=== PATIENT | female | born 1970 | race Caucasian/White ===

== ENCOUNTER 2016-07-24 20:18 | Emergency (ER) | payer SELFPAY ==
[2016-07-24] MEDS ORDERED: NAPROXEN 250 MG TABLET PO ONE (20:44)
[2016-07-24] MEDS ORDERED: HYDROCODONE/APAP 7.5/325MG TABLET PO ONE (20:44)
--- NOTE | 2016-07-24 20:48 | Emergency Department Record ---
History of Present Illness - General Chief complaint: Pain Stated complaint: LT KNEE PAIN Time Seen by Provider: 07/24/16 20:44 Source: Patient Mode of Arrival: Ambulatory Limitations: No limitations - History of Present Illness Initial comments: 46 yo female presents to ED with a CC of left knee pain that worsened today. Patient reports that she injured her knee back in May of last year, pain improved with [place] and NSAIDs, however patient was unable to follow-up for further evaluation with a PCP for insurance reasons. Patient reports that she a lot of walking today, denies specific injury, but reports that her pain symptoms worsened today. MD Complaint: Extremity pain Onset/Timin -: Month(s) Location: Left, Knee History of Same: Yes -: Yes Arthralgia Severity scale (1-10): 8 Quality: Aching Consistency: Constant, Getting worse Improves with: Immobilization, Rest Worsens with: Exertion, Walking, Weight bearing Associated Symptoms: Denies other symptoms - Related Data Home Medications Medication Instructions Recorded Confirmed Last Taken Ropinirole HCl [Ropinirole HCl] 3 mg PO TID 04/14/14 07/24/16 07/24/16 Albuterol Sulfate 0.083% [Neb] 3 ml NEB .EVERY 4-6 HOURS PRN 12/05/15 07/24/16 07/24/16 Previous Rx's Medication Instructions Recorded Omeprazole 20 mg PO DAILY #30 cap. 04/21/16 Hydrocodone/Acetaminophen [[place] 1 tab PO Q6H PRN #15 tab 07/24/16 5mg/325mg] Naproxen [Naprosyn] 500 mg PO Q12H #30 tab. 07/24/16 Allergies Allergy/AdvReac Type Severity Reaction Status Date / Time latex Allergy Unknown BLISTERS Verified 06/04/16 17:30 morphine Allergy Unknown RASH Verified 06/04/16 17:30 nitrofurantoin Allergy Unknown MUSCLE PAIN Verified 06/04/16 17:30 nitrofurantoin Allergy Unknown MUSCLE PAIN Verified 06/04/16 17:30 macrocrystalline dexamethasone [From Decadron] Allergy BEHAVIORAL Verified 06/04/16 17:30 CHANGES dexamethasone sod phosphate Allergy BEHAVIORAL Verified 06/04/16 17:30 [From Decadron] CHANGES duloxetine HCl Allergy BEHAVIORAL Verified 06/04/16 17:30 [From Cymbalta] CHANGES levofloxacin [From Levaquin] Allergy RASH Verified 06/04/16 17:30 metoclopramide HCl AdvReac HYPERSENSIT Verified 06/04/16 17:30 [From Reglan] IVITY Travel Screening - Travel/Exposure Within Last 30 Days Have you traveled within the last 30 days?: No - Travel/Exposure Within Last Year Have you traveled outside the [place] in the last year?: No - Additonal Travel Details Have you been exposed to anyone with a communicable illness?: No - Travel Symptoms Symptom Screening: None Review of Systems Constitutional: Denies: Chills, Fever, Malaise, Night sweats Eyes: Denies: Eye discharge, Eye pain ENT: Denies: Congestion, Ear pain, Epistaxis Respiratory: Denies: Cough, Dyspnea Cardiovascular: Denies: Chest pain, Dyspnea on exertion Endocrine: Denies: Fatigue, Heat or cold intolerance Gastrointestinal: Denies: Abdominal pain, Nausea, Vomiting Genitourinary: Denies: Dysuria, Frequency, Hematuria Musculoskeletal: Reports: Arthralgia. Denies: Back pain, Gout, Joint swelling Skin: Denies: Bruising, Change in color, Rash Neurological: Denies: Abnormal gait, Confusion, Headache, Seizure Psychiatric: Denies: Anxiety Hematological/Lymphatic: Denies: Anemia, Blood Clots Past Medical History - SOCIAL HISTORY Smoking Status: Never smoker Alcohol Use: Occassional Drug Use: None - RESPIRATORY Hx Respiratory Disorders: Yes Hx Asthma: Yes - CARDIOVASCULAR Hx Cardio Disorders: No - NEURO Hx Neuro Disorders: Yes Hx Seizures: Yes (2013) - GI Hx GI Disorders: Yes Hx Reflux: Yes Comment:: gastric bypass - Hx Genitourinary Disorders: No - ENDOCRINE Hx Endocrine Disorders: No - MUSCULOSKELETAL Hx Musculoskeletal Disorders: Yes Hx Arthritis: Yes Hx Fibromyalgia: Yes - PSYCH Hx Psych Problems: Yes Hx Anxiety: Yes - HEMATOLOGY/ONCOLOGY Hx Hematology/Oncology Disorders: No Family Medical History Any Significant Family History?: No Hx Cancer: Mother Hx Heart Disease: Grandparents Physical Exam - General General Appearance: Alert, Oriented x3, Cooperative, Moderate distress (tearful on examination) Limitations: No limitations - Head Head exam: Atraumatic, Normocephalic, Normal inspection Head exam detail: negative: Abrasion, Contusion, Hernández's sign, General tenderness, Hematoma, Laceration - Eye Eye exam: Normal appearance. negative: Conjunctival injection, Periorbital swelling, Periorbital tenderness, Scleral icterus - ENT Ear exam: negative: Auricular hematoma, Auricular trauma Nasal Exam: negative: Active bleeding, Discharge, Dried blood, Foreign body Mouth exam: negative: Drooling, Laceration, Muffled voice, Tongue elevation - Neck Neck exam: Normal inspection. negative: Meningismus, Tenderness - Respiratory Respiratory exam: Normal lung sounds bilaterally. negative: Rales, Respiratory distress, Rhonchi, Stridor - Cardiovascular Cardiovascular Exam: Regular rate, Normal rhythm, Normal heart sounds - GI/Abdominal GI/Abdominal exam: Soft. negative: Rebound, Rigid, Tenderness - Rectal Rectal exam: Deferred - exam: Deferred - Extremities Extremities exam: Tenderness, Other (Mild STS to the left knee, pain with palpation to the infra-patellar region, ligaments are stalbe on examination, no effusion or signs of infection are present on examination. ). negative: Calf tenderness, Joint swelling, Pedal edema - Back Back exam: Reports: Normal inspection. Denies: CVA tenderness (R), CVA tenderness (L), Paraspinal tenderness, Rash noted - Neurological Neurological exam: Alert, Oriented X3 - Psychiatric Psychiatric exam: Normal affect, Normal mood - Skin Skin exam: Normal color. negative: Abrasion Type of lesion: negative: abrasion Course Vital Signs 07/24/16 20:24 Temperature 97.4 F L Pulse Rate [ 109 H Gyn ] Respiratory 20 Rate Blood Pressure 130/76 [Left Arm] Pulse Ox 97 - Reevaluation(s) Reevaluation #1: 07/24/16 20:53 Previous radiographs reviewed from 06/04/16, small joint effusion, medial joint compartment narrowing, no acute process noted. Patient was counseled regarding her previous radiographs and the need for follow -up/further evaluation of her knee pain, will have the patient follow-up in the [facility] specialty clinic for further evaluation of her knee pain symptoms. Disposition Disposition: Discharge Clinical Impression: Knee pain, chronic Qualifiers: Laterality: left Qualified Code(s): M25.562 - Pain in left knee Disposition: Home, Self-Care Condition: (2) Stable Instructions: Knee Pain (ED) Additional Instructions: Return to ED if your symptoms worsen or if you have any concerns. [place] and Naprosyn as directed. Crutches as directed for comfort. Follow-up in the [facility] Specialty Clinic for further evaluation of your knee pain symptoms this coming week. Prescriptions: Naproxen [Naprosyn] 500 mg PO Q12H #30 tab. Hydrocodone/Acetaminophen [[place] 5mg/325mg] 1 tab PO Q6H PRN #15 tab PRN Reason: Pain - General Referrals: BALDO TOBAR [DOCTOR OF OSTEOPATH] - [facility] Specialty Clin[facility] [Provider Group] Forms: Patient Portal Access Time of Disposition: 20:48
== END 2016-07-24 20:58 | disposition home or self-care (01) ==
LOC: ER 20:18
DX: M25.562 Pain in left knee (principal)
CPT/HCPCS: 99283

== ENCOUNTER 2016-09-24 23:06 | Emergency (ER) | payer MEDICAID ==
--- NOTE | 2016-09-24 23:31 | Emergency Department Record ---
History of Present Illness - General Chief complaint: General Stated complaint: RESTLESS LEGS Time Seen by Provider: 09/24/16 23:22 Source: Patient Mode of Arrival: Ambulatory Limitations: No limitations - History of Present Illness Initial comments: 46 yo female presents with intense restless leg syndrome. She has been out of Requip for 2 days. She states she is unable to sleep tonight due to her symptoms. No swelling. No trauma. No fever. She has been out of the medicine due to cost. MD Complaint: Extremity pain -: Days(s) Location: Bilateral History of Same: Yes -: Yes Myalgia Radiation: Distal Severity scale (1-10): 10 Consistency: Constant Improves with: Nothing Worsens with: Nothing Associated Symptoms: Denies other symptoms - Related Data Home Medications Medication Instructions Recorded Confirmed Last Taken Ropinirole HCl [Ropinirole HCl] 4 mg PO QID 04/14/14 09/24/16 09/22/16 Albuterol Sulfate 0.083% [Neb] 3 ml NEB .EVERY 4-6 HOURS PRN 12/05/15 07/24/16 07/24/16 Previous Rx's Medication Instructions Recorded Omeprazole 20 mg PO DAILY #30 cap. 04/21/16 Ropinirole HCl [Requip] 4 mg PO QID #28 tablet 09/24/16 Allergies Allergy/AdvReac Type Severity Reaction Status Date / Time latex Allergy Unknown BLISTERS Verified 09/24/16 23:11 morphine Allergy Unknown RASH Verified 09/24/16 23:11 nitrofurantoin Allergy Unknown MUSCLE PAIN Verified 09/24/16 23:11 nitrofurantoin Allergy Unknown MUSCLE PAIN Verified 09/24/16 23:11 macrocrystalline dexamethasone [From Decadron] Allergy BEHAVIORAL Verified 09/24/16 23:11 CHANGES dexamethasone sod phosphate Allergy BEHAVIORAL Verified 09/24/16 23:11 [From Decadron] CHANGES duloxetine HCl Allergy BEHAVIORAL Verified 09/24/16 23:11 [From Cymbalta] CHANGES levofloxacin [From Levaquin] Allergy RASH Verified 09/24/16 23:11 metoclopramide HCl AdvReac HYPERSENSIT Verified 09/24/16 23:11 [From Reglan] IVITY Travel Screening - Travel/Exposure Within Last 30 Days Have you traveled within the last 30 days?: No - Travel/Exposure Within Last Year Have you traveled outside the [place] in the last year?: No - Additonal Travel Details Have you been exposed to anyone with a communicable illness?: No - Travel Symptoms Symptom Screening: None Review of Systems Constitutional: Denies: Chills, Fever, Weakness Eyes: Denies: Eye discharge ENT: Denies: Congestion, Throat pain Respiratory: Denies: Cough, Dyspnea, Hemoptysis, Wheezes Cardiovascular: Denies: Chest pain, Palpitations, Syncope Endocrine: Denies: Fatigue Gastrointestinal: Denies: Abdominal pain, Diarrhea, Nausea, Vomiting Genitourinary: Denies: Dysuria, Urgency Musculoskeletal: Denies: Arthralgia, Back pain, Joint swelling, Myalgia, Neck pain Skin: Denies: Change in color, Rash Neurological: Reports: Tingling. Denies: Headache, Numbness, Weakness Psychiatric: Reports: Anxiety Hematological/Lymphatic: Denies: Blood Clots, Easy bleeding, Easy bruising, Swollen glands Past Medical History - SOCIAL HISTORY Smoking Status: Never smoker Alcohol Use: Occassional Drug Use: None - RESPIRATORY Hx Respiratory Disorders: Yes Hx Asthma: Yes - CARDIOVASCULAR Hx Cardio Disorders: No - NEURO Hx Neuro Disorders: Yes Hx Seizures: Yes (2013) - GI Hx GI Disorders: Yes Hx Reflux: Yes Comment:: gastric bypass - Hx Genitourinary Disorders: No - ENDOCRINE Hx Endocrine Disorders: No - MUSCULOSKELETAL Hx Musculoskeletal Disorders: Yes Hx Arthritis: Yes Hx Fibromyalgia: Yes - PSYCH Hx Psych Problems: Yes Hx Anxiety: Yes - HEMATOLOGY/ONCOLOGY Hx Hematology/Oncology Disorders: No Family Medical History Any Significant Family History?: No Hx Cancer: Mother Hx Heart Disease: Grandparents Physical Exam - General General Appearance: Alert, Oriented x3, Cooperative, No acute distress, Anxious Limitations: No limitations - Head Head exam: Normal inspection - Eye Eye exam: Normal appearance, PERRL. negative: Conjunctival injection, Periorbital swelling - ENT ENT exam: Normal exam Ear exam: Normal external inspection Nasal Exam: Normal inspection Mouth exam: Normal external inspection Teeth exam: Normal inspection - Neck Neck exam: Normal inspection. negative: Lymphadenopathy - Respiratory Respiratory exam: Normal lung sounds bilaterally. negative: Respiratory distress - Cardiovascular Cardiovascular Exam: Regular rate, Normal rhythm, Normal heart sounds - GI/Abdominal GI/Abdominal exam: Soft. negative: Tenderness - Rectal Rectal exam: Deferred - exam: Deferred - Extremities Extremities exam: Normal inspection, Full ROM, Normal capillary refill, Other ( no redness or warmth). negative: Pedal edema, Tenderness - Back Back exam: Denies: CVA tenderness (R), CVA tenderness (L) - Neurological Neurological exam: Alert, Normal gait, Oriented X3, Reflexes normal - Psychiatric Psychiatric exam: Normal affect, Normal mood - Skin Skin exam: Dry, Intact, Normal color, Warm Course Vital Signs 09/24/16 23:13 Temperature 98.1 F Pulse Rate 100 H Respiratory 22 Rate Blood Pressure 114/77 Pulse Ox 99 - Reevaluation(s) Reevaluation #1: Vitals reviewed. No physical findings to suggest acute process. 09/24/16 23:32 Disposition Clinical Impression: Restless leg syndrome Disposition: Home, Self-Care Condition: (1) Good Instructions: Restless Legs Syndrome (ED) Additional Instructions: Call your doctor for close follow up Return if you have any new concerns or symptoms Prescriptions: Ropinirole HCl [Requip] 4 mg PO QID #28 tablet Forms: Patient Portal Access
[2016-09-24] MEDS ORDERED: ROPINIROLE HCL 1 MG TABLET PO STA (23:32)
== END 2016-09-24 23:45 | disposition home or self-care (01) ==
LOC: ER 23:06
DX: G25.81 Restless legs syndrome (principal)
CPT/HCPCS: 99282

== ENCOUNTER 2016-10-27 17:34 | Emergency (ER) | payer MEDICAID ==
[2016-10-27] MEDS ORDERED: 0.9 % SODIUM CHLORIDE 1,000 ML BAG IV ONE (17:56)
[2016-10-27] MEDS: DIPHENHYDRAMINE HCL IV 50 MG/ML VIAL IVP ONE (18:12)
[2016-10-27 18:13] LABS: HEMATOCRIT 38.2 % (35.0-47.0); HEMOGLOBIN 11.4 gm/dl (11.6-16.0); MEAN CELL VOLUME 84.9 fl (81-97); MEAN CORPUSCULAR HEMOGLOBIN 25.3 pg (27-33); MEAN CORPUSCULAR HGB CONC 29.8 g/dl (32-36); MEAN PLATELET VOLUME 9.5 fl (7.4-10.4); PLATELET COUNT 490 K/uL (130-400); WHITE BLOOD COUNT W/O DIFF 6.4 K/uL (4.2-12.2)
[2016-10-27] MEDS: METHYLPREDNISOLONE PF 125MG/VIAL IVP ONE (18:13)
[2016-10-27 18:23] LABS: ANION GAP 11.3 (7-16); BLOOD UREA NITROGEN 12 mg/dL (7-17); CARBON DIOXIDE 14.7 mmol/L (22-30); CREATININE 0.8 mg/dL (0.52-1.04); EST GLOMERULAR FILTRATION RATE > 60 ml/min; GLUCOSE,RANDOM 137 mg/dL (70-110)
[2016-10-27 18:25] LABS: ANISOCYTOSIS 1+
--- NOTE | 2016-10-27 18:32 | Emergency Department Record ---
History of Present Illness - General Chief complaint: Rash Stated complaint: RASH ALL OVER BODY Time Seen by Provider: 10/27/16 17:55 Source: Patient, RN notes reviewed Mode of Arrival: Ambulatory - History of Present Illness Initial comments: rash on the thighs and arms and itchy and started 4 days ago and she denies no new foods and she put skin dyes on foot left and ankles and left hand Onset/Timin -: Days(s) Hx Tetanus Toxoid Vaccination: Yes Year of Tetanus Vaccination: 2015 Location: Generalized Severity: Moderate Consistency: Constant Improves with: None Worsens with: None Associated symptoms: Itching Treatments Prior to Arrival: Benadryl, OTC topical medication Treatment Prior to Arrival Comment:: 75 mg - Related Data Home Medications Medication Instructions Recorded Confirmed Last Taken Ropinirole HCl [Ropinirole HCl] 4 mg PO QID 04/14/14 10/27/16 10/27/16 Albuterol Sulfate 0.083% [Neb] 3 ml NEB .EVERY 4-6 HOURS PRN 12/05/15 07/24/16 07/24/16 Previous Rx's Medication Instructions Recorded Omeprazole 20 mg PO DAILY #30 cap. 04/21/16 Diphenhydramine HCl [Benadryl] 50 mg PO Q6H #30 cap 10/27/16 Lorazepam [Ativan] 1 mg PO TID #20 tablet 10/27/16 Prednisone [Prednisone 10Mg] 10 mg PO ASDIR #30 tab 10/27/16 Allergies Allergy/AdvReac Type Severity Reaction Status Date / Time latex Allergy Unknown BLISTERS Verified 10/27/16 17:43 morphine Allergy Unknown RASH Verified 10/27/16 17:43 nitrofurantoin Allergy Unknown MUSCLE PAIN Verified 10/27/16 17:43 nitrofurantoin Allergy Unknown MUSCLE PAIN Verified 10/27/16 17:43 macrocrystalline dexamethasone [From Decadron] Allergy BEHAVIORAL Verified 10/27/16 17:43 CHANGES dexamethasone sod phosphate Allergy BEHAVIORAL Verified 10/27/16 17:43 [From Decadron] CHANGES duloxetine HCl Allergy BEHAVIORAL Verified 10/27/16 17:43 [From Cymbalta] CHANGES levofloxacin [From Levaquin] Allergy RASH Verified 10/27/16 17:43 metoclopramide HCl AdvReac HYPERSENSIT Verified 10/27/16 17:43 [From Reglan] IVITY Travel Screening - Travel/Exposure Within Last 30 Days Have you traveled within the last 30 days?: No - Travel/Exposure Within Last Year Have you traveled outside the [place] in the last year?: No - Additonal Travel Details Have you been exposed to anyone with a communicable illness?: No - Travel Symptoms Symptom Screening: None Review of Systems Reviewed: No additional complaints except as noted below Constitutional: Reports: As per HPI. Denies: Chills, Fever, Malaise, Night sweats, Weakness, Weight change Eyes: Reports: As per HPI. Denies: Eye discharge, Eye pain, Photophobia, Vision change ENT: Reports: As per HPI. Denies: Congestion, Dental pain, Ear pain, Epistaxis , Hearing loss, Throat pain Respiratory: Reports: As per HPI. Denies: Cough, Dyspnea, Hemoptysis, Stridor, Wheezes Cardiovascular: Reports: As per HPI. Denies: Arrhythmia, Chest pain, Dyspnea on exertion, Edema, Murmurs, Orthopnea, Palpitations, Paroxysmal nocturnal dyspnea, Rheumatic Fever, Syncope Endocrine: Reports: As per HPI. Denies: Fatigue, Heat or cold intolerance, Polydipsia, Polyuria Gastrointestinal: Reports: As per HPI. Denies: Abdominal pain, Constipation, Diarrhea, Hematemesis, Hematochezia, Melena, Nausea, Vomiting Genitourinary: Reports: As per HPI. Denies: Abnormal menses, Discharge, Dyspareunia, Dysuria, Frequency, Hematuria, Incontinence, Retention, Urgency Musculoskeletal: Reports: As per HPI. Denies: Arthralgia, Back pain, Gout, Joint swelling, Myalgia, Neck pain Skin: Reports: As per HPI, Pruritus, Rash. Denies: Bruising, Change in color, Change in hair/nails, Lesions Neurological: Reports: As per HPI. Denies: Abnormal gait, Confusion, Headache, Numbness, Paresthesias, Seizure, Tingling, Tremors, Vertigo, Weakness Psychiatric: Reports: As per HPI. Denies: Anxiety, Auditory hallucinations, Depression, Homicidal thoughts, Suicidal thoughts, Visual hallucinations Hematological/Lymphatic: Reports: As per HPI. Denies: Anemia, Blood Clots, Easy bleeding, Easy bruising, Swollen glands Past Medical History - SOCIAL HISTORY Smoking Status: Never smoker Alcohol Use: Occassional Drug Use: None - RESPIRATORY Hx Respiratory Disorders: Yes Hx Asthma: Yes - CARDIOVASCULAR Hx Cardio Disorders: No - NEURO Hx Neuro Disorders: Yes Hx Seizures: Yes (2013) - GI Hx GI Disorders: Yes Hx Reflux: Yes Comment:: gastric bypass - Hx Genitourinary Disorders: No - ENDOCRINE Hx Endocrine Disorders: No - MUSCULOSKELETAL Hx Musculoskeletal Disorders: Yes Hx Arthritis: Yes Hx Fibromyalgia: Yes - PSYCH Hx Psych Problems: Yes Hx Anxiety: Yes - HEMATOLOGY/ONCOLOGY Hx Hematology/Oncology Disorders: No Family Medical History Any Significant Family History?: Yes Hx Cancer: Mother Hx Heart Disease: Grandparents Physical Exam - General General Appearance: Alert, Oriented x3, Cooperative, No acute distress - Head Head exam: Normal inspection - Eye Eye exam: Normal appearance, PERRL Pupils: Normal accommodation - ENT ENT exam: Normal exam, Mucous membranes moist, Normal external ear exam, Normal orophraynx, TM's normal bilaterally Ear exam: Normal external inspection. negative: External canal tenderness Nasal Exam: Normal inspection. negative: Discharge, Sinus tenderness Mouth exam: Normal external inspection, Tongue normal Teeth exam: Normal inspection. negative: Dental caries Throat exam: Normal inspection. negative: Tonsillar erythema, Tonsillar exudate - Neck Neck exam: Normal inspection, Full ROM. negative: Tenderness - Respiratory Respiratory exam: Normal lung sounds bilaterally. negative: Respiratory distress - Cardiovascular Cardiovascular Exam: Regular rate, Normal rhythm, Normal heart sounds - GI/Abdominal GI/Abdominal exam: Soft, Normal bowel sounds. negative: Tenderness - Rectal Rectal exam: Deferred - exam: Deferred - Extremities Extremities exam: Normal inspection, Full ROM, Normal capillary refill. negative: Tenderness - Back Back exam: Reports: Normal inspection, Full ROM. Denies: Muscle spasm, Rash noted, Tenderness - Neurological Neurological exam: Alert, Normal gait, Oriented X3, Reflexes normal - Psychiatric Psychiatric exam: Normal affect, Normal mood - Skin Skin exam: Rash, Urticaria, Other (very itchy rash) Course Vital Signs 10/27/16 10/27/16 17:44 17:45 Temperature 97.9 F 97.9 F Pulse Rate 131 H Pulse Rate [ 131 H Pulse Ox Probe] Respiratory 18 20 Rate Blood Pressure 127/89 Blood Pressure 127/89 [Left Arm] Pulse Ox 98 98 Medical Decision Making - Lab Data Result diagrams: 10/27/16 18:05 10/27/16 18:05 Lab Results 10/27/16 10/27/16 Range/Units 18:05 18:05 WBC 6.4 (4.2-12.2) K/uL RBC 4.50 (3.80-5.40) M/uL Hgb 11.4 L (11.6-16.0) gm/dl Hct 38.2 (35.0-47.0) % MCV 84.9 (81-97) fl MCH 25.3 L (27-33) pg MCHC 29.8 L (32-36) g/dl RDW 21.0 H (11.5-14.5) % Plt Count 490 H (130-400) K/uL MPV 9.5 (7.4-10.4) fl Neutrophils % 97.0 H (47-80) % Eosinophils % Not Reportable Basophils % Not Reportable Lymphocytes 3.0 L (16-45) % Monocytes 0.0 (0-9) % Anisocytosis 1+ Sodium 136 (136-145) mmol/L Potassium 3.7 (3.5-5.1) mmol/L Chloride 110 H (98-107) mmol/L Carbon Dioxide 14.7 L (22-30) mmol/L Anion Gap 11.3 (7-16) BUN 12 (7-17) mg/dL Creatinine 0.8 (0.52-1.04) mg/dL Estimated GFR > 60 ml/min Random Glucose 137 H (70-110) mg/dL Calcium 9.4 (8.5-10.1) mg/dL Disposition Clinical Impression: Urticaria, Itchy skin Disposition: Home, Self-Care Condition: (1) Good Instructions: Urticaria (ED) Additional Instructions: follow up with family in 1 to 7 days use aveno bath powder twice aday Prescriptions: Diphenhydramine HCl [Benadryl] 50 mg PO Q6H #30 cap Lorazepam [Ativan] 1 mg PO TID #20 tablet Prednisone [Prednisone 10Mg] 10 mg PO ASDIR #30 tab Forms: Patient Portal Access Time of Disposition: 18:44
[2016-10-27] MEDS: LORAZEPAM 2 MG/ML VIAL IV ONE (18:43)
--- NOTE | 2016-10-27 18:54 | Emergency Department Record ---
History of Present Illness - General Chief complaint: Rash Stated complaint: RASH ALL OVER BODY Time Seen by Provider: 10/27/16 17:55 Source: Patient, RN notes reviewed Mode of Arrival: Ambulatory - History of Present Illness Onset/Timin -: Days(s) Hx Tetanus Toxoid Vaccination: Yes Year of Tetanus Vaccination: 2015 Location: Generalized Severity: Moderate Consistency: Constant Improves with: None Worsens with: None Associated symptoms: Itching Treatments Prior to Arrival: Benadryl, OTC topical medication Treatment Prior to Arrival Comment:: 75 mg - Related Data Home Medications Medication Instructions Recorded Confirmed Last Taken Ropinirole HCl [Ropinirole HCl] 4 mg PO QID 04/14/14 10/27/16 10/27/16 Albuterol Sulfate 0.083% [Neb] 3 ml NEB .EVERY 4-6 HOURS PRN 12/05/15 07/24/16 07/24/16 Previous Rx's Medication Instructions Recorded Omeprazole 20 mg PO DAILY #30 cap.dr 04/21/16 Diphenhydramine HCl [Benadryl] 50 mg PO Q6H #30 cap 10/27/16 Diphenhydramine HCl [Benadryl] 50 mg PO Q6H #30 cap 10/27/16 Lorazepam [Ativan] 1 mg PO TID #20 tablet 10/27/16 Prednisone [Prednisone 10Mg] 10 mg PO ASDIR #30 tab 10/27/16 Prednisone [Prednisone 10Mg] 10 mg PO ASDIR #30 tab 10/27/16 Allergies Allergy/AdvReac Type Severity Reaction Status Date / Time latex Allergy Unknown BLISTERS Verified 10/27/16 17:43 morphine Allergy Unknown RASH Verified 10/27/16 17:43 nitrofurantoin Allergy Unknown MUSCLE PAIN Verified 10/27/16 17:43 nitrofurantoin Allergy Unknown MUSCLE PAIN Verified 10/27/16 17:43 macrocrystalline dexamethasone [From Decadron] Allergy BEHAVIORAL Verified 10/27/16 17:43 CHANGES dexamethasone sod phosphate Allergy BEHAVIORAL Verified 10/27/16 17:43 [From Decadron] CHANGES duloxetine HCl Allergy BEHAVIORAL Verified 10/27/16 17:43 [From Cymbalta] CHANGES levofloxacin [From Levaquin] Allergy RASH Verified 10/27/16 17:43 metoclopramide HCl AdvReac HYPERSENSIT Verified 10/27/16 17:43 [From [facility]] IVITY Travel Screening - Travel/Exposure Within Last 30 Days Have you traveled within the last 30 days?: No - Travel/Exposure Within Last Year Have you traveled outside the [place] in the last year?: No - Additonal Travel Details Have you been exposed to anyone with a communicable illness?: No - Travel Symptoms Symptom Screening: None Review of Systems Constitutional: Reports: As per HPI. Denies: Chills, Fever, Malaise, Night sweats, Weakness, Weight change Eyes: Reports: As per HPI. Denies: Eye discharge, Eye pain, Photophobia, Vision change ENT: Reports: As per HPI. Denies: Congestion, Dental pain, Ear pain, Epistaxis , Hearing loss, Throat pain Respiratory: Reports: As per HPI. Denies: Cough, Dyspnea, Hemoptysis, Stridor, Wheezes Cardiovascular: Reports: As per HPI. Denies: Arrhythmia, Chest pain, Dyspnea on exertion, Edema, Murmurs, Orthopnea, Palpitations, Paroxysmal nocturnal dyspnea, Rheumatic Fever, Syncope Endocrine: Reports: As per HPI. Denies: Fatigue, Heat or cold intolerance, Polydipsia, Polyuria Gastrointestinal: Reports: As per HPI. Denies: Abdominal pain, Constipation, Diarrhea, Hematemesis, Hematochezia, Melena, Nausea, Vomiting Genitourinary: Reports: As per HPI. Denies: Abnormal menses, Discharge, Dyspareunia, Dysuria, Frequency, Hematuria, Incontinence, Retention, Urgency Musculoskeletal: Reports: As per HPI. Denies: Arthralgia, Back pain, Gout, Joint swelling, Myalgia, Neck pain Skin: Reports: As per HPI, Pruritus, Rash. Denies: Bruising, Change in color, Change in hair/nails, Lesions Neurological: Reports: As per HPI. Denies: Abnormal gait, Confusion, Headache, Numbness, Paresthesias, Seizure, Tingling, Tremors, Vertigo, Weakness Psychiatric: Reports: As per HPI. Denies: Anxiety, Auditory hallucinations, Depression, Homicidal thoughts, Suicidal thoughts, Visual hallucinations Hematological/Lymphatic: Reports: As per HPI. Denies: Anemia, Blood Clots, Easy bleeding, Easy bruising, Swollen glands Past Medical History - SOCIAL HISTORY Smoking Status: Never smoker Alcohol Use: Occassional Drug Use: None - RESPIRATORY Hx Respiratory Disorders: Yes Hx Asthma: Yes - CARDIOVASCULAR Hx Cardio Disorders: No - NEURO Hx Neuro Disorders: Yes Hx Seizures: Yes (2013) - GI Hx GI Disorders: Yes Hx Reflux: Yes Comment:: gastric bypass - Hx Genitourinary Disorders: No - ENDOCRINE Hx Endocrine Disorders: No - MUSCULOSKELETAL Hx Musculoskeletal Disorders: Yes Hx Arthritis: Yes Hx Fibromyalgia: Yes - PSYCH Hx Psych Problems: Yes Hx Anxiety: Yes - HEMATOLOGY/ONCOLOGY Hx Hematology/Oncology Disorders: No Family Medical History Any Significant Family History?: Yes Hx Cancer: Mother Hx Heart Disease: Grandparents Course Vital Signs 10/27/16 10/27/16 17:44 17:45 Temperature 97.9 F 97.9 F Pulse Rate 131 H Pulse Rate [ 131 H Pulse Ox Probe] Respiratory 18 20 Rate Blood Pressure 127/89 Blood Pressure 127/89 [Left Arm] Pulse Ox 98 98 Medical Decision Making - Lab Data Result diagrams: 10/27/16 18:05 10/27/16 18:05 Lab Results 10/27/16 10/27/16 Range/Units 18:05 18:05 WBC 6.4 (4.2-12.2) K/uL RBC 4.50 (3.80-5.40) M/uL Hgb 11.4 L (11.6-16.0) gm/dl Hct 38.2 (35.0-47.0) % MCV 84.9 (81-97) fl MCH 25.3 L (27-33) pg MCHC 29.8 L (32-36) g/dl RDW 21.0 H (11.5-14.5) % Plt Count 490 H (130-400) K/uL MPV 9.5 (7.4-10.4) fl Neutrophils % 97.0 H (47-80) % Eosinophils % Not Reportable Basophils % Not Reportable Lymphocytes 3.0 L (16-45) % Monocytes 0.0 (0-9) % Anisocytosis 1+ Sodium 136 (136-145) mmol/L Potassium 3.7 (3.5-5.1) mmol/L Chloride 110 H (98-107) mmol/L Carbon Dioxide 14.7 L (22-30) mmol/L Anion Gap 11.3 (7-16) BUN 12 (7-17) mg/dL Creatinine 0.8 (0.52-1.04) mg/dL Estimated GFR > 60 ml/min Random Glucose 137 H (70-110) mg/dL Calcium 9.4 (8.5-10.1) mg/dL Disposition Clinical Impression: Urticaria, Itchy skin Disposition: Home, Self-Care Condition: (1) Good Instructions: Urticaria (ED) Additional Instructions: follow up with family in 1 to 7 days use aveno bath powder twice aday Prescriptions: Diphenhydramine HCl [Benadryl] 50 mg PO Q6H #30 cap Diphenhydramine HCl [Benadryl] 50 mg PO Q6H #30 cap Lorazepam [Ativan] 1 mg PO TID #20 tablet Prednisone [Prednisone 10Mg] 10 mg PO ASDIR #30 tab Prednisone [Prednisone 10Mg] 10 mg PO ASDIR #30 tab Forms: Patient Portal Access Time of Disposition: 18:54
== END 2016-10-27 19:05 | disposition home or self-care (01) ==
LOC: ER 17:34
DX: L50.9 Urticaria, unspecified (principal); L29.9 Pruritus, unspecified
CPT/HCPCS: 99284 ×2; 96374; 96375; 80048; 85027; J2060; J1200; J2930

== ENCOUNTER 2017-03-28 20:40 | Emergency (ER) | payer OTHER, MEDICAID ==
[2017-03-28] MEDS ORDERED: DEXAMETHASONE SOD PHOSPHATE 10MG/ML VIAL PO ONE (20:55)
[2017-03-28] MEDS ORDERED: PREDNISOLONE 15MG/5ML 10ML UD PO ONE (20:58)
--- NOTE | 2017-03-28 21:01 | Emergency Department Record ---
History of Present Illness - General Chief Complaint: Shortness of breath Stated Complaint: IRAJ,LOSS OF VOICE Time Seen by Provider: 03/28/17 20:55 Source: Patient Mode of Arrival: Ambulatory Limitations: No limitations - History of Present Illness Initial Comments: 46 yo female presents to ED with a CC of URI symptoms for 2 weeks resulting in loss of voice, but a stressful event that occurred tonight resulting in worsening of her "vocal cord dysfunction" symptoms. Patient also reports wheezing recently related to her asthma. Patient denies difficultly swallowing or throat swelling symptoms, and reports similar symptoms previously. Patient denies history of epiglotitis or tracheal malacia. Patient denies fevers, chills, or drooling symptoms. Onset/Timin -: Hour(s) Severity: Moderate Consistency: Constant Improves With: Nothing Worsens With: Other (talking) Known History Of: Asthma Context: Anxiety Associated Symptoms: Denies other symptoms Treatments Prior to Arrival: None - Related Data Home Oxygen Therapy: No Previous Rx's Medication Instructions Recorded Prednisone [Prednisone 20Mg] 20 mg PO TID #12 tab 03/28/17 Ropinirole HCl [Requip] 4 mg PO QID #28 tablet 03/28/17 Allergies Allergy/AdvReac Type Severity Reaction Status Date / Time latex Allergy Unknown BLISTERS Verified 10/27/16 17:43 morphine Allergy Unknown RASH Verified 10/27/16 17:43 nitrofurantoin Allergy Unknown MUSCLE PAIN Verified 10/27/16 17:43 nitrofurantoin Allergy Unknown MUSCLE PAIN Verified 10/27/16 17:43 macrocrystalline dexamethasone [From Decadron] Allergy BEHAVIORAL Verified 10/27/16 17:43 CHANGES dexamethasone sod phosphate Allergy BEHAVIORAL Verified 10/27/16 17:43 [From Decadron] CHANGES duloxetine HCl Allergy BEHAVIORAL Verified 10/27/16 17:43 [From Cymbalta] CHANGES levofloxacin [From Levaquin] Allergy RASH Verified 10/27/16 17:43 metoclopramide HCl AdvReac HYPERSENSIT Verified 10/27/16 17:43 [From Reglan] IVITY Travel Screening - Travel/Exposure Within Last 30 Days Have you traveled within the last 30 days?: No Review of Systems Constitutional: Denies: Chills, Fever, Malaise, Night sweats Eyes: Denies: Eye discharge, Eye pain ENT: Reports: Congestion, Throat pain. Denies: Ear pain, Epistaxis Respiratory: Reports: Cough, Wheezes. Denies: Dyspnea Cardiovascular: Denies: Chest pain, Dyspnea on exertion Endocrine: Denies: Fatigue, Heat or cold intolerance Gastrointestinal: Denies: Abdominal pain, Nausea, Vomiting Genitourinary: Denies: Incontinence, Retention Musculoskeletal: Denies: Arthralgia, Back pain, Gout, Joint swelling Skin: Denies: Bruising, Change in color Neurological: Denies: Abnormal gait, Confusion, Headache, Seizure Psychiatric: Reports: Anxiety Hematological/Lymphatic: Denies: Anemia, Blood Clots Past Medical History - SOCIAL HISTORY Smoking Status: Never smoker Alcohol Use: None Drug Use: None - RESPIRATORY Hx Respiratory Disorders: Yes Hx Asthma: Yes Comment:: "vocal coord disorder" - CARDIOVASCULAR Hx Cardio Disorders: No - NEURO Hx Neuro Disorders: Yes Hx Seizures: Yes (2013) - GI Hx GI Disorders: Yes Hx Reflux: Yes Comment:: gastric bypass - Hx Genitourinary Disorders: No - ENDOCRINE Hx Endocrine Disorders: No - MUSCULOSKELETAL Hx Musculoskeletal Disorders: Yes Hx Arthritis: Yes Hx Fibromyalgia: Yes - PSYCH Hx Psych Problems: Yes Hx Anxiety: Yes - HEMATOLOGY/ONCOLOGY Hx Hematology/Oncology Disorders: No Family Medical History Any Significant Family History?: Yes Hx Cancer: Mother Hx Heart Disease: Grandparents Physical Exam - General General Appearance: Alert, Oriented x3, Cooperative, Moderate distress, Anxious , Other (patient is tearful on examination, no stridor present, very mild wheezes to the bases bilaterally, no acute uppre respiratory distress noted on examination) - Head Head exam: Atraumatic, Normocephalic, Normal inspection Head exam detail: negative: Abrasion, Contusion, Hernández's sign, General tenderness, Hematoma, Laceration - Eye Eye exam: Conjunctival injection. negative: Periorbital swelling, Periorbital tenderness, Scleral icterus - ENT Ear exam: negative: Auricular hematoma, Auricular trauma Nasal Exam: negative: Active bleeding, Discharge, Dried blood, Foreign body Mouth exam: negative: Drooling, Laceration, Muffled voice, Tongue elevation - Neck Neck exam: Normal inspection. negative: Meningismus, Tenderness - Respiratory Respiratory exam: Normal lung sounds bilaterally, Wheezes (very mild to the bases bilaterally). negative: Rales, Respiratory distress - Cardiovascular Cardiovascular Exam: Regular rate, Normal rhythm, Normal heart sounds - GI/Abdominal GI/Abdominal exam: Soft. negative: Rebound, Rigid, Tenderness - Rectal Rectal exam: Deferred - exam: Deferred - Extremities Extremities exam: Normal inspection. negative: Calf tenderness, Pedal edema, Tenderness - Back Back exam: Denies: CVA tenderness (R), CVA tenderness (L) - Neurological Neurological exam: Alert, Normal gait, Oriented X3 - Psychiatric Psychiatric exam: Anxious - Skin Skin exam: Normal color. negative: Abrasion Type of lesion: negative: abrasion Course Vital Signs 03/28/17 20:46 Temperature 98.3 F Pulse Rate [ 110 H Pulse Ox Probe] Respiratory 32 H Rate Blood Pressure 116/101 [Left Arm] Pulse Ox 100 - Reevaluation(s) Reevaluation #1: 03/28/17 21:03 Patient seen and examined, Prednisolone ordered (allergy to Decadron) as well as soft-tissue neck radiographs for further evaluation. Reevaluation #2: 03/28/17 21:28 Soft-tissue neck: Naso-pharyngeal airway no adequately visualized, otherwise negative. Patient receiving cool mist at this time, will reassess in 15 minutes. Reevaluation #3: 03/28/17 21:37 Patient reassessed and updated on her ST Neck films, pulse down 87 (from 110), Biox 100%, and the patient reports that she is clinically much improved. Will continue to observe in ED. Reevaluation #4: 03/28/17 21:51 Cool mist completed/removed, patient is calm, nearly asleep and much improved. Will continue to monitor for 15-20 minutes off the cool mist and patient continues to appear well, will discharge home on Prednisone. Disposition Disposition: Discharge Clinical Impression: Laryngitis acute, spasmodic Disposition: Home, Self-Care Condition: (2) Stable Instructions: Laryngitis (ED) Additional Instructions: Return to ED if your symptoms worsen or if you have any concerns. Prednisone as directed. Follow-up with your family doctor in 1-3 days as directed. Prescriptions: Prednisone [Prednisone 20Mg] 20 mg PO TID #12 tab Ropinirole HCl [Requip] 4 mg PO QID #28 tablet Forms: Patient Portal Access Time of Disposition: 21:54 Quality - Quality Measures Quality Measures: N/A - Blood Pressure Screening Does Patient Have Any of the Following: No Blood Pressure Classification: Normal BP Reading Systolic Measurement: 106 Diastolic Measurement: 75 Screening for High Blood Pressure: < Normal BP, F/U Not Required > [G7109]
[2017-03-28] MEDS ORDERED: ROPINIROLE HCL 1 MG TABLET PO ONE (22:09)
--- NOTE | 2017-03-30 10:33 | RADIOLOGY REPORT ---
EXAM: NECK, SOFT TISSUE HISTORY: VOCAL CORD DYSFUNCTION. UPPER RESPIRATORY INFECTION FOR TWO WEEKS. COMPARISON: None. TECHNIQUE: Two-view neck soft tissues. FINDINGS: The nasopharyngeal airway is not optimally profiled. Epiglottic shadow is normal. Prevertebral soft tissues are normal. IMPRESSION: NASOPHARYNGEAL AIRWAY IS NOT OPTIMALLY PROFILED. REMAINDER OF THE STUDY IS UNREMARKABLE. JOB NUMBER: [id number] MTDD
== END 2017-03-28 22:17 | disposition home or self-care (01) ==
LOC: ER 20:40
DX: J04.0 Acute laryngitis (principal); R06.02 Shortness of breath
CPT/HCPCS: 70360; 99283

== ENCOUNTER 2017-04-17 22:00 | Emergency (ER) | payer OTHER, MEDICAID ==
--- NOTE | 2017-04-17 23:01 | Emergency Department Record ---
History of Present Illness - General Chief Complaint: General Stated Complaint: LARENGITIS Time Seen by Provider: 04/17/17 22:41 Source: Patient Mode of Arrival: Ambulatory Limitations: No limitations - History of Present Illness Initial comments: 46 yo female presents to ED for a refill on her requip medication that she takes for restless leg syndrome. Patient reports she missed an appointment with her PCP last week due to a in the family, reports that she was unable to obtain a refill on her medication. Patient also reports loss of voice symptoms for the past 5-6 weeks following an URI that she received treatment with prednisone for several weeks ago. Patient denies fevers, chills , or recent illness. Onset/Timin -: Week(s) Location: Left, Right, Lower extremity Consistency: Intermittent Improves with: Movement Worsens with: None Associated Symptoms: Denies other symptoms Treatments Prior to Arrival: None - Reynaldo Coma Scale Eye Response: (4) Open spontaneously Motor Response: (6) Obeys commands Verbal Response: (5) Oriented [place] Total: 15 - Related Data Home Medications Medication Instructions Recorded Confirmed Last Taken Ropinirole HCl [Requip] 4 mg PO TID 04/17/17 04/17/17 Unknown Previous Rx's Medication Instructions Recorded Ropinirole HCl [Requip] 4 mg PO TID #15 tablet 04/17/17 Allergies Allergy/AdvReac Type Severity Reaction Status Date / Time latex Allergy Unknown BLISTERS Verified 10/27/16 17:43 morphine Allergy Unknown RASH Verified 10/27/16 17:43 nitrofurantoin Allergy Unknown MUSCLE PAIN Verified 10/27/16 17:43 nitrofurantoin Allergy Unknown MUSCLE PAIN Verified 10/27/16 17:43 macrocrystalline dexamethasone [From Decadron] Allergy BEHAVIORAL Verified 10/27/16 17:43 CHANGES dexamethasone sod phosphate Allergy BEHAVIORAL Verified 10/27/16 17:43 [From Decadron] CHANGES duloxetine HCl Allergy BEHAVIORAL Verified 10/27/16 17:43 [From Cymbalta] CHANGES levofloxacin [From Levaquin] Allergy RASH Verified 10/27/16 17:43 metoclopramide HCl AdvReac HYPERSENSIT Verified 10/27/16 17:43 [From Reglan] IVITY Travel Screening - Travel/Exposure Within Last 30 Days Have you traveled within the last 30 days?: No Review of Systems Constitutional: Denies: Chills, Fever, Malaise, Night sweats Eyes: Denies: Eye discharge, Eye pain ENT: Reports: Other ("laryngitis for 5-6 weeks"). Denies: Congestion, Ear pain , Epistaxis Respiratory: Denies: Cough, Dyspnea Cardiovascular: Denies: Chest pain, Dyspnea on exertion Endocrine: Denies: Fatigue, Heat or cold intolerance Gastrointestinal: Denies: Abdominal pain, Nausea, Vomiting Genitourinary: Denies: Incontinence, Retention Musculoskeletal: Denies: Arthralgia, Back pain, Gout, Joint swelling Skin: Denies: Bruising, Change in color Neurological: Denies: Abnormal gait, Confusion, Headache, Seizure Psychiatric: Denies: Anxiety Hematological/Lymphatic: Denies: Anemia, Blood Clots Past Medical History - SOCIAL HISTORY Smoking Status: Never smoker Alcohol Use: None Drug Use: None - RESPIRATORY Hx Respiratory Disorders: Yes Hx Asthma: Yes Comment:: "vocal coord disorder" - CARDIOVASCULAR Hx Cardio Disorders: No - NEURO Hx Neuro Disorders: Yes Hx Seizures: Yes (2013) - GI Hx GI Disorders: Yes Hx Reflux: Yes Comment:: gastric bypass - Hx Genitourinary Disorders: No - ENDOCRINE Hx Endocrine Disorders: No - MUSCULOSKELETAL Hx Musculoskeletal Disorders: Yes Hx Arthritis: Yes Hx Fibromyalgia: Yes - PSYCH Hx Psych Problems: Yes Hx Anxiety: Yes - HEMATOLOGY/ONCOLOGY Hx Hematology/Oncology Disorders: No Family Medical History Any Significant Family History?: Yes Hx Cancer: Mother Hx Heart Disease: Grandparents Physical Exam - General General Appearance: Alert, Oriented x3, Cooperative, No acute distress, Other ( pacing room #2 due to her RLS symptoms, hoarse voice on examination) Limitations: No limitations - Head Head exam: Atraumatic, Normocephalic, Normal inspection Head exam detail: negative: Abrasion, Contusion, Hernández's sign, General tenderness, Hematoma, Laceration - Eye Eye exam: Normal appearance. negative: Conjunctival injection, Periorbital swelling, Periorbital tenderness, Scleral icterus - ENT Ear exam: negative: Auricular hematoma, Auricular trauma Nasal Exam: negative: Active bleeding, Discharge, Dried blood, Foreign body Mouth exam: negative: Drooling, Laceration, Muffled voice, Tongue elevation Throat exam: Normal inspection. negative: Tonsillar erythema, Tonsillomegaly, Tonsillar exudate, R peritonsillar mass, L peritonsillar mass - Neck Neck exam: Normal inspection. negative: Meningismus, Tenderness - Respiratory Respiratory exam: Normal lung sounds bilaterally. negative: Rales, Respiratory distress, Rhonchi, Stridor - Cardiovascular Cardiovascular Exam: Regular rate, Normal rhythm, Normal heart sounds - GI/Abdominal GI/Abdominal exam: Soft. negative: Rebound, Rigid, Tenderness - Rectal Rectal exam: Deferred - exam: Deferred - Extremities Extremities exam: negative: Calf tenderness, Pedal edema, Tenderness - Back Back exam: Denies: CVA tenderness (R), CVA tenderness (L) - Neurological Neurological exam: Alert, Normal gait, Oriented X3 - Psychiatric Psychiatric exam: Normal affect, Normal mood - Skin Skin exam: Normal color. negative: Abrasion Type of lesion: negative: abrasion Course Vital Signs 04/17/17 22:06 Temperature 97.6 F Pulse Rate 113 H Respiratory 18 Rate Blood Pressure 114/78 Pulse Ox 97 - Reevaluation(s) Reevaluation #1: 04/17/17 23:06 Patient was counseled re: follow-up with Dr. Kat for possible ENT referral for her chronic laryngitis symptoms, will refill her rtequip for 5 days as well. Patient does not appear to have an acute process involving the pharynx on examination, and appears stable for discharge at this time. Disposition Disposition: Discharge Clinical Impression: Restless leg syndrome, Chronic laryngitis Disposition: Home, Self-Care Condition: (2) Stable Instructions: Restless Legs Syndrome (ED) Additional Instructions: Return to ED if your symptoms worsen or if you have any concerns. Requip as prescribed. Follow-up with Dr. Kat for both a refill of your requip and for further evaluation of your chronic laryngitis symptoms. Prescriptions: Ropinirole HCl [Requip] 4 mg PO TID #15 tablet Forms: Patient Portal Access Time of Disposition: 23:01 Quality - Quality Measures Quality Measures: N/A - Blood Pressure Screening Does Patient Have Any of the Following: No Blood Pressure Classification: Normal BP Reading Systolic Measurement: 114 Diastolic Measurement: 78 Screening for High Blood Pressure: < Normal BP, F/U Not Required > [G8783]
== END 2017-04-17 23:05 | disposition home or self-care (01) ==
LOC: ER 22:00
DX: J37.0 Chronic laryngitis (principal); G25.81 Restless legs syndrome
CPT/HCPCS: 99282

== ENCOUNTER 2017-05-08 22:53 | Emergency (ER) | payer OTHER, MEDICAID ==
--- NOTE | 2017-05-08 23:18 | Emergency Department Record ---
History of Present Illness - General Chief complaint: Lower Extremity Pain Stated complaint: RESTLESS LEGS Time Seen by Provider: 05/08/17 22:59 Source: Patient Mode of Arrival: Ambulatory Limitations: No limitations - History of Present Illness Initial comments: 46 yo female presents to ED for evaluation of her restless legs. Patient reports that she has been unable to refill her Requip prescription due to the co -pay associated with her PCP. Patient reports that she has been out of her medication for 48 hours. MD Complaint: Other Onset/Timin -: Days(s) Location: Left, Right, Lower Leg Radiation: None Consistency: Constant Improves with: Nothing Worsens with: Nothing Associated Symptoms: Denies other symptoms - Related Data Previous Rx's Medication Instructions Recorded Ropinirole HCl [Requip] 4 mg PO TID #15 tablet 04/17/17 Ropinirole HCl [Requip] 4 mg PO TID #15 tablet 05/08/17 Allergies Allergy/AdvReac Type Severity Reaction Status Date / Time latex Allergy Unknown BLISTERS Verified 10/27/16 17:43 morphine Allergy Unknown RASH Verified 10/27/16 17:43 nitrofurantoin Allergy Unknown MUSCLE PAIN Verified 10/27/16 17:43 nitrofurantoin Allergy Unknown MUSCLE PAIN Verified 10/27/16 17:43 macrocrystalline dexamethasone [From Decadron] Allergy BEHAVIORAL Verified 10/27/16 17:43 CHANGES dexamethasone sod phosphate Allergy BEHAVIORAL Verified 10/27/16 17:43 [From Decadron] CHANGES duloxetine HCl Allergy BEHAVIORAL Verified 10/27/16 17:43 [From Cymbalta] CHANGES levofloxacin [From Levaquin] Allergy RASH Verified 10/27/16 17:43 metoclopramide HCl AdvReac HYPERSENSIT Verified 10/27/16 17:43 [From Reglan] IVITY Travel Screening - Travel/Exposure Within Last 30 Days Have you traveled within the last 30 days?: No - Travel Symptoms Symptom Screening: None Review of Systems Constitutional: Denies: Chills, Fever, Malaise, Night sweats Eyes: Denies: Eye discharge, Eye pain ENT: Denies: Congestion, Ear pain, Epistaxis Respiratory: Denies: Cough, Dyspnea Cardiovascular: Denies: Chest pain, Dyspnea on exertion Endocrine: Denies: Fatigue, Heat or cold intolerance Gastrointestinal: Denies: Abdominal pain, Nausea, Vomiting Genitourinary: Denies: Incontinence, Retention Musculoskeletal: Denies: Arthralgia, Back pain, Gout, Joint swelling Skin: Denies: Bruising, Change in color Neurological: Denies: Abnormal gait, Confusion, Headache, Seizure Psychiatric: Denies: Anxiety Hematological/Lymphatic: Denies: Anemia, Blood Clots Past Medical History - SOCIAL HISTORY Smoking Status: Never smoker - RESPIRATORY Hx Respiratory Disorders: Yes Hx Asthma: Yes Comment:: "vocal coord disorder" - CARDIOVASCULAR Hx Cardio Disorders: No - NEURO Hx Neuro Disorders: Yes Hx Seizures: Yes (2013) - GI Hx GI Disorders: Yes Hx Reflux: Yes Comment:: gastric bypass - Hx Genitourinary Disorders: No - ENDOCRINE Hx Endocrine Disorders: No - MUSCULOSKELETAL Hx Musculoskeletal Disorders: Yes Hx Arthritis: Yes Hx Fibromyalgia: Yes Comment:: RLS - PSYCH Hx Psych Problems: Yes Hx Anxiety: Yes - HEMATOLOGY/ONCOLOGY Hx Hematology/Oncology Disorders: No Family Medical History Any Significant Family History?: Yes Hx Cancer: Mother Hx Heart Disease: Grandparents Physical Exam - General General Appearance: Alert, Oriented x3, Cooperative, Moderate distress, Anxious Limitations: No limitations - Head Head exam: Atraumatic, Normocephalic, Normal inspection Head exam detail: negative: Abrasion, Contusion, Hernández's sign, General tenderness, Hematoma, Laceration - Eye Eye exam: Normal appearance. negative: Conjunctival injection, Periorbital swelling, Periorbital tenderness, Scleral icterus - ENT Ear exam: negative: Auricular hematoma, Auricular trauma Nasal Exam: negative: Active bleeding, Discharge, Dried blood, Foreign body Mouth exam: negative: Drooling, Laceration, Muffled voice, Tongue elevation - Neck Neck exam: Normal inspection. negative: Meningismus, Tenderness - Respiratory Respiratory exam: Normal lung sounds bilaterally. negative: Rales, Respiratory distress, Rhonchi, Stridor - Cardiovascular Cardiovascular Exam: Regular rate, Normal rhythm, Normal heart sounds - GI/Abdominal GI/Abdominal exam: Soft. negative: Rebound, Rigid, Tenderness - Rectal Rectal exam: Deferred - exam: Deferred - Extremities Extremities exam: negative: Calf tenderness, Pedal edema, Tenderness - Back Back exam: Denies: CVA tenderness (R), CVA tenderness (L) - Neurological Neurological exam: Alert, Normal gait, Oriented X3 - Psychiatric Psychiatric exam: Normal affect, Normal mood - Skin Skin exam: Normal color. negative: Abrasion Type of lesion: negative: abrasion Course Vital Signs 05/08/17 23:05 Temperature 98.6 F Pulse Rate 98 H Respiratory 20 Rate Blood Pressure 103/84 Pulse Ox 98 - Reevaluation(s) Reevaluation #1: 05/08/17 23:21 Patient appears stable for discharge with a refill for her Requip with instructions for follow-up. Disposition Disposition: Discharge Clinical Impression: Restless leg syndrome Disposition: Home, Self-Care Condition: (2) Stable Instructions: Restless Legs Syndrome (ED) Additional Instructions: Return to ED if your symptoms worsen or if you have any concerns. Requip as directed. Follow-up with your family doctor in 3-5 days as directed. Prescriptions: Ropinirole HCl [Requip] 4 mg PO TID #15 tablet Forms: Patient Portal Access Time of Disposition: 23:18 Quality - Quality Measures Quality Measures: N/A - Blood Pressure Screening Does Patient Have Any of the Following: No Blood Pressure Classification: Pre-Hypertensive BP Reading Systolic Measurement: 103 Diastolic Measurement: 84 Screening for High Blood Pressure: < Pre-Hypertensive BP, F/U Documented > [ G8950] Pre-Hypertensive Follow-up Interventions: Referral to alternative/primary care provider.
[2017-05-08] MEDS ORDERED: ROPINIROLE HCL 1 MG TABLET PO SCH (23:30)
== END 2017-05-08 23:35 | disposition home or self-care (01) ==
LOC: ER 22:53
DX: G25.81 Restless legs syndrome (principal); M79.661 Pain in right lower leg
CPT/HCPCS: 99282

== ENCOUNTER 2017-06-22 17:23 | Emergency (ER) | payer OTHER, MEDICAID ==
[2017-06-22] MEDS: HYDROMORPHONE HCL 1 MG/ML SYRINGE IM ONE ×2 (19:29→20:44)
[2017-06-22] MEDS: PROMETHAZINE HCL 25 MG/ML VIAL IM ONE (19:29)
--- NOTE | 2017-06-22 20:18 | Emergency Department Record ---
History of Present Illness - General Chief complaint: Dental Stated complaint: RT SIDE TOOTH PAIN Time Seen by Provider: 06/22/17 19:08 Source: Patient Mode of Arrival: Ambulatory Limitations: No limitations - History of Present Illness Initial comments: pt has had a bad tooth for 2-3 mos that she has not seen a dentist for. the pain has become unbearable and she fears ithas spread as it now hurts behind her ear. MD complaint: Ear pain, Tooth pain Onset/Timin -: Month(s) Severity: Moderate Severity scale (1-10): 10 Quality: Aching Consistency: Constant Improves with: None Worsens with: None Context- Dental: History of dental caries - Related Data Previous Rx's Medication Instructions Recorded Ropinirole HCl [Requip] 4 mg PO TID #15 tablet 04/17/17 Ropinirole HCl [Requip] 4 mg PO TID #15 tablet 05/08/17 Cephalexin [Keflex] 500 mg PO TID #20 cap 06/22/17 Hydrocodone/Acetaminophen [[place] 1 each PO Q6HR #14 tablet 06/22/17 5-325 Tablet] Allergies Allergy/AdvReac Type Severity Reaction Status Date / Time latex Allergy Unknown BLISTERS Verified 06/22/17 18:03 morphine Allergy Unknown RASH Verified 06/22/17 18:03 nitrofurantoin Allergy Unknown MUSCLE PAIN Verified 06/22/17 18:03 nitrofurantoin Allergy Unknown MUSCLE PAIN Verified 06/22/17 18:03 macrocrystalline dexamethasone [From Decadron] Allergy BEHAVIORAL Verified 06/22/17 18:03 CHANGES dexamethasone sod phosphate Allergy BEHAVIORAL Verified 06/22/17 18:03 [From Decadron] CHANGES duloxetine HCl Allergy BEHAVIORAL Verified 06/22/17 18:03 [From Cymbalta] CHANGES levofloxacin [From Levaquin] Allergy RASH Verified 06/22/17 18:03 metoclopramide HCl AdvReac HYPERSENSIT Verified 06/22/17 18:03 [From Reglan] IVITY Travel Screening - Travel/Exposure Within Last 30 Days Have you traveled within the last 30 days?: No - Travel/Exposure Within Last Year Have you traveled outside the [place] in the last year?: No - Additonal Travel Details Have you been exposed to anyone with a communicable illness?: No - Travel Symptoms Symptom Screening: None Review of Systems Reviewed: No additional complaints except as noted below Constitutional: Reports: As per HPI. Denies: Chills, Fever, Malaise, Night sweats, Weakness, Weight change Eyes: Reports: As per HPI. Denies: Eye discharge, Eye pain, Photophobia, Vision change ENT: Reports: As per HPI, Dental pain, Ear pain. Denies: Congestion, Epistaxis , Hearing loss, Throat pain Respiratory: Reports: As per HPI. Denies: Cough, Dyspnea, Hemoptysis, Stridor, Wheezes Cardiovascular: Reports: As per HPI. Denies: Arrhythmia, Chest pain, Dyspnea on exertion, Edema, Murmurs, Orthopnea, Palpitations, Paroxysmal nocturnal dyspnea, Rheumatic Fever, Syncope Endocrine: Reports: As per HPI. Denies: Fatigue, Heat or cold intolerance, Polydipsia, Polyuria Gastrointestinal: Reports: As per HPI. Denies: Abdominal pain, Constipation, Diarrhea, Hematemesis, Hematochezia, Melena, Nausea, Vomiting Genitourinary: Reports: As per HPI. Denies: Abnormal menses, Discharge, Dyspareunia, Dysuria, Frequency, Hematuria, Incontinence, Retention, Urgency Musculoskeletal: Reports: As per HPI. Denies: Arthralgia, Back pain, Gout, Joint swelling, Myalgia, Neck pain Skin: Reports: As per HPI. Denies: Bruising, Change in color, Change in hair/ nails, Lesions, Pruritus, Rash Neurological: Reports: As per HPI. Denies: Abnormal gait, Confusion, Headache, Numbness, Paresthesias, Seizure, Tingling, Tremors, Vertigo, Weakness Psychiatric: Reports: As per HPI. Denies: Anxiety, Auditory hallucinations, Depression, Homicidal thoughts, Suicidal thoughts, Visual hallucinations Hematological/Lymphatic: Reports: As per HPI. Denies: Anemia, Blood Clots, Easy bleeding, Easy bruising, Swollen glands Past Medical History - SOCIAL HISTORY Smoking Status: Never smoker Alcohol Use: Occasional Drug Use: None - RESPIRATORY Hx Respiratory Disorders: Yes Hx Asthma: Yes Comment:: "vocal coord disorder" - CARDIOVASCULAR Hx Cardio Disorders: No - NEURO Hx Neuro Disorders: Yes Hx Seizures: Yes (2013) - GI Hx GI Disorders: Yes Hx Reflux: Yes Comment:: gastric bypass - Hx Genitourinary Disorders: No - ENDOCRINE Hx Endocrine Disorders: No - MUSCULOSKELETAL Hx Musculoskeletal Disorders: Yes Hx Arthritis: Yes Hx Fibromyalgia: Yes Comment:: RLS - PSYCH Hx Psych Problems: Yes Hx Anxiety: Yes - HEMATOLOGY/ONCOLOGY Hx Hematology/Oncology Disorders: No Family Medical History Any Significant Family History?: Yes Hx Cancer: Mother Hx Heart Disease: Grandparents Physical Exam - General General Appearance: Alert, Oriented x3, Cooperative, Mild distress - Head Head exam: Normal inspection - Eye Eye exam: Normal appearance, PERRL, EOMI Pupils: Normal accommodation - ENT ENT exam: Normal exam, Mucous membranes moist, Normal external ear exam, Normal orophraynx, TM's normal bilaterally Ear exam: Normal external inspection, Other (tender over mastoid). negative: External canal tenderness Nasal Exam: Normal inspection. negative: Discharge, Sinus tenderness Mouth exam: Normal external inspection, Tongue normal Teeth exam: Dental caries, Dental tenderness # Throat exam: Normal inspection. negative: Tonsillar erythema, Tonsillar exudate - Neck Neck exam: Normal inspection, Full ROM. negative: Tenderness - Respiratory Respiratory exam: Normal lung sounds bilaterally. negative: Respiratory distress - Cardiovascular Cardiovascular Exam: Normal rhythm, Normal heart sounds, Tachycardia - GI/Abdominal GI/Abdominal exam: Soft, Normal bowel sounds. negative: Tenderness - Rectal Rectal exam: Deferred - exam: Deferred - Extremities Extremities exam: Normal inspection, Full ROM, Normal capillary refill. negative: Tenderness - Back Back exam: Reports: Normal inspection, Full ROM. Denies: Muscle spasm, Rash noted, Tenderness - Neurological Neurological exam: Alert, CN II-XII intact, Normal gait, Oriented X3 - Psychiatric Psychiatric exam: Normal affect, Normal mood - Skin Skin exam: Dry, Intact, Normal color, Warm Course Vital Signs 06/22/17 06/22/17 17:55 19:26 Temperature 99.0 F Pulse Rate 121 H Pulse Rate [ 107 H Pulse Ox Probe] Respiratory 20 22 Rate Blood Pressure 131/79 Blood Pressure 125/65 [Left Arm] Pulse Ox 96 99 Disposition Disposition: Discharge Clinical Impression: Toothache Disposition: Home, Self-Care Condition: (1) Good Instructions: Dental Abscess (ED), Toothache (ED) Additional Instructions: follow up with dentist KIERSTEN. return sooner if worse Prescriptions: Hydrocodone/Acetaminophen [[place] 5-325 Tablet] 1 each PO Q6HR #14 tablet Cephalexin [Keflex] 500 mg PO TID #20 cap Forms: Patient Portal Access Quality - Quality Measures Quality Measures: N/A - Blood Pressure Screening Does Patient Have Any of the Following: No Blood Pressure Classification: Pre-Hypertensive BP Reading Systolic Measurement: 131 Diastolic Measurement: 79 Screening for High Blood Pressure: < Pre-Hypertensive BP, F/U Documented > [ G8950] Pre-Hypertensive Follow-up Interventions: Follow-up with rescreen every year.
[2017-06-22] MEDS: KETOROLAC 30 MG/ML VIAL IM ONE (20:43)
[2017-06-22] MEDS: CEPHALEXIN 500 MG CAPSULE PO STA (20:45)
--- NOTE | 2017-06-23 19:50 | CT SCAN REPORT ---
EXAM: CT SCAN MAXILLOFACIAL WO CONTRAST HISTORY: RIGHT-SIDED DENTAL PAIN EXTENDING SUPERIORLY INTO RIGHT EAR. PAIN FOR THREE MONTHS WITH WORSENING IN LAST FOUR DAYS. TECHNIQUE: Thin-collimation helical CT examination of the facial bones is performed in the axial plane without intravenous contrast. Coronal and sagittal reformatted images are generated and reviewed. COMPARISON: Radiographic examination of the neck soft tissues dated 03/28/2017. FINDINGS: The osseous structures are normally mineralized. Dental caries are scattered throughout several teeth. The right maxillary premolars and the left canine are absent. No definite periapical lucency identified to suggest dental abscess. The paranasal sinuses are well developed. There is minimal mucosal thickening involving the floors of the maxillary sinuses. The paranasal sinuses are otherwise well aerated. The orbits as visualized are unremarkable. The parotid glands and submandibular glands, to the extent visualized, are symmetric and normal in appearance. A few nonenlarged suprahyoid lymph nodes are noted bilaterally. There is likely a small intraparotid lymph node on the right. No peripheral soft tissue mass, edema, nor fluid collection is seen. IMPRESSION: 1. MULTIPLE DENTAL CARIES BUT WITHOUT CT EVIDENCE OF ABSCESS. 2. MINIMAL MUCOSAL THICKENING WITHIN THE MAXILLARY SINUS FLOORS. 3. OTHERWISE, NEGATIVE. JOB NUMBER: [id number] MTDD
== END 2017-06-22 21:05 | disposition home or self-care (01) ==
LOC: ER 17:23
DX: K08.89 Other specified disorders of teeth and supporting structures (principal); K02.9 Dental caries, unspecified
CPT/HCPCS: 70486; 96372; 99283; 99284; J1170; J1885; J2550

== ENCOUNTER 2017-07-25 23:47 | Emergency (ER) | payer OTHER, MEDICAID ==
[2017-07-25] MEDS ORDERED: PREDNISONE 20 MG TAB PO ONE (23:58)
--- NOTE | 2017-07-26 00:03 | Emergency Department Record ---
History of Present Illness - General Chief Complaint: Cough Stated Complaint: COUGH,LENZ,BACK PAIN Time Seen by Provider: 07/25/17 23:57 Source: Patient Mode of Arrival: Ambulatory Limitations: No limitations - History of Present Illness Initial Comments: 47 yo female presents to ED for evaluation of cough, congestion, and wheezing symptoms for the past 3-4 days. Patient denies fever symptoms, does report recent ill contacts (mother). Patient does have nebulizer at home that she has not been using. MD Complaint: Cough, Nasal congestion, Sore throat Onset/Timin -: Days(s) Severity: Moderate Severity scale (1-10): 7 Consistency: Constant Improves With: Nothing Worsens With: Nothing Associated Symptoms: Headache, Myalgias - Related Data Previous Rx's Medication Instructions Recorded Ropinirole HCl [Requip] 4 mg PO TID #15 tablet 04/17/17 Ropinirole HCl [Requip] 4 mg PO TID #15 tablet 05/08/17 Benzonatate [Tessalon] 2 cap PO Q8H PRN #30 cap 07/26/17 Prednisone [Prednisone 20Mg] 20 mg PO BID #10 tab 07/26/17 Allergies Allergy/AdvReac Type Severity Reaction Status Date / Time latex Allergy Unknown BLISTERS Verified 06/22/17 18:03 morphine Allergy Unknown RASH Verified 06/22/17 18:03 nitrofurantoin Allergy Unknown MUSCLE PAIN Verified 06/22/17 18:03 nitrofurantoin Allergy Unknown MUSCLE PAIN Verified 06/22/17 18:03 macrocrystalline dexamethasone [From Decadron] Allergy BEHAVIORAL Verified 06/22/17 18:03 CHANGES dexamethasone sod phosphate Allergy BEHAVIORAL Verified 06/22/17 18:03 [From Decadron] CHANGES duloxetine HCl Allergy BEHAVIORAL Verified 06/22/17 18:03 [From Cymbalta] CHANGES levofloxacin [From Levaquin] Allergy RASH Verified 06/22/17 18:03 metoclopramide HCl AdvReac HYPERSENSIT Verified 06/22/17 18:03 [From Reglan] IVITY Travel Screening - Travel/Exposure Within Last 30 Days Have you traveled within the last 30 days?: No - Travel Symptoms Symptom Screening: Headache, Vomiting Review of Systems Constitutional: Reports: Malaise, Weakness. Denies: Chills, Fever, Night sweats Eyes: Reports: Eye discharge. Denies: Eye pain ENT: Reports: Congestion. Denies: Ear pain, Epistaxis Respiratory: Reports: Cough. Denies: Dyspnea Cardiovascular: Denies: Chest pain, Dyspnea on exertion Endocrine: Denies: Fatigue, Heat or cold intolerance Gastrointestinal: Denies: Abdominal pain, Nausea, Vomiting Genitourinary: Denies: Incontinence, Retention Musculoskeletal: Reports: Back pain. Denies: Gout, Joint swelling Skin: Denies: Bruising, Change in color Neurological: Reports: Headache. Denies: Abnormal gait, Confusion, Seizure Psychiatric: Denies: Anxiety Hematological/Lymphatic: Denies: Anemia, Blood Clots Past Medical History - SOCIAL HISTORY Smoking Status: Never smoker Drug Use: None - RESPIRATORY Hx Respiratory Disorders: Yes Hx Asthma: Yes Comment:: "vocal coord disorder" - CARDIOVASCULAR Hx Cardio Disorders: No - NEURO Hx Neuro Disorders: Yes Hx Seizures: Yes (2013) - GI Hx GI Disorders: Yes Hx Reflux: Yes Comment:: gastric bypass - Hx Genitourinary Disorders: No - ENDOCRINE Hx Endocrine Disorders: No - MUSCULOSKELETAL Hx Musculoskeletal Disorders: Yes Hx Arthritis: Yes Hx Fibromyalgia: Yes Comment:: RLS - PSYCH Hx Psych Problems: Yes Hx Anxiety: Yes - HEMATOLOGY/ONCOLOGY Hx Hematology/Oncology Disorders: No Family Medical History Hx Cancer: Mother Hx Heart Disease: Grandparents Physical Exam - General General Appearance: Alert, Oriented x3, Cooperative, Mild distress Limitations: No limitations - Head Head exam: Atraumatic, Normocephalic, Normal inspection Head exam detail: negative: Abrasion, Contusion, Hernández's sign, General tenderness, Hematoma, Laceration - Eye Eye exam: Normal appearance. negative: Conjunctival injection, Periorbital swelling, Periorbital tenderness, Scleral icterus - ENT Ear exam: negative: Auricular hematoma, Auricular trauma Nasal Exam: negative: Active bleeding, Discharge, Dried blood, Foreign body Mouth exam: negative: Drooling, Laceration, Muffled voice, Tongue elevation - Neck Neck exam: Normal inspection. negative: Meningismus, Tenderness - Respiratory Respiratory exam: Wheezes (mild wheezes bilaterally). negative: Rales, Respiratory distress, Rhonchi, Stridor - Cardiovascular Cardiovascular Exam: Normal rhythm, Normal heart sounds, Tachycardia - GI/Abdominal GI/Abdominal exam: Soft. negative: Rebound, Rigid, Tenderness - Rectal Rectal exam: Deferred - exam: Deferred - Extremities Extremities exam: Normal inspection. negative: Calf tenderness, Pedal edema, Tenderness - Back Back exam: Denies: CVA tenderness (R), CVA tenderness (L) - Neurological Neurological exam: Alert, Normal gait, Oriented X3 - Psychiatric Psychiatric exam: Normal affect, Normal mood - Skin Skin exam: Normal color. negative: Abrasion Type of lesion: negative: abrasion Course Vital Signs 07/25/17 23:54 Temperature 98.7 F Pulse Rate [ 109 H Pulse Ox Probe] Respiratory 20 Rate Blood Pressure 143/88 [Left Arm] Pulse Ox 97 - Reevaluation(s) Reevaluation #1: 07/26/17 00:12 Influenza: Negative Patient reassessed, reports improvement in her respiratory symptoms. Will treat for probable bronchitis with Prednisone and Tessalon as directed. Patient appears stable for discharge at this time. Disposition Disposition: Discharge Clinical Impression: URI (upper respiratory infection) Qualifiers: URI type: unspecified URI Qualified Code(s): J06.9 - Acute upper respiratory infection, unspecified Disposition: Home, Self-Care Condition: (2) Stable Instructions: Upper Respiratory Infection (ED) Additional Instructions: Return to ED if your symptoms worsen or if you have any concerns. Tessalon and Prednisone as directed. Follow-up with your family doctor in 3-5 days as directed. Prescriptions: Benzonatate [Tessalon] 2 cap PO Q8H PRN #30 cap PRN Reason: Cough Prednisone [Prednisone 20Mg] 20 mg PO BID #10 tab Forms: Patient Portal Access Time of Disposition: 00:03 Quality - Quality Measures Quality Measures: N/A - Blood Pressure Screening Does Patient Have Any of the Following: No Blood Pressure Classification: Pre-Hypertensive BP Reading Systolic Measurement: 143 Diastolic Measurement: 88 Screening for High Blood Pressure: < Pre-Hypertensive BP, F/U Documented > [ G8950] Pre-Hypertensive Follow-up Interventions: Referral to alternative/primary care provider.
[2017-07-26 00:10] LABS: INFLUENZA A NEGATIVE (NEGATIVE); INFLUENZA B NEGATIVE (NEGATIVE)
[2017-07-26] MEDS ORDERED: BENZONATATE 100 MG CAPSULE PO ONE (00:18)
[2017-07-26] MEDS ORDERED: IPRATROPIUM/ALBUTEROL (0.5MG/3MG) NEB INH SCH (10:00)
== END 2017-07-26 00:25 | disposition home or self-care (01) ==
LOC: ER 23:47
DX: J06.9 Acute upper respiratory infection, unspecified (principal); R05 Cough; R51 Headache
CPT/HCPCS: 99283 ×2; 87400; 94640; J7512

== ENCOUNTER 2017-09-16 05:41 | Emergency (ER) | payer OTHER, MEDICAID ==
[2017-09-16 06:09] LABS: HEMATOCRIT 33.5 % (35.0-47.0); HEMOGLOBIN 9.7 gm/dl (11.6-16.0); MEAN CELL VOLUME 86.6 fl (81-97); MEAN PLATELET VOLUME 8.7 fl (7.4-10.4); PLATELET COUNT 349 K/uL (130-400); RED BLOOD COUNT 3.87 M/uL (3.80-5.40); RED CELL DISTRIBUTION WIDTH 19.5 % (11.5-14.5); WHITE BLOOD COUNT W/O DIFF 3.9 K/uL (4.2-12.2)
[2017-09-16 06:18] LABS: BLOOD UREA NITROGEN 7 mg/dL (6-20); CREATININE 0.7 mg/dL (0.5-0.9); EST GLOMERULAR FILTRATION RATE > 60 mL/min
[2017-09-16 06:19] LABS: TOTAL PROTEIN 7.6 g/dL (6.6-8.7)
[2017-09-16 06:21] LABS: GLUCOSE,RANDOM 125 mg/dL (74-109)
[2017-09-16 06:23] LABS: ALB/GLOB RATIO 1.2 (1.1-1.8); ALBUMIN 4.1 g/dL (4.0-5.0); ALT/SGPT 17 U/L (<33); AST/SGOT 22 U/L (10.0-35.0)
[2017-09-16 06:24] LABS: ALKALINE PHOSPHATASE 120 U/L (35-104)
[2017-09-16 06:26] LABS: NTpro B-NATRIURETIC PEPTIDE 34.75 pg/mL (<125)
[2017-09-16 06:29] LABS: PLATELET ESTIMATE NORMAL (NORMAL)
--- NOTE | 2017-09-16 06:57 | Emergency Department Record ---
History of Present Illness - General Chief complaint: Swelling of legs Stated complaint: ANKLE SWELLING Time Seen by Provider: 09/16/17 05:45 Source: Patient Mode of Arrival: Ambulatory Limitations: No limitations - History of Present Illness Initial comments: pt c/o bilateral leg swelling. legs are tender from swelling. legs are equally swollen. no sob, no cp MD Complaint: Extremity pain, Extremity swelling Onset/Timin -: Days(s) Location: Bilateral Severity scale (1-10): 4 Quality: Aching Consistency: Constant Improves with: Nothing Worsens with: Walking, Weight bearing Associated Symptoms: Denies other symptoms - Related Data Previous Rx's Medication Instructions Recorded Ropinirole HCl [Requip] 4 mg PO TID #15 tablet 04/17/17 Ropinirole HCl [Requip] 4 mg PO TID #15 tablet 05/08/17 Benzonatate [Tessalon] 2 cap PO Q8H PRN #30 cap 07/26/17 Prednisone [Prednisone 20Mg] 20 mg PO BID #10 tab 07/26/17 Allergies Allergy/AdvReac Type Severity Reaction Status Date / Time latex Allergy Unknown BLISTERS Verified 06/22/17 18:03 morphine Allergy Unknown RASH Verified 06/22/17 18:03 nitrofurantoin Allergy Unknown MUSCLE PAIN Verified 06/22/17 18:03 nitrofurantoin Allergy Unknown MUSCLE PAIN Verified 06/22/17 18:03 macrocrystalline dexamethasone [From Decadron] Allergy BEHAVIORAL Verified 06/22/17 18:03 CHANGES dexamethasone sod phosphate Allergy BEHAVIORAL Verified 06/22/17 18:03 [From Decadron] CHANGES duloxetine HCl Allergy BEHAVIORAL Verified 06/22/17 18:03 [From Cymbalta] CHANGES levofloxacin [From Levaquin] Allergy RASH Verified 06/22/17 18:03 metoclopramide HCl AdvReac HYPERSENSIT Verified 06/22/17 18:03 [From Reglan] IVITY Travel Screening - Travel/Exposure Within Last 30 Days Have you traveled within the last 30 days?: No - Travel/Exposure Within Last Year Have you traveled outside the [place] in the last year?: No - Additonal Travel Details Have you been exposed to anyone with a communicable illness?: No - Travel Symptoms Symptom Screening: None Review of Systems Reviewed: No additional complaints except as noted below Constitutional: Reports: As per HPI. Denies: Chills, Fever, Malaise, Night sweats, Weakness, Weight change Eyes: Reports: As per HPI. Denies: Eye discharge, Eye pain, Photophobia, Vision change ENT: Reports: As per HPI. Denies: Congestion, Dental pain, Ear pain, Epistaxis , Hearing loss, Throat pain Respiratory: Reports: As per HPI. Denies: Cough, Dyspnea, Hemoptysis, Stridor, Wheezes Cardiovascular: Reports: As per HPI. Denies: Arrhythmia, Chest pain, Dyspnea on exertion, Edema, Murmurs, Orthopnea, Palpitations, Paroxysmal nocturnal dyspnea, Rheumatic Fever, Syncope Endocrine: Reports: As per HPI. Denies: Fatigue, Heat or cold intolerance, Polydipsia, Polyuria Gastrointestinal: Reports: As per HPI. Denies: Abdominal pain, Constipation, Diarrhea, Hematemesis, Hematochezia, Melena, Nausea, Vomiting Genitourinary: Reports: As per HPI. Denies: Abnormal menses, Discharge, Dyspareunia, Dysuria, Frequency, Hematuria, Incontinence, Retention, Urgency Musculoskeletal: Reports: As per HPI. Denies: Arthralgia, Back pain, Gout, Joint swelling, Myalgia, Neck pain Skin: Reports: As per HPI. Denies: Bruising, Change in color, Change in hair/ nails, Lesions, Pruritus, Rash Neurological: Reports: As per HPI. Denies: Abnormal gait, Confusion, Headache, Numbness, Paresthesias, Seizure, Tingling, Tremors, Vertigo, Weakness Psychiatric: Reports: As per HPI. Denies: Anxiety, Auditory hallucinations, Depression, Homicidal thoughts, Suicidal thoughts, Visual hallucinations Hematological/Lymphatic: Reports: As per HPI. Denies: Anemia, Blood Clots, Easy bleeding, Easy bruising, Swollen glands Past Medical History - SOCIAL HISTORY Smoking Status: Never smoker Alcohol Use: None Drug Use: None - RESPIRATORY Hx Respiratory Disorders: Yes Hx Asthma: Yes Comment:: "vocal coord disorder" - CARDIOVASCULAR Hx Cardio Disorders: No - NEURO Hx Neuro Disorders: Yes Hx Seizures: Yes (2013) - GI Hx GI Disorders: Yes Hx Reflux: Yes Comment:: gastric bypass - Hx Genitourinary Disorders: No - ENDOCRINE Hx Endocrine Disorders: No - MUSCULOSKELETAL Hx Musculoskeletal Disorders: Yes Hx Arthritis: Yes Hx Fibromyalgia: Yes Comment:: RLS - PSYCH Hx Psych Problems: Yes Hx Anxiety: Yes - HEMATOLOGY/ONCOLOGY Hx Hematology/Oncology Disorders: No Family Medical History Any Significant Family History?: No Hx Cancer: Mother Hx Heart Disease: Grandparents Physical Exam - General General Appearance: Alert, Oriented x3, Cooperative, Mild distress - Head Head exam: Normal inspection - Eye Eye exam: Normal appearance, PERRL, EOMI Pupils: Normal accommodation - ENT ENT exam: Normal exam, Mucous membranes moist, Normal external ear exam, Normal orophraynx Ear exam: Normal external inspection. negative: External canal tenderness Nasal Exam: Normal inspection. negative: Discharge, Sinus tenderness Mouth exam: Normal external inspection, Tongue normal Teeth exam: Normal inspection. negative: Dental caries Throat exam: Normal inspection. negative: Tonsillar erythema, Tonsillar exudate - Neck Neck exam: Normal inspection, Full ROM. negative: Tenderness - Respiratory Respiratory exam: Normal lung sounds bilaterally. negative: Respiratory distress - Cardiovascular Cardiovascular Exam: Normal rhythm, Normal heart sounds, Tachycardia - GI/Abdominal GI/Abdominal exam: Soft, Normal bowel sounds. negative: Tenderness - Rectal Rectal exam: Deferred - exam: Deferred - Extremities Extremities exam: Full ROM, Normal capillary refill, Pedal edema. negative: Tenderness - Back Back exam: Reports: Normal inspection, Full ROM. Denies: Muscle spasm, Rash noted, Tenderness - Neurological Neurological exam: Alert, CN II-XII intact, Normal gait, Oriented X3 - Psychiatric Psychiatric exam: Normal affect, Normal mood - Skin Skin exam: Dry, Intact, Normal color, Warm Course Vital Signs 09/16/17 09/16/17 05:45 06:43 Temperature 98.2 F Pulse Rate [ 123 H 102 H Pulse Ox Probe] Respiratory 20 24 Rate Blood Pressure 151/90 125/79 [Left Arm] Pulse Ox 100 100 Medical Decision Making - Lab Data Result diagrams: 09/16/17 06:00 09/16/17 06:00 Lab Results 09/16/17 09/16/17 Range/Units 06:00 06:00 WBC 3.9 L (4.2-12.2) K/uL RBC 3.87 (3.80-5.40) M/uL Hgb 9.7 L (11.6-16.0) gm/dl Hct 33.5 L (35.0-47.0) % MCV 86.6 (81-97) fl MCH 25.0 L (27-33) pg MCHC 29.0 L (32-36) g/dl RDW 19.5 H (11.5-14.5) % Plt Count 349 (130-400) K/uL MPV 8.7 (7.4-10.4) fl Neutrophils % 62.0 (47-80) % Eosinophils % Not Reportable Basophils % Not Reportable Lymphocytes 21.0 (16-45) % Monocytes 16.0 H (0-9) % Platelet Estimate Normal (NORMAL) RBC Morphology Normal Eosinophil Count 1.0 (0-6) % Sodium 135 L (136-145) mmol/L Potassium 3.6 (3.4-4.5) mmol/L Chloride 98 (98-107) mmol/L Carbon Dioxide 23.0 (22-29) mmol/L Anion Gap 14.0 (7-16) BUN 7 (6-20) mg/dL Creatinine 0.7 (0.5-0.9) mg/dL Estimated GFR > 60 mL/min Random Glucose 125 H (74-109) mg/dL Calcium 8.8 (8.6-10.0) mg/dL Total Bilirubin 0.40 (0.2-1.0) mg/dL AST 22 (10.0-35.0) U/L ALT 17 (<33) U/L Alkaline Phosphatase 120 H (35-104) U/L NT-Pro-B Natriuret Pep 34.75 (<125) pg/mL Total Protein 7.6 (6.6-8.7) g/dL Albumin 4.1 (4.0-5.0) g/dL Globulin 3.5 (1.4-4.8) gm/dL Albumin/Globulin Ratio 1.2 (1.1-1.8) Disposition Disposition: Discharge Clinical Impression: Extremity edema Anemia Qualifiers: Anemia type: iron deficiency Iron deficiency anemia type: unspecified iron deficiency Qualified Code(s): D50.9 - Iron deficiency anemia, unspecified Disposition: Home, Self-Care Condition: (1) Good Instructions: Leg Edema (ED) Additional Instructions: follow up with family doctor. elevate legs. Quality - Quality Measures Quality Measures: N/A - Blood Pressure Screening Does Patient Have Any of the Following: No Blood Pressure Classification: Pre-Hypertensive BP Reading Systolic Measurement: 125 Diastolic Measurement: 79 Screening for High Blood Pressure: < Pre-Hypertensive BP, F/U Documented > [ G8950] Pre-Hypertensive Follow-up Interventions: Follow-up with rescreen every year.
== END 2017-09-16 07:12 | disposition home or self-care (01) ==
LOC: ER 05:41
DX: R60.0 Localized edema (principal); D50.9 Iron deficiency anemia, unspecified; Z98.84 Bariatric surgery status
CPT/HCPCS: 80053; 83880; 85027; 99283

== ENCOUNTER 2017-10-04 23:16 | Emergency (ER) | payer OTHER, MEDICAID ==
--- NOTE | 2017-10-04 23:46 | Emergency Department Record ---
History of Present Illness - General Chief complaint: Swelling of legs Stated complaint: SWOLLEN FEET Time Seen by Provider: 10/04/17 23:26 Source: Patient Mode of Arrival: Ambulatory Limitations: No limitations - History of Present Illness Initial comments: 47 yo female presents to ED for evaluation of continued lower extremity edema "for several weeks". Patient was seen and evaluated in ED 09/16 for her symptoms , diagnosed with peripheral edema. Patient then went to [facility] 09/23/17 and underwent negative bilateral doppler's for DVT. Patient has been taking OTC diuretic and does report that her edema improves with lower extremity elevation. Patient is in ED for "the pain related to the swelling of her feet" . Patient reports that she does not have a PCP that she sees due to insurance issues. MD Complaint: Extremity swelling Onset/Timin -: Week(s) Location: Left, Right History of Same: Yes Radiation: Distal Severity scale (1-10): 8 Consistency: Constant Improves with: Elevation Worsens with: Nothing Associated Symptoms: Denies other symptoms - Related Data Previous Rx's Medication Instructions Recorded Ropinirole HCl [Requip] 4 mg PO TID #15 tablet 04/17/17 Ropinirole HCl [Requip] 4 mg PO TID #15 tablet 05/08/17 Benzonatate [Tessalon] 2 cap PO Q8H PRN #30 cap 07/26/17 Prednisone [Prednisone 20Mg] 20 mg PO BID #10 tab 07/26/17 Allergies Allergy/AdvReac Type Severity Reaction Status Date / Time latex Allergy Unknown BLISTERS Verified 06/22/17 18:03 morphine Allergy Unknown RASH Verified 06/22/17 18:03 nitrofurantoin Allergy Unknown MUSCLE PAIN Verified 06/22/17 18:03 nitrofurantoin Allergy Unknown MUSCLE PAIN Verified 06/22/17 18:03 macrocrystalline dexamethasone [From Decadron] Allergy BEHAVIORAL Verified 06/22/17 18:03 CHANGES dexamethasone sod phosphate Allergy BEHAVIORAL Verified 06/22/17 18:03 [From Decadron] CHANGES duloxetine HCl Allergy BEHAVIORAL Verified 06/22/17 18:03 [From Cymbalta] CHANGES levofloxacin [From Levaquin] Allergy RASH Verified 06/22/17 18:03 metoclopramide HCl AdvReac HYPERSENSIT Verified 06/22/17 18:03 [From Reglan] IVITY Travel Screening - Travel/Exposure Within Last 30 Days Have you traveled within the last 30 days?: No - Travel/Exposure Within Last Year Have you traveled outside the [place] in the last year?: No - Additonal Travel Details Have you been exposed to anyone with a communicable illness?: No - Travel Symptoms Symptom Screening: None Review of Systems Constitutional: Denies: Chills, Fever, Malaise, Night sweats Eyes: Denies: Eye discharge, Eye pain ENT: Denies: Congestion, Ear pain, Epistaxis Respiratory: Denies: Cough, Dyspnea Cardiovascular: Reports: Edema. Denies: Chest pain, Dyspnea on exertion Endocrine: Denies: Fatigue, Heat or cold intolerance Gastrointestinal: Denies: Abdominal pain, Nausea, Vomiting Genitourinary: Denies: Incontinence, Retention Musculoskeletal: Denies: Arthralgia, Back pain Skin: Denies: Bruising, Change in color Neurological: Denies: Abnormal gait, Confusion, Headache, Seizure Psychiatric: Denies: Anxiety Hematological/Lymphatic: Denies: Anemia, Blood Clots Past Medical History - SOCIAL HISTORY Smoking Status: Never smoker Alcohol Use: None Drug Use: None - RESPIRATORY Hx Respiratory Disorders: Yes Hx Asthma: Yes Comment:: "vocal coord disorder" - CARDIOVASCULAR Hx Cardio Disorders: No - NEURO Hx Neuro Disorders: Yes Hx Seizures: Yes (2013) - GI Hx GI Disorders: Yes Hx Reflux: Yes Comment:: gastric bypass - Hx Genitourinary Disorders: No - ENDOCRINE Hx Endocrine Disorders: No - MUSCULOSKELETAL Hx Musculoskeletal Disorders: Yes Hx Arthritis: Yes Hx Fibromyalgia: Yes Comment:: RLS - PSYCH Hx Psych Problems: Yes Hx Anxiety: Yes - HEMATOLOGY/ONCOLOGY Hx Hematology/Oncology Disorders: No Family Medical History Any Significant Family History?: No Hx Cancer: Mother Hx Heart Disease: Grandparents Physical Exam - General General Appearance: Alert, Oriented x3, Cooperative, Anxious, Other (tearful on examination) Limitations: No limitations - Head Head exam: Atraumatic, Normocephalic, Normal inspection Head exam detail: negative: Abrasion, Contusion, Hernández's sign, General tenderness, Hematoma, Laceration - Eye Eye exam: Normal appearance. negative: Conjunctival injection, Periorbital swelling, Periorbital tenderness, Scleral icterus - ENT Ear exam: negative: Auricular hematoma, Auricular trauma Nasal Exam: negative: Active bleeding, Discharge, Dried blood, Foreign body Mouth exam: negative: Drooling, Laceration, Muffled voice, Tongue elevation - Neck Neck exam: Normal inspection. negative: Meningismus, Tenderness - Respiratory Respiratory exam: Normal lung sounds bilaterally. negative: Rales, Respiratory distress, Rhonchi, Stridor - Cardiovascular Cardiovascular Exam: Regular rate, Normal rhythm, Normal heart sounds Peripheral Pulses: 3+: Dorsalis Pedis (R), Dorsalis Pedis (L) - GI/Abdominal GI/Abdominal exam: Soft. negative: Rebound, Rigid, Tenderness - Rectal Rectal exam: Deferred - exam: Deferred - Extremities Extremities exam: Pedal edema, Other (1+ pedal edema to the dorsum of the feet bilaterally). negative: Tenderness - Neurological Neurological exam: Alert, Normal gait, Oriented X3 - Psychiatric Psychiatric exam: Normal affect, Normal mood - Skin Skin exam: Normal color. negative: Abrasion Type of lesion: negative: abrasion Course Vital Signs 10/04/17 23:34 Temperature 98.1 F Pulse Rate [ 103 H Pulse Ox Probe] Respiratory 20 Rate Blood Pressure 110/71 [Right Arm] Pulse Ox 99 - Reevaluation(s) Reevaluation #1: 10/04/17 23:45 Labs reviewed from 09/16/17 BNP: 34.75 BUN 7/Creatinine 0.7 Hgb 9.7/HCT 33.5 Doppler reviewed from [facility] 09/23/17: Negative for bilateral DVT Was diagnosed with cellulitis and started on Keflex and Bactrim as directed. Reevaluation #2: 10/05/17 00:09 Patient was counseled re: absence of renal dysfunction, CHF, DVT, or cellulitis. Recommended compression stalkings for her symptoms with instructions for follow-up with a PCP in 1 week. Disposition Disposition: Discharge Clinical Impression: Pedal edema Disposition: Home, Self-Care Condition: (2) Stable Instructions: Edema (ED) Additional Instructions: Return to ED if your symptoms worsen or if you have any concerns. Compression stalkings as directed. Follow-up with a primary care provider in 1 week as directed. Forms: Patient Portal Access Time of Disposition: 00:12 Quality - Quality Measures Quality Measures: N/A - Blood Pressure Screening Does Patient Have Any of the Following: No Blood Pressure Classification: Normal BP Reading Systolic Measurement: 110 Diastolic Measurement: 71 Screening for High Blood Pressure: < Normal BP, F/U Not Required > [G6539]
== END 2017-10-05 00:23 | disposition home or self-care (01) ==
LOC: ER 23:16
DX: R60.0 Localized edema (principal)
CPT/HCPCS: 99282

== ENCOUNTER 2018-02-04 10:52 | Emergency (ER) | payer MEDICAID, OTHER ==
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
[2018-02-04] MEDS ORDERED: KETOROLAC 30 MG/ML VIAL IM ONE (11:09)
[2018-02-04] MEDS ORDERED: DIAZEPAM 5 MG TABLET PO ONE ×3 (11:09→12:46)
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
== END 2018-02-04 12:57 | disposition home or self-care (01) ==
LOC: ER 10:52
DX: S16.1XXA Strain of muscle, fascia and tendon at neck level, initial encounter (principal); R51 Headache; V48.1XXA Car passenger injured in noncollision transport accident in nontraffic accident, initial encounter
CPT/HCPCS: 99283; 96372; 99284; 72125; J3490; J1885

== ENCOUNTER 2018-02-20 22:57 | Emergency (ER) | payer BC ==
--- NOTE | 2018-02-20 23:24 | Emergency Department Record ---
History of Present Illness - General Chief complaint: Pain Stated complaint: RT HIP PAIN Time Seen by Provider: 02/20/18 23:19 Source: Patient Mode of Arrival: Ambulatory Limitations: No limitations - History of Present Illness Initial comments: 47 yo female presents to ED for evaluation of left inguinal pain that began this evening, worsens with hip flexion. Patient reports similar symptoms affecting the right inguinal region x 1 month which has resolved. Patient denies injury or trauma, denies fevers, chills, or recent illness. Patient denies abdominal pain, swelling to the area, or urinary symptoms, or vaginal discharge symptoms. MD Complaint: Joint pain Onset/Timin -: Hour(s) Location: Left History of Same: Yes Radiation: None Severity scale (1-10): >10 Quality: Aching, Dull, Other Consistency: Constant, Intermittent Improves with: Nothing Worsens with: Exertion, Walking, Weight bearing Associated Symptoms: Denies other symptoms - Related Data Previous Rx's Medication Instructions Recorded Ropinirole HCl [Requip] 4 mg PO TID #15 tablet 04/17/17 Allergies Allergy/AdvReac Type Severity Reaction Status Date / Time latex Allergy Unknown BLISTERS Verified 02/20/18 23:11 morphine Allergy Unknown RASH Verified 02/20/18 23:11 nitrofurantoin Allergy Unknown MUSCLE PAIN Verified 02/20/18 23:11 nitrofurantoin Allergy Unknown MUSCLE PAIN Verified 02/20/18 23:11 macrocrystalline dexamethasone [From Decadron] Allergy BEHAVIORAL Verified 02/20/18 23:11 CHANGES dexamethasone sod phosphate Allergy BEHAVIORAL Verified 02/20/18 23:11 [From Decadron] CHANGES duloxetine HCl Allergy BEHAVIORAL Verified 02/20/18 23:11 [From Cymbalta] CHANGES levofloxacin [From Levaquin] Allergy RASH Verified 02/20/18 23:11 metoclopramide HCl AdvReac HYPERSENSIT Verified 02/20/18 23:11 [From Reglan] IVITY Travel Screening - Travel/Exposure Within Last 30 Days Have you traveled within the last 30 days?: No - Travel/Exposure Within Last Year Have you traveled outside the [place] in the last year?: No - Additonal Travel Details Have you been exposed to anyone with a communicable illness?: No - Travel Symptoms Symptom Screening: None Review of Systems Constitutional: Denies: Chills, Fever, Malaise, Night sweats Eyes: Denies: Eye discharge, Eye pain ENT: Denies: Congestion, Ear pain, Epistaxis Respiratory: Denies: Cough, Dyspnea Cardiovascular: Denies: Chest pain, Dyspnea on exertion Endocrine: Denies: Fatigue, Heat or cold intolerance Gastrointestinal: Denies: Abdominal pain, Constipation, Nausea, Vomiting Genitourinary: Denies: Incontinence, Retention Musculoskeletal: Reports: Myalgia (Inguinal pain). Denies: Arthralgia, Back pain, Gout, Joint swelling Skin: Denies: Bruising, Change in color Neurological: Denies: Abnormal gait, Confusion, Headache, Seizure Psychiatric: Denies: Anxiety Hematological/Lymphatic: Denies: Anemia, Blood Clots Past Medical History - SOCIAL HISTORY Smoking Status: Never smoker Alcohol Use: Occasional Drug Use: None - RESPIRATORY Hx Respiratory Disorders: Yes Hx Asthma: Yes Comment:: "vocal coord disorder" - CARDIOVASCULAR Hx Cardio Disorders: No - NEURO Hx Neuro Disorders: Yes Hx Seizures: Yes (2013) - GI Hx GI Disorders: Yes Hx Reflux: Yes Comment:: gastric bypass - Hx Genitourinary Disorders: No - ENDOCRINE Hx Endocrine Disorders: No - MUSCULOSKELETAL Hx Musculoskeletal Disorders: Yes Hx Arthritis: Yes Hx Fibromyalgia: Yes Comment:: RLS - PSYCH Hx Psych Problems: Yes Hx Anxiety: Yes - HEMATOLOGY/ONCOLOGY Hx Hematology/Oncology Disorders: No Family Medical History Any Significant Family History?: No Hx Cancer: Mother Hx Heart Disease: Grandparents Physical Exam - General General Appearance: Alert, Oriented x3, Cooperative, Moderate distress, Other ( tearful on examination, pain with hip flexion) Limitations: No limitations - Head Head exam: Atraumatic, Normocephalic, Normal inspection Head exam detail: negative: Abrasion, Contusion, Hernández's sign, General tenderness, Hematoma, Laceration - Eye Eye exam: Normal appearance. negative: Conjunctival injection, Periorbital swelling, Periorbital tenderness, Scleral icterus - ENT Ear exam: negative: Auricular hematoma, Auricular trauma Nasal Exam: negative: Active bleeding, Discharge, Dried blood, Foreign body Mouth exam: negative: Drooling, Laceration, Muffled voice, Tongue elevation - Neck Neck exam: Normal inspection. negative: Meningismus, Tenderness - Respiratory Respiratory exam: Normal lung sounds bilaterally. negative: Rales, Respiratory distress, Rhonchi, Stridor - Cardiovascular Cardiovascular Exam: Regular rate, Normal rhythm, Normal heart sounds - GI/Abdominal GI/Abdominal exam: Soft. negative: Rebound, Rigid, Tenderness - Rectal Rectal exam: Deferred - exam: Deferred - Extremities Extremities exam: Tenderness (TTP to the left inguinal region along the iliacus insertion, no lymphadenopathy is present, no STS or erythema to suggest infection.). negative: Calf tenderness, Pedal edema - Back Back exam: Denies: CVA tenderness (R), CVA tenderness (L) - Neurological Neurological exam: Alert, Normal gait, Oriented X3 - Psychiatric Psychiatric exam: Normal affect, Normal mood - Skin Skin exam: Normal color. negative: Abrasion Type of lesion: negative: abrasion Course Vital Signs 02/20/18 23:04 Temperature 98.3 F Pulse Rate [ 113 H Pulse Ox Probe] Respiratory 28 H Rate Blood Pressure 131/57 [Left Arm] Pulse Ox 99 - Reevaluation(s) Reevaluation #1: 02/20/18 23:25 MAPS was reviewed: Last Narcotic prescription was 08/21. Patient has numerous narcotic prescriptions (#15) from 12 different providers at different EDs. Will obtain UA and CT imaging of the area of concern to evaluation of possible lymphadenoapthy vs. other acute process. Will administer Solumedrol in the ED for likely joint inflammation. Reevaluation #2: 02/21/18 00:24 UA and HCG reviewed and are both negative. Patient is back from CT imaging, results are pending. Reevaluation #3: 02/21/18 00:41 CT Imaging: Divertiulosis without diverticulitis No other acute abnormality of the LLQ Patient was reassessed, she is snoring loudly sleeping, arouses to light touch. Patient reports that she is feeling much better following Solumedrol, and appears stable for discharge with outpatient follow-up in 1-3 days. Disposition Disposition: Discharge Clinical Impression: Inguinal pain Qualifiers: Laterality: left Qualified Code(s): R10.32 - Left lower quadrant pain Disposition: Home, Self-Care Condition: (2) Stable Instructions: Groin Pain (ED) Additional Instructions: Return to ED if your symptoms worsen or if you have any concerns. Follow-up with your family doctor in 1-3 days as directed. Forms: Patient Portal Access Time of Disposition: 00:43 Quality - Quality Measures Quality Measures: N/A - Blood Pressure Screening Does Patient Have Any of the Following: No Blood Pressure Classification: Pre-Hypertensive BP Reading Systolic Measurement: 131 Diastolic Measurement: 57 Screening for High Blood Pressure: < Pre-Hypertensive BP, F/U Documented > [ G8950] Pre-Hypertensive Follow-up Interventions: Referral to alternative/primary care provider.
[2018-02-20] MEDS ORDERED: METHYLPREDNISOLONE PF 125MG/VIAL IVP SCH (23:30)
[2018-02-20] MEDS ORDERED: METHYLPREDNISOLONE PF 125MG/VIAL IM SCH (23:35)
[2018-02-20 23:48] LABS: URINE APPEARANCE SL CLOUDY; URINE BILIRUBIN NEGATIVE (NEGATIVE); URINE BLOOD NEGATIVE (NEGATIVE); URINE COLOR YELLOW; URINE GLUCOSE (UA) NEGATIVE (NEGATIVE); URINE KETONE TRACE (NEGATIVE); URINE LEUKOCYTE ESTERASE NEGATIVE (NEGATIVE); URINE NITRITE NEGATIVE (NEGATIVE); URINE PROTEIN NEGATIVE (NEGATIVE); URINE UROBILINOGEN 0.2 E.U./dL (0.20 - 1.00)
[2018-02-20 23:51] LABS: HCG,QUALITATIVE URINE NEGATIVE (NEGATIVE)
== END 2018-02-21 00:54 | disposition home or self-care (01) ==
LOC: ER 22:57
DX: R10.32 Left lower quadrant pain (principal); M25.551 Pain in right hip
CPT/HCPCS: 72192; 81003; 81025; 96372; 99283; 99284; J2930

== ENCOUNTER 2018-05-26 18:39 | Observation (INO) | payer BC ==
[2018-05-26] MEDS ORDERED: IPRATROPIUM/ALBUTEROL (0.5MG/3MG) NEB INH ONE (19:07)
[2018-05-26] MEDS ORDERED: METHYLPREDNISOLONE PF 125MG/VIAL IVP ONE (19:07)
--- NOTE | 2018-05-26 19:07 | Emergency Department Record ---
History of Present Illness - General Chief complaint: Flu Like Symptoms Stated complaint: IRAJ Time Seen by Provider: 05/26/18 18:51 Source: Patient Mode of Arrival: Ambulatory Limitations: No limitations - History of Present Illness Initial comments: pt has been sick for a few days w productive cough, sob, wheezing. Onset/Timin -: Days(s) Consistency: Intermittent, Getting worse Associated Symptoms: Denies other symptoms - Reynaldo Coma Scale Eye Response: (4) Open spontaneously Motor Response: (6) Obeys commands Verbal Response: (5) Oriented Reynaldo Total: 15 - Related Data Previous Rx's Medication Instructions Recorded Ropinirole HCl [Requip] 4 mg PO TID #15 tablet 04/17/17 Allergies Allergy/AdvReac Type Severity Reaction Status Date / Time latex Allergy Unknown BLISTERS Verified 05/26/18 18:48 morphine Allergy Unknown RASH Verified 05/26/18 18:48 nitrofurantoin Allergy Unknown MUSCLE PAIN Verified 05/26/18 18:48 nitrofurantoin Allergy Unknown MUSCLE PAIN Verified 05/26/18 18:48 macrocrystalline dexamethasone [From Decadron] Allergy BEHAVIORAL Verified 05/26/18 18:48 CHANGES dexamethasone sod phosphate Allergy BEHAVIORAL Verified 05/26/18 18:48 [From Decadron] CHANGES duloxetine HCl Allergy BEHAVIORAL Verified 05/26/18 18:48 [From Cymbalta] CHANGES levofloxacin [From Levaquin] Allergy RASH Verified 05/26/18 18:48 metoclopramide HCl AdvReac HYPERSENSIT Verified 05/26/18 18:48 [From Reglan] IVITY Travel Screening - Travel/Exposure Within Last 30 Days Have you traveled within the last 30 days?: No - Travel/Exposure Within Last Year Have you traveled outside the [place] in the last year?: No - Additonal Travel Details Have you been exposed to anyone with a communicable illness?: No - Travel Symptoms Symptom Screening: None Review of Systems Reviewed: No additional complaints except as noted below Constitutional: Reports: As per HPI. Denies: Chills, Fever, Malaise, Night sweats, Weakness, Weight change Eyes: Reports: As per HPI. Denies: Eye discharge, Eye pain, Photophobia, Vision change ENT: Reports: As per HPI. Denies: Congestion, Dental pain, Ear pain, Epistaxis , Hearing loss, Throat pain Respiratory: Reports: As per HPI, Cough, Wheezes. Denies: Dyspnea, Hemoptysis, Stridor Cardiovascular: Reports: As per HPI. Denies: Arrhythmia, Chest pain, Dyspnea on exertion, Edema, Murmurs, Orthopnea, Palpitations, Paroxysmal nocturnal dyspnea, Rheumatic Fever, Syncope Endocrine: Reports: As per HPI. Denies: Fatigue, Heat or cold intolerance, Polydipsia, Polyuria Gastrointestinal: Reports: As per HPI. Denies: Abdominal pain, Constipation, Diarrhea, Hematemesis, Hematochezia, Melena, Nausea, Vomiting Genitourinary: Reports: As per HPI. Denies: Abnormal menses, Discharge, Dyspareunia, Dysuria, Frequency, Hematuria, Incontinence, Retention, Urgency Musculoskeletal: Reports: As per HPI. Denies: Arthralgia, Back pain, Gout, Joint swelling, Myalgia, Neck pain Skin: Reports: As per HPI. Denies: Bruising, Change in color, Change in hair/ nails, Lesions, Pruritus, Rash Neurological: Reports: As per HPI. Denies: Abnormal gait, Confusion, Headache, Numbness, Paresthesias, Seizure, Tingling, Tremors, Vertigo, Weakness Psychiatric: Reports: As per HPI. Denies: Anxiety, Auditory hallucinations, Depression, Homicidal thoughts, Suicidal thoughts, Visual hallucinations Hematological/Lymphatic: Reports: As per HPI. Denies: Anemia, Blood Clots, Easy bleeding, Easy bruising, Swollen glands Past Medical History - SOCIAL HISTORY Smoking Status: Never smoker Alcohol Use: Occasional Drug Use: None - RESPIRATORY Hx Respiratory Disorders: Yes Hx Asthma: Yes Comment:: "vocal coord disorder" - CARDIOVASCULAR Hx Cardio Disorders: No - NEURO Hx Neuro Disorders: Yes Hx Seizures: Yes (2013) - GI Hx GI Disorders: Yes Hx Reflux: Yes Comment:: gastric bypass - Hx Genitourinary Disorders: No - ENDOCRINE Hx Endocrine Disorders: No - MUSCULOSKELETAL Hx Musculoskeletal Disorders: Yes Hx Arthritis: Yes Hx Fibromyalgia: Yes Comment:: RLS - PSYCH Hx Psych Problems: Yes Hx Anxiety: Yes - HEMATOLOGY/ONCOLOGY Hx Hematology/Oncology Disorders: No Family Medical History Any Significant Family History?: Yes Hx Cancer: Mother Hx Heart Disease: Grandparents Physical Exam - General General Appearance: Alert, Oriented x3, Cooperative, Mild distress - Head Head exam: Normal inspection - Eye Eye exam: Normal appearance, PERRL, EOMI Pupils: Normal accommodation - ENT ENT exam: Normal exam, Mucous membranes moist, Normal external ear exam, Normal orophraynx, TM's normal bilaterally Ear exam: Normal external inspection. negative: External canal tenderness Nasal Exam: Normal inspection. negative: Discharge, Sinus tenderness Mouth exam: Normal external inspection, Tongue normal Teeth exam: Normal inspection. negative: Dental caries Throat exam: Normal inspection. negative: Tonsillar erythema, Tonsillar exudate - Neck Neck exam: Normal inspection, Full ROM. negative: Tenderness - Respiratory Respiratory exam: Accessory muscle use, Respiratory distress, Wheezes - Cardiovascular Cardiovascular Exam: Normal rhythm, Normal heart sounds, Tachycardia - GI/Abdominal GI/Abdominal exam: Soft, Normal bowel sounds. negative: Tenderness - Rectal Rectal exam: Deferred - exam: Deferred - Extremities Extremities exam: Normal inspection, Full ROM, Normal capillary refill. negative: Tenderness - Back Back exam: Reports: Normal inspection, Full ROM. Denies: Muscle spasm, Rash noted, Tenderness - Neurological Neurological exam: Alert, CN II-XII intact, Normal gait, Oriented X3 - Psychiatric Psychiatric exam: Normal affect, Normal mood - Skin Skin exam: Dry, Intact, Normal color, Warm Course Vital Signs 05/26/18 18:49 Temperature 99.5 F Pulse Rate 110 H Respiratory 28 H Rate Blood Pressure 134/67 Pulse Ox 98 - Reevaluation(s) Reevaluation #1: 05/26/18 21:30 pt is better but still wheezing and working Medical Decision Making - Lab Data Result diagrams: 05/26/18 19:25 05/26/18 19:25 Disposition Disposition: Admit Clinical Impression: Asthma exacerbation Qualifiers: Asthma severity: moderate Asthma persistence: persistent Qualified Code(s): J45.41 - Moderate persistent asthma with (acute) exacerbation Disposition: Still a Patient at [facility] Decision to Admit: Admit from ER Decision to Admit Date: 05/26/18 Decision to Admit Time: 21:33 Forms: Patient Portal Access Quality - Quality Measures Quality Measures: N/A - Blood Pressure Screening Does Patient Have Any of the Following: No Blood Pressure Classification: Pre-Hypertensive BP Reading Systolic Measurement: 134 Diastolic Measurement: 67 Screening for High Blood Pressure: < Pre-Hypertensive BP, F/U Documented > [ G8950] Pre-Hypertensive Follow-up Interventions: Follow-up with rescreen every year.
[2018-05-26 19:19] LABS: INFLUENZA A NEGATIVE (NEGATIVE); INFLUENZA B NEGATIVE (NEGATIVE)
[2018-05-26] MEDS ORDERED: ACETAMINOPHEN 500 MG TABLET PO ONE (19:35)
[2018-05-26 19:36] LABS: BASO % 0.5 % (0-6); EOS % 4.5 % (0-6); GRAN % 67.1 % (47-80); HEMATOCRIT 33.5 % (35.0-47.0); HEMOGLOBIN 9.7 gm/dl (11.6-16.0); LYMPH % 15.2 % (16-45); MEAN CELL VOLUME 85.2 fl (81-97); MEAN PLATELET VOLUME 8.9 fl (7.4-10.4); MONO % 12.7 % (0-9); PLATELET COUNT 339 K/uL (130-400); RED BLOOD COUNT 3.93 M/uL (3.80-5.40); RED CELL DISTRIBUTION WIDTH 20.4 % (11.5-14.5)
[2018-05-26 19:40] LABS: MEAN CORPUSCULAR HEMOGLOBIN 24.6 pg (27-33)
[2018-05-26] MEDS ORDERED: ALBUTEROL SULFATE (0.083%) 2.5 MG/3 ML NEB INH ONE ×2 (19:51→20:28)
[2018-05-26 19:59] LABS: BLOOD UREA NITROGEN 7 mg/dL (6-20); CREATININE 0.8 mg/dL (0.5-0.9); EST GLOMERULAR FILTRATION RATE > 60 mL/min
[2018-05-26 20:02] LABS: GLUCOSE,RANDOM 103 mg/dL (74-109)
[2018-05-26] MEDS ORDERED: ALBUTEROL SULFATE (0.083%) 2.5 MG/3 ML NEB INH PRN (21:58)
[2018-05-26] MEDS: METHYLPREDNISOLONE PF 125MG/VIAL IVP SCH (21:59)
[2018-05-26] MEDS: IPRATROPIUM/ALBUTEROL (0.5MG/3MG) NEB INH PRN (22:33)
[2018-05-26] MEDS: ROPINIROLE HCL 1 MG TABLET PO SCH (22:56)
[2018-05-26] MEDS: ACETAMINOPHEN 500 MG TABLET PO PRN (23:03)
[2018-05-26] MEDS: ALBUTEROL SULFATE 0.5% 5 MG/ML BTL 20ML INH SCH (23:33)
[2018-05-27] MEDS ORDERED: LORAZEPAM 2 MG/ML VIAL IV ONE (00:33)
[2018-05-27] MEDS: METHYLPREDNISOLONE PF 125MG/VIAL IVP SCH ×3 (05:44→21:39)
[2018-05-27] MEDS: IPRATROPIUM/ALBUTEROL (0.5MG/3MG) NEB INH PRN ×2 (05:55→21:08)
[2018-05-27] MEDS: ACETAMINOPHEN 500 MG TABLET PO PRN ×3 (07:23→22:10)
--- NOTE | 2018-05-27 07:38 | History & Physical ---
History of Present Illness - Date of Service Date of Service for History & Physical: 05/27/18 - History of Present Illness Admitting Diagnosis: acute exacerbation of asthma History of Present Illness: Ms. Schaefer is a 47 y/o female with a 10 year history of asthma. She says that she has worsened in terms of symptoms and she has had several episodes of bronchitis. She says over the past 5 days she has had persistent cough which is dry. The patient doesn't have a primary care doctor and she has not been using her inhalers because she ran out. She was on Advair and Albuterol. She says she has been using her son's nebulizer intermittently which was not helpful. The patient has had 3 exacerbations over the past 12 months but says she was not admitted to hospital. ED course: The patient was given several albuterol nebulizer treatments in addition to duonebs. She was very tachycardica and tachypneic but appears to have been maintaining oxygen saturations. Chest xray was not suggestive of any acute cardiopulmonary disease. The patient is admitted for continuous respiratory therapy due to her acute asthma exacerbation. PCP: no PCP Travel Screening - Travel/Exposure Within Last 30 Days Have you traveled within the last 30 days?: No - Travel/Exposure Within Last Year Have you traveled outside the [place] in the last year?: No - Additonal Travel Details Have you been exposed to anyone with a communicable illness?: No - Travel Symptoms Symptom Screening: Headache, Joint & Muscle Aches Review of Systems Constitutional: Reports: As per HPI. Denies: Chills, Fever, Malaise, Night sweats, Weakness, Weight change Eyes: Reports: As per HPI. Denies: Eye discharge, Eye pain, Photophobia, Vision change ENT: Reports: As per HPI. Denies: Congestion, Dental pain, Ear pain, Epistaxis , Hearing loss, Throat pain Respiratory: Reports: As per HPI, Cough, Wheezes. Denies: Dyspnea, Hemoptysis, Stridor Cardiovascular: Reports: As per HPI. Denies: Arrhythmia, Chest pain, Dyspnea on exertion, Edema, Murmurs, Orthopnea, Palpitations, Paroxysmal nocturnal dyspnea, Rheumatic Fever, Syncope Endocrine: Reports: As per HPI. Denies: Fatigue, Heat or cold intolerance, Polydipsia, Polyuria Gastrointestinal: Reports: As per HPI. Denies: Abdominal pain, Constipation, Diarrhea, Hematemesis, Hematochezia, Melena, Nausea, Vomiting Genitourinary: Reports: As per HPI. Denies: Abnormal menses, Discharge, Dyspareunia, Dysuria, Frequency, Hematuria, Incontinence, Retention, Urgency Musculoskeletal: Reports: As per HPI. Denies: Arthralgia, Back pain, Gout, Joint swelling, Myalgia, Neck pain Skin: Reports: As per HPI. Denies: Bruising, Change in color, Change in hair/ nails, Lesions, Pruritus, Rash Neurological: Reports: As per HPI. Denies: Abnormal gait, Confusion, Headache, Numbness, Paresthesias, Seizure, Tingling, Tremors, Vertigo, Weakness Psychiatric: Reports: As per HPI. Denies: Anxiety, Auditory hallucinations, Depression, Homicidal thoughts, Suicidal thoughts, Visual hallucinations Hematological/Lymphatic: Reports: As per HPI. Denies: Anemia, Blood Clots, Easy bleeding, Easy bruising, Swollen glands Past Medical History - SOCIAL HISTORY Smoking Status: Never smoker Alcohol Use: Occasional Drug Use: None - RESPIRATORY Hx Respiratory Disorders: Yes Hx Asthma: Yes Comment:: "vocal coord disorder" - CARDIOVASCULAR Hx Cardio Disorders: No - NEURO Hx Neuro Disorders: Yes Hx Seizures: Yes (2013) - GI Hx GI Disorders: Yes Hx Reflux: Yes Comment:: gastric bypass - Hx Genitourinary Disorders: No - ENDOCRINE Hx Endocrine Disorders: No - MUSCULOSKELETAL Hx Musculoskeletal Disorders: Yes Hx Arthritis: Yes Hx Fibromyalgia: Yes Comment:: RLS - PSYCH Hx Psych Problems: Yes Hx Anxiety: Yes - HEMATOLOGY/ONCOLOGY Hx Hematology/Oncology Disorders: No Family Medical History Any Significant Family History?: Yes Hx Cancer: Mother Hx Heart Disease: Grandparents H&P Meds/Allergies - Allergies Allergies: Allergies Allergy/AdvReac Type Severity Reaction Status Date / Time latex Allergy Unknown BLISTERS Verified 05/26/18 18:48 morphine Allergy Unknown RASH Verified 05/26/18 18:48 nitrofurantoin Allergy Unknown MUSCLE PAIN Verified 05/26/18 18:48 nitrofurantoin Allergy Unknown MUSCLE PAIN Verified 05/26/18 18:48 macrocrystalline dexamethasone [From Decadron] Allergy BEHAVIORAL Verified 05/26/18 18:48 CHANGES dexamethasone sod phosphate Allergy BEHAVIORAL Verified 05/26/18 18:48 [From Decadron] CHANGES duloxetine HCl Allergy BEHAVIORAL Verified 05/26/18 18:48 [From Cymbalta] CHANGES levofloxacin [From Levaquin] Allergy RASH Verified 05/26/18 18:48 metoclopramide HCl AdvReac HYPERSENSIT Verified 05/26/18 18:48 [From Reglan] IVITY - Home Medications Previous Rx's Medication Instructions Recorded Ropinirole HCl [Requip] 4 mg PO TID #15 tablet 04/17/17 - Active Medications Active Medications: Current Medications Acetaminophen (Tylenol 500mg Tab) 1,000 mg PO Q6H PRN PRN Reason: PAIN - MILD(1-4)/FEVER Last Admin: 05/27/18 07:23 Dose: 1,000 mg Albuterol Sulfate (Albuterol Sulfate) 2.5 mg INH RESP.Q4H PRN PRN Reason: DIFFICULTY IN BREATHING Last Admin: 05/27/18 02:32 Dose: 2.5 mg Albuterol Sulfate (Albuterol Sulfate) 2.5 mg INH RESP.Q1H PRN PRN Reason: DIFFICULTY IN BREATHING Albuterol Sulfate () 10 mg INH CONT NOMAN Last Admin: 05/26/18 23:33 Dose: 10 mg Albuterol/Ipratropium (Duoneb) 3 ml INH RESP.Q6H PRN PRN Reason: WHEEZING Last Admin: 05/27/18 05:55 Dose: 3 ml Methylprednisolone Sodium Succinate (Solu-Medrol) 60 mg IVP Q8H NOMAN Last Admin: 05/27/18 05:44 Dose: 60 mg Ropinirole HCl (Requip) 4 mg PO TID [facility] Last Admin: 05/26/18 22:56 Dose: 4 mg Physical Exam - Vital Signs Vital Signs: Vital Signs - Last 24 Hrs Temp Pulse Pulse Resp BP BP Pulse Ox 05/27/18 06:00 98.3 F 111 H 24 107/70 98 05/27/18 05:55 120 H 24 98 05/27/18 02:33 120 H 26 H 98 05/27/18 02:00 98.1 F 125 H 28 H 120/56 98 05/26/18 23:00 112 H 28 H 05/26/18 22:33 112 H 28 H 100 05/26/18 22:00 120 H 28 H 128/57 99 05/26/18 20:46 109 H 24 100/62 99 05/26/18 20:36 102 H 22 05/26/18 19:50 108 H 28 H 05/26/18 19:11 104 H 28 H 05/26/18 18:49 99.5 F 110 H 28 H 134/67 98 - General General Appearance: Alert, Oriented x3, Cooperative, Mild distress Limitations: No limitations - Head Head exam: Normal inspection - Eye Eye exam: Normal appearance, PERRL, EOMI Pupils: Normal accommodation - ENT ENT exam: Normal exam, Mucous membranes moist, Normal external ear exam, Normal orophraynx, TM's normal bilaterally Ear exam: Normal external inspection. negative: External canal tenderness Nasal Exam: Normal inspection. negative: Discharge, Sinus tenderness Mouth exam: Normal external inspection, Tongue normal Teeth exam: Normal inspection. negative: Dental caries Throat exam: Normal inspection. negative: Tonsillar erythema, Tonsillar exudate - Neck Neck exam: Normal inspection, Full ROM. negative: Tenderness - Respiratory Respiratory exam: Accessory muscle use, Respiratory distress, Wheezes - Cardiovascular Cardiovascular Exam: Normal rhythm, Normal heart sounds, Tachycardia - GI/Abdominal GI/Abdominal exam: Soft, Normal bowel sounds. negative: Tenderness - Rectal Rectal exam: Deferred - exam: Deferred - Extremities Extremities exam: Normal inspection, Full ROM, Normal capillary refill. negative: Tenderness - Back Back exam: Reports: Normal inspection, Full ROM. Denies: Muscle spasm, Rash noted, Tenderness - Neurological Neurological exam: Alert, CN II-XII intact, Normal gait, Oriented X3 - Psychiatric Psychiatric exam: Normal affect, Normal mood - Skin Skin exam: Dry, Intact, Normal color, Warm Results - Labs Result Diagrams: 05/26/18 19:25 05/26/18 19:25 Labs Last 24 Hours: Laboratory Results - last 24 hr 05/26/18 05/26/18 05/26/18 19:03 19:25 19:25 WBC 6.0 RBC 3.93 Hgb 9.7 L Hct 33.5 L MCV 85.2 MCH 24.6 L MCHC 29.0 L RDW 20.4 H Plt Count 339 MPV 8.9 Gran % 67.1 Lymphocytes % 15.2 L Monocytes % 12.7 H Eosinophils % 4.5 Basophils % 0.5 Sodium 136 Potassium 3.7 Chloride 100 Carbon Dioxide 18.0 L Anion Gap 18.0 H BUN 7 Creatinine 0.8 Estimated GFR > 60 Random Glucose 103 Calcium 9.6 Influenza Type A Ag Negative Influenza Type B Ag Negative VTE H&P Assessment - Risk for VTE Risk for VTE: Yes Risk Level: Moderate Risk Assessment Date: 05/27/18 Risk Assessment Time: 11:25 VTE Orders Placed or Will Be Placed: Yes Plan - Detailed Diagnosis and Plan (1) Asthma exacerbation Current Visit: Yes Status: Acute Qualifiers: Asthma severity: moderate Asthma persistence: persistent Qualified Code(s ): J45.41 - Moderate persistent asthma with (acute) exacerbation Base Code: J45.901 - UNSPECIFIED ASTHMA WITH (ACUTE) EXACERBATION Comment: 05/27/18: - acute exacerbation of moderate-persistent asthma. - on albuterol nebs q4H PRN, duonebs Q6H NOMAN, oxygen prn to keep sats > 92% - solumedrol 60mg Q8H and change to QD tomorrow. - measure peak flow, Ativan 0,5mg IV PRN for anxiety. (2) Headache Current Visit: No Status: Acute Qualifiers: Headache type: unspecified Headache chronicity pattern: unspecified pattern Intractability: not intractable Qualified Code(s): R51 - Headache Base Code: R51 - HEADACHE Comment: 05/27/18: - Tylenol 500mg Q6H PRN, Ibuprofen 400mg Q6H PRN. (3) RLS (restless legs syndrome) Current Visit: Yes Status: Acute Base Code: G25.81 - RESTLESS LEGS SYNDROME Comment: 05/27/18: - Resume Requip 4mg TID (4) DVT prophylaxis Current Visit: Yes Status: Acute Base Code: [id number] - Comment: 05/27/18: - Lovenox 40mg daily (5) Full code status Current Visit: Yes Status: Acute Base Code: Z78.9 - OTHER SPECIFIED HEALTH STATUS Comment: 05/27/18: - Pt is full code
[2018-05-27] MEDS: ALBUTEROL SULFATE 0.5% 5 MG/ML BTL 20ML INH SCH ×2 (07:55→14:03)
[2018-05-27] MEDS ORDERED: ALBUTEROL SULFATE 0.5% 5 MG/ML BTL 20ML INH SCH (08:00)
[2018-05-27] MEDS: ROPINIROLE HCL 1 MG TABLET PO SCH ×3 (09:15→21:40)
[2018-05-27] MEDS ORDERED: LORAZEPAM 0.5 MG TABLET PO ONE (10:04)
[2018-05-27] MEDS: ALBUTEROL SULFATE (0.083%) 2.5 MG/3 ML NEB INH PRN (11:15)
[2018-05-27] MEDS ORDERED: IBUPROFEN 400 MG TABLET PO ONE (11:25)
[2018-05-27] MEDS ORDERED: IBUPROFEN 400 MG TABLET PO PRN (12:31)
--- NOTE | 2018-05-27 13:51 | RADIOLOGY REPORT ---
DATE: 05/26/2018 at 7:38 p.m. EXAM: TWO-VIEW CHEST. HISTORY: SHORTNESS OF BREATH. TECHNIQUE: PA and lateral views. COMPARISON: None. FINDINGS: Heart size is normal. No definite acute infiltrate seen. No pleural effusion or pneumothorax evident. Mild spurring in the spine. IMPRESSION: MILD SPURRING IN THE SPINE. NO DEFINITE ACUTE INFILTRATE SEEN. JOB NUMBER: [id number] MTDD
[2018-05-27] MEDS: ENOXAPARIN 40 MG/0.4 ML SYR SQ SCH (14:10)
[2018-05-27] MEDS: LORAZEPAM 2 MG/ML VIAL IV PRN (15:43)
[2018-05-27] MEDS: 0.9 % SODIUM CHLORIDE 1000ML 1,000 ML IV SCH (22:01)
[2018-05-28] MEDS: ALBUTEROL SULFATE (0.083%) 2.5 MG/3 ML NEB INH PRN ×2 (01:00→14:04)
[2018-05-28] MEDS: LORAZEPAM 2 MG/ML VIAL IV PRN (01:14)
[2018-05-28] MEDS: IPRATROPIUM/ALBUTEROL (0.5MG/3MG) NEB INH PRN ×3 (06:02→23:07)
[2018-05-28 06:18] LABS: HEMATOCRIT 30.9 % (35.0-47.0); HEMOGLOBIN 8.7 gm/dl (11.6-16.0); MEAN CELL VOLUME 86.6 fl (81-97); MEAN CORPUSCULAR HGB CONC 28.2 g/dl (32-36); MEAN PLATELET VOLUME 9.5 fl (7.4-10.4); MONO % 5.9 % (0-9); PLATELET COUNT 427 K/uL (130-400); RED BLOOD COUNT 3.57 M/uL (3.80-5.40); RED CELL DISTRIBUTION WIDTH 20.9 % (11.5-14.5); WHITE BLOOD COUNT W/O DIFF 9.2 K/uL (4.2-12.2)
[2018-05-28 06:25] LABS: MEAN CORPUSCULAR HEMOGLOBIN 24.3 pg (27-33)
[2018-05-28] MEDS: ACETAMINOPHEN 500 MG TABLET PO PRN ×3 (06:26→22:18)
[2018-05-28 06:29] LABS: BLOOD UREA NITROGEN 11 mg/dL (6-20); CREATININE 0.7 mg/dL (0.5-0.9); EST GLOMERULAR FILTRATION RATE > 60 mL/min; GLUCOSE,RANDOM 180 mg/dL (74-109)
[2018-05-28 06:49] LABS: ANISOCYTOSIS 2+; HYPOCHROMIA 1+; MICROCYTOSIS 1+; PLATELET ESTIMATE INCREASED (NORMAL)
[2018-05-28] MEDS: PREDNISONE 20 MG TAB PO SCH (08:08)
[2018-05-28] MEDS: ROPINIROLE HCL 1 MG TABLET PO SCH ×3 (10:11→22:18)
[2018-05-28] MEDS: ENOXAPARIN 40 MG/0.4 ML SYR SQ SCH (10:12)
[2018-05-28] MEDS: 0.9 % SODIUM CHLORIDE 1000ML 1,000 ML IV SCH ×2 (11:21→23:17)
--- NOTE | 2018-05-28 12:15 | Physician Progress Note ---
Subjective - Date Date of Physician Progress Note: 05/28/18 - Subjective Subjective Comment: The patient is awake, and alert but appears anxious and hyperventilates at times. She says that she had difficulty sleeping last night but she feels quite tired now. Nursing noted tachycardia in the 130s last night. Solumedrol was discontinued and the patient was started on IV fluids. This morning her heart rate has come down and she is reaching saturations goals without supplemental oxygen. Objective - Vital Signs Vital Signs: Vital Signs - Last 24 Hrs Temp Pulse Pulse Resp BP BP Pulse Ox 05/28/18 10:00 97.2 F L 66 16 133/61 97 05/28/18 09:58 102 H 20 99 05/28/18 08:10 24 05/28/18 06:02 103 H 22 100 05/28/18 06:00 98.2 F 107 H 22 135/77 100 05/28/18 01:00 116 H 28 H 97 05/27/18 22:00 98.8 F 130 H 26 H 131/89 99 05/27/18 21:08 126 H 26 H 97 05/27/18 21:00 126 H 26 H 05/27/18 18:00 98.1 F 129 H 22 150/92 99 05/27/18 16:00 99.3 F 124 H 26 H 123/69 96 - General General Appearance: Alert, Oriented x3, Cooperative, Mild distress Limitations: No limitations - Head Head exam: Normal inspection - Eye Eye exam: Normal appearance, PERRL, EOMI Pupils: Normal accommodation - ENT ENT exam: Normal exam, Mucous membranes moist, Normal external ear exam, Normal orophraynx, TM's normal bilaterally Ear exam: Normal external inspection. negative: External canal tenderness Nasal Exam: Normal inspection. negative: Discharge, Sinus tenderness Mouth exam: Normal external inspection, Tongue normal Teeth exam: Normal inspection. negative: Dental caries Throat exam: Normal inspection. negative: Tonsillar erythema, Tonsillar exudate - Neck Neck exam: Normal inspection, Full ROM. negative: Tenderness - Respiratory Respiratory exam: Prolonged expiratory, Wheezes - Cardiovascular Cardiovascular Exam: Normal rhythm, Normal heart sounds, Tachycardia Peripheral Pulses: 3+: Radial (R), Radial (L), Dorsalis Pedis (R), Dorsalis Pedis (L) - GI/Abdominal GI/Abdominal exam: Soft, Normal bowel sounds. negative: Tenderness - Rectal Rectal exam: Deferred - exam: Deferred - Extremities Extremities exam: Normal inspection, Full ROM, Normal capillary refill. negative: Tenderness - Back Back exam: Reports: Normal inspection, Full ROM. Denies: Muscle spasm, Rash noted, Tenderness - Neurological Neurological exam: Alert, CN II-XII intact, Normal gait, Oriented X3 - Psychiatric Psychiatric exam: Normal affect, Normal mood - Skin Skin exam: Dry, Intact, Normal color, Warm Assessment and Plan - Assessment and Plan (1) Asthma exacerbation Current Visit: Yes Status: Acute Qualifiers: Asthma severity: moderate Asthma persistence: persistent Qualified Code(s ): J45.41 - Moderate persistent asthma with (acute) exacerbation Base Code: J45.901 - UNSPECIFIED ASTHMA WITH (ACUTE) EXACERBATION Comment: 05/28/18: improving but still with lots of wheezing and decrease air movement - acute exacerbation of moderate-persistent asthma. - on albuterol nebs q4H PRN, duonebs Q6H NOMAN, oxygen prn to keep sats > 92% - Prednisone 40mg daily - measure peak flow, Ativan 0,5mg IV PRN for anxiety. (2) RLS (restless legs syndrome) Current Visit: Yes Status: Acute Base Code: G25.81 - RESTLESS LEGS SYNDROME Comment: 05/28/18: - Resume Requip 4mg TID (3) DVT prophylaxis Current Visit: Yes Status: Acute Base Code: [id number] - Comment: 05/28/18: - Lovenox 40mg daily (4) Full code status Current Visit: Yes Status: Acute Base Code: Z78.9 - OTHER SPECIFIED HEALTH STATUS Comment: 05/28/18: - Pt is full code Results - Labs Result Diagrams: 05/28/18 06:00 05/28/18 06:00 Labs Last 24 Hours: Laboratory Results - last 24 hr 05/28/18 05/28/18 06:00 06:00 WBC 9.2 RBC 3.57 L Hgb 8.7 L Hct 30.9 L MCV 86.6 MCH 24.3 L MCHC 28.2 L RDW 20.9 H Plt Count 427 H MPV 9.5 Neutrophils % 87.0 H Band Neutrophils % 4.0 Lymphocytes % 5.0 L Monocytes % 5.9 Eosinophils % 0.0 Basophils % 0.0 Lymphocytes 5.0 L Monocytes 4.0 Platelet Estimate Increased Hypochromasia 1+ Anisocytosis 2+ Microcytosis 1+ Macrocytosis 1+ Sodium 137 Potassium 4.0 Chloride 104 Carbon Dioxide 19.0 L Anion Gap 14.0 BUN 11 Creatinine 0.7 Estimated GFR > 60 Random Glucose 180 H Calcium 9.3 DVT/PE Assessment - Risk for VTE Risk for VTE: No Risk Level: Moderate Risk Assessment Date: 05/27/18 Risk Assessment Time: 11:25 VTE Orders Placed or Will Be Placed: Yes - Active Medicaitons Current Medications: Current Medications Acetaminophen (Tylenol 500mg Tab) 1,000 mg PO Q6H PRN PRN Reason: PAIN - MILD(1-4)/FEVER Last Admin: 05/28/18 06:26 Dose: 1,000 mg Albuterol Sulfate (Albuterol Sulfate) 2.5 mg INH RESP.Q1H PRN PRN Reason: DIFFICULTY IN BREATHING Last Admin: 05/28/18 01:00 Dose: 2.5 mg Albuterol Sulfate () 10 mg INH CONT [facility] Last Admin: 05/27/18 14:03 Dose: 10 mg Albuterol/Ipratropium (Duoneb) 3 ml INH RESP.Q6H PRN PRN Reason: WHEEZING Last Admin: 05/28/18 09:56 Dose: 3 ml Enoxaparin Sodium (Lovenox) 40 mg SQ DAILY [facility] Last Admin: 05/28/18 10:12 Dose: 40 mg Sodium Chloride () 1,000 mls @ 83 mls/hr IV .Q12H3M [facility] Last Admin: 05/28/18 11:21 Dose: 83 mls/hr Ibuprofen (Motrin 400mg) 400 mg PO Q6H PRN PRN Reason: PAIN - MILD (1-4) Lorazepam (Ativan) 1 mg IV Q8H PRN PRN Reason: ANXIETY Last Admin: 05/28/18 01:14 Dose: 1 mg Prednisone (Prednisone 20mg) 40 mg PO DAILYWM [facility] Last Admin: 05/28/18 08:08 Dose: 40 mg Ropinirole HCl (Requip) 4 mg PO TID [facility] Last Admin: 05/28/18 10:11 Dose: 4 mg AMI Plan - Labs Result Diagrams: 05/28/18 06:00 05/28/18 06:00
[2018-05-28] MEDS: GUAIFENESIN/D-METH. 10 ML UDC PO PRN ×2 (16:57→22:18)
[2018-05-28] MEDS: ALBUTEROL SULFATE 0.5% 5 MG/ML BTL 20ML INH SCH (17:53)
[2018-05-28] MEDS ORDERED: LORAZEPAM 2 MG/ML VIAL IM ONE (19:00)
[2018-05-29] MEDS ORDERED: DIPHENHYDRAMINE HCL 25 MG CAPSULE PO PRN (01:38)
[2018-05-29] MEDS: ALBUTEROL SULFATE (0.083%) 2.5 MG/3 ML NEB INH PRN (04:09)
[2018-05-29 06:40] LABS: BASO % 0.1 % (0-6); EOS % 0.4 % (0-6); GRAN % 62.8 % (47-80); HEMOGLOBIN 8.2 gm/dl (11.6-16.0); LYMPH % 27.5 % (16-45); MEAN CELL VOLUME 87.6 fl (81-97); MEAN CORPUSCULAR HGB CONC 28.3 g/dl (32-36); MEAN PLATELET VOLUME 9.3 fl (7.4-10.4); MONO % 9.2 % (0-9); PLATELET COUNT 393 K/uL (130-400); RED BLOOD COUNT 3.31 M/uL (3.80-5.40); RED CELL DISTRIBUTION WIDTH 20.8 % (11.5-14.5); WHITE BLOOD COUNT W/O DIFF 7.1 K/uL (4.2-12.2)
[2018-05-29 06:43] LABS: MEAN CORPUSCULAR HEMOGLOBIN 24.7 pg (27-33)
[2018-05-29] MEDS: IPRATROPIUM/ALBUTEROL (0.5MG/3MG) NEB INH PRN (08:29)
[2018-05-29] MEDS: PREDNISONE 20 MG TAB PO SCH (09:05)
[2018-05-29] MEDS: ROPINIROLE HCL 1 MG TABLET PO SCH (09:05)
[2018-05-29] MEDS: ENOXAPARIN 40 MG/0.4 ML SYR SQ SCH (09:06)
[2018-05-29] MEDS: 0.9 % SODIUM CHLORIDE 1000ML 1,000 ML IV SCH (09:16)
[2018-05-29] MEDS ORDERED: ACETAMINOPHEN 1,000 MG/100 ML BTL IVPB ONE (10:37)
--- NOTE | 2018-05-29 11:55 | Discharge Summary ---
Providers Discharge Summary Date: 05/29/18 Date of admission: 05/26/18 21:46 Attending physician: ANUEL DONIS Physical Exam - Vital Signs Vital Signs: Vital Signs - Last 24 Hrs Temp Pulse Pulse Resp BP BP Pulse Ox 05/29/18 10:00 98.1 F 107 H 22 119/84 94 L 05/29/18 08:29 111 H 20 99 05/29/18 08:23 22 05/29/18 06:00 98.5 F 92 H 17 131/63 100 05/29/18 04:09 98 H 26 H 96 05/29/18 02:00 99.5 F 95 H 22 117/73 97 05/28/18 23:07 106 H 24 96 05/28/18 22:00 97.9 F 107 H 28 H 121/83 100 05/28/18 21:00 107 H 28 H 05/28/18 17:10 97.5 F L 104 H 141/90 97 05/28/18 14:06 111 H 20 98 - General General Appearance: Alert, Oriented x3, Cooperative, Mild distress Limitations: No limitations - Head Head exam: Normal inspection - Eye Eye exam: Normal appearance, PERRL, EOMI Pupils: Normal accommodation - ENT ENT exam: Normal exam, Mucous membranes moist, Normal external ear exam, Normal orophraynx, TM's normal bilaterally Ear exam: Normal external inspection. negative: External canal tenderness Nasal Exam: Normal inspection. negative: Discharge, Sinus tenderness Mouth exam: Normal external inspection, Tongue normal Teeth exam: Normal inspection. negative: Dental caries Throat exam: Normal inspection. negative: Tonsillar erythema, Tonsillar exudate - Neck Neck exam: Normal inspection, Full ROM. negative: Tenderness - Respiratory Respiratory exam: Wheezes - Cardiovascular Cardiovascular Exam: Normal rhythm, Normal heart sounds, Tachycardia Peripheral Pulses: 3+: Radial (R), Radial (L), Dorsalis Pedis (R), Dorsalis Pedis (L) - GI/Abdominal GI/Abdominal exam: Soft, Normal bowel sounds. negative: Tenderness - Rectal Rectal exam: Deferred - exam: Deferred - Extremities Extremities exam: Normal inspection, Full ROM, Normal capillary refill. negative: Tenderness - Back Back exam: Reports: Normal inspection, Full ROM. Denies: Muscle spasm, Rash noted, Tenderness - Neurological Neurological exam: Alert, CN II-XII intact, Normal gait, Oriented X3 - Psychiatric Psychiatric exam: Normal affect, Normal mood - Skin Skin exam: Dry, Intact, Normal color, Warm Hospitalization - Hospitalization Admission Diagnosis: acute exacerbation of asthma - Problem List/Discharge Diagnosis (1) Asthma exacerbation Current Visit: Yes Status: Acute Discharge Diagnosis: Asthma severity: moderate Asthma persistence: persistent Qualified Code(s ): J45.41 - Moderate persistent asthma with (acute) exacerbation Base Code: J45.901 - UNSPECIFIED ASTHMA WITH (ACUTE) EXACERBATION Comment: 05/29/18: improving but still with lots of wheezing and decrease air movement - acute exacerbation of moderate-persistent asthma. - on albuterol nebs q4H PRN, duonebs Q6H NOMAN, oxygen prn to keep sats > 92% - Prednisone 40mg daily - measure peak flow, Ativan 0,5mg IV PRN for anxiety. (2) Tachycardia Current Visit: Yes Status: Acute Base Code: R00.0 - TACHYCARDIA, UNSPECIFIED Comment: 05/29/18: - pt has been had been tachycardic throughut her stay primarily due her anxiety and hyperventilation. She has been on continuous personnel monitor which has not shown any acute changes. (3) Anxiety Current Visit: Yes Status: Acute Base Code: F41.9 - ANXIETY DISORDER, UNSPECIFIED Comment: 05/29/18: - Ativan 1 mg IVP Q6H PRN (4) RLS (restless legs syndrome) Current Visit: Yes Status: Acute Base Code: G25.81 - RESTLESS LEGS SYNDROME Comment: 05/29/18: - Resume Requip 4mg TID (5) DVT prophylaxis Current Visit: Yes Status: Acute Base Code: [id number] - Comment: 05/29/18: - Lovenox 40mg daily (6) Full code status Current Visit: Yes Status: Acute Base Code: Z78.9 - OTHER SPECIFIED HEALTH STATUS Comment: 05/29/18: - Pt is full code - Hospitalization Course Hospital Course: Ms. Schaefer is a 47 y/o female with a 10 year history of asthma. She says that she has worsened in terms of symptoms and she has had several episodes of bronchitis. She says over the past 5 days she has had persistent cough which is dry. The patient doesn't have a primary care doctor and she has not been using her inhalers because she ran out. She was on Advair and Albuterol. She says she has been using her son's nebulizer intermittently which was not helpful. The patient has had 3 exacerbations over the past 12 months but says she was not admitted to hospital. ED course: The patient was given several albuterol nebulizer treatments in addition to duonebs. She was very tachycardica and tachypneic but appears to have been maintaining oxygen saturations. Chest xray was not suggestive of any acute cardiopulmonary disease. The patient is admitted for continuous respiratory therapy due to her acute asthma exacerbation. 05/28-: The patient maintained saturations throughout her hospital course. She had continuous treatments of albuterol every 4 hours PRN and duonebs every 6 hours. The patient became quite tachycardic on 05/27 but improved once IV solumedrol was stopped and fluids given. Again on the evening of 05/28 she again became very tachycardic and required another dose of Ativan which resolved her tachycardia and anxiety. The patient is doing well today but still has a lot of anxiety. I encouraged her to get a primary care doctor within the next 1-2 weeks for her asthma and other issues. I will provide scripts for her inhalers and oral medication for her to continue to take once discharged. PCP: no PCP Procedures: Imaging and X-Rays 05/26/18 19:07 CHEST 2 VIEWS [RAD] Stat Cardiology Procedures 05/27/18 21:50 Telemetry [Senior Caregiver] NOW Abnormal Labs: Abnormal Lab Results 05/26/18 05/26/18 05/28/18 Range/Units 19:25 19:25 06:00 RBC 3.57 L (3.80-5.40) M/uL Hgb 9.7 L 8.7 L (11.6-16.0) gm/dl Hct 33.5 L 30.9 L (35.0-47.0) % MCH 24.6 L 24.3 L (27-33) pg MCHC 29.0 L 28.2 L (32-36) g/dl RDW 20.4 H 20.9 H (11.5-14.5) % Plt Count 427 H (130-400) K/uL Neutrophils % 87.0 H (47-80) % Lymphocytes % 15.2 L 5.0 L (16-45) % Monocytes % 12.7 H (0-9) % Lymphocytes 5.0 L (16-45) % Carbon Dioxide 18.0 L (22-29) mmol/L Anion Gap 18.0 H (7-16) Random Glucose (74-109) mg/dL 05/28/18 05/29/18 Range/Units 06:00 06:27 RBC 3.31 L (3.80-5.40) M/uL Hgb 8.2 L (11.6-16.0) gm/dl Hct 29.0 L (35.0-47.0) % MCH 24.7 L (27-33) pg MCHC 28.3 L (32-36) g/dl RDW 20.8 H (11.5-14.5) % Plt Count (130-400) K/uL Neutrophils % (47-80) % Lymphocytes % (16-45) % Monocytes % 9.2 H (0-9) % Lymphocytes (16-45) % Carbon Dioxide 19.0 L (22-29) mmol/L Anion Gap (7-16) Random Glucose 180 H (74-109) mg/dL Condition at Discharge: (2) Stable Discharge Medications - Discharge Medications Prescriptions: Albuterol Sulfate 0.083% [Neb] [Albuterol Sulfate] 2.5 mg INH RESP.Q1H PRN #30 nebulization solution PRN Reason: Difficulty In Breathing Fluticasone/Salmeterol [Advair 250-50 Diskus] 1 each IH BID #1 blst.w.dev Lorazepam [Ativan] 0.5 mg PO DAILY #7 tablet Nystatin 1 each PO BID #1 powder.ea. Prednisone [Prednisone 20Mg] 40 mg PO DAILYWM 3 Days #6 tab Home Medications: Ambulatory Orders Albuterol Sulfate 0.083% [Neb] [Albuterol Sulfate] 3 ml NEB .EVERY 4-6 HOURS PRN 12/05/15 [Last Taken 1 Day Ago ~06/21/17] Ropinirole HCl [Requip] 4 mg PO TID #15 tablet 04/17/17 [Last Taken 05/26/18] Albuterol Sulfate 0.083% [Neb] [Albuterol Sulfate] 2.5 mg INH RESP.Q1H PRN #30 nebulization solution 05/29/18 [Last Taken Unknown] Albuterol Sulfate [Proair Hfa] 8.5 gm IH ASDIR PRN #10 inhaler 05/29/18 [Last Taken Unknown] Fluticasone/Salmeterol [Advair 250-50 Diskus] 1 each IH BID #1 blst.w.dev [Last Taken Unknown] Lorazepam [Ativan] 0.5 mg PO DAILY #7 tablet 05/29/18 [Last Taken Unknown] Nystatin 1 each PO BID #1 powder.ea. 05/29/18 [Last Taken Unknown] Prednisone [Prednisone 20Mg] 40 mg PO DAILYWM 3 Days #6 tab 05/29/18 [Last Taken Unknown] Discharge Plan - Discharge Instructions Diet at Discharge: Regular Diet Additional Instructions: Please follow up with a primary care doctor in 1 week. It is important that you do this for better control of your asthma and to develop an asthma rescue plan. Medications: 1. Prednisone 40mg daily x 3 more days. 2. Advair inhaler use twice daily and make sure to rinse your mouth after use. 3. Albuterol nebulizer every 4 hours as needed. 4. Albuterol rescue inhaler while out and away from home as needed. 5. Ativan 0.5mg daily as needed ( Hand script given) #10 tabs only with no refills. If you have worsening symptoms please return to the ED. Quality Measures - Quality Measures Quality Measures: Documentation of Current Medications in Medical Record, Screening for High Blood Pressure and F/U Documented - Current Medications Quality Measure: Measure #130: Documentation of Current Medications Documentation of Current Medications: <Current Medications Documented/Reviewed> [G8427] - Blood Pressure Screening Quality Measure: Screening for High Blood Pressure and Follow-Up Documented Does Patient Have Any of the Following: No Blood Pressure Classification: Pre-Hypertensive BP Reading Systolic Measurement: 134 Diastolic Measurement: 67 Screening for High Blood Pressure: < Pre-Hypertensive BP, F/U Documented > [ G8950] Pre-Hypertensive Follow-up Interventions: Lifestyle modifications. Lifestyle Modification: Dietary Sodium Restriction - Elder Abuse Suspicion Index EASI Reference Information: Bret BLANCO, Marilu Manuel, Nikky D, Aris Adorno.Development and validation of a tool to assist physicians identification of elder abuse: The Elder Abuse Suspicion Index (EASI ). Journal of Elder Abuse and Neglect, 2008; 20 (3): 276-300.
== END 2018-05-29 13:50 | disposition home or self-care (01) ==
LOC: ER 18:39 → MEDSURG 21:46
PROVIDERS: ADMIT Internal Medicine; ATTEND Internal Medicine
DX: J45.901 Unspecified asthma with (acute) exacerbation (principal); R51 Headache; G25.81 Restless legs syndrome; Z78.9 Other specified health status
CPT/HCPCS: 99285 ×2; 96376; 96374; 85025 ×2; 80048 ×2; 87400; 85027; 71046; 94640 ×5; 94762 ×2; 94660 ×2; 94644; 94645 ×2; 90686; G0378 ×4; J7512 ×2; J2060 ×2; 99217; 99220; 99226; J1650; J2930; J7613

== ENCOUNTER 2018-05-30 23:44 | Emergency (ER) | payer BC ==
[2018-05-30] MEDS ORDERED: IPRATROPIUM/ALBUTEROL (0.5MG/3MG) NEB INH ONE (23:54)
[2018-05-30] MEDS ORDERED: ALBUTEROL (0.5% CONCENTRATED) 2.5 MG/0.5 ML VIAL.NEB INH ONE (23:55)
[2018-05-30] MEDS ORDERED: METHYLPREDNISOLONE PF 125MG/VIAL IVP ONE (23:58)
--- NOTE | 2018-05-31 00:01 | Emergency Department Record ---
History of Present Illness - General Chief Complaint: Shortness of breath Stated Complaint: IRAJ Time Seen by Provider: 05/30/18 23:46 Source: Patient, Family Mode of Arrival: Ambulatory Limitations: No limitations - History of Present Illness Initial Comments: 47 yo female presents with continued wheezing, cough and shortness of breath since discharge yesterday. She was admitted with acute asthma exacerbation for 4 days. She states she was unable to fill her prescriptions yesterday. She has older inhalers she used today. She is still wheezing, coughing, and does not feel better. She does have a history of smoking. She does not have a PCP. MD Complaint: "Asthma attack", Cough, Shortness of breath -: Days(s) Severity: Moderate Quality: Other Consistency: Constant Improves With: Nothing Worsens With: Coughing Known History Of: Asthma Context: Recent URI Associated Symptoms: Cough Treatments Prior to Arrival: Bronchodilator (Old ) - Related Data Previous Rx's Medication Instructions Recorded Ropinirole HCl [Requip] 4 mg PO TID #15 tablet 04/17/17 Albuterol Sulfate 0.083% [Neb] 2.5 mg INH RESP.Q1H PRN #30 05/29/18 [Albuterol Sulfate] nebulization solution Albuterol Sulfate [Proair Hfa] 8.5 gm IH ASDIR PRN #10 inhaler 05/29/18 Fluticasone/Salmeterol [Advair 1 each IH BID #1 blst.w.dev 05/29/18 250-50 Diskus] Lorazepam [Ativan] 0.5 mg PO DAILY #7 tablet 05/29/18 Nystatin 1 each PO BID #1 powder.ea. 05/29/18 Prednisone [Prednisone 20Mg] 40 mg PO DAILYWM 3 Days #6 tab 05/29/18 Cephalexin [Keflex] 500 mg PO QID #28 cap 05/31/18 Allergies Allergy/AdvReac Type Severity Reaction Status Date / Time latex Allergy Unknown BLISTERS Verified 05/30/18 23:58 morphine Allergy Unknown RASH Verified 05/30/18 23:58 nitrofurantoin Allergy Unknown MUSCLE PAIN Verified 05/30/18 23:58 nitrofurantoin Allergy Unknown MUSCLE PAIN Verified 05/30/18 23:58 macrocrystalline dexamethasone [From Decadron] Allergy BEHAVIORAL Verified 05/30/18 23:58 CHANGES dexamethasone sod phosphate Allergy BEHAVIORAL Verified 05/30/18 23:58 [From Decadron] CHANGES duloxetine HCl Allergy BEHAVIORAL Verified 05/30/18 23:58 [From Cymbalta] CHANGES levofloxacin [From Levaquin] Allergy RASH Verified 05/30/18 23:58 metoclopramide HCl AdvReac HYPERSENSIT Verified 05/30/18 23:58 [From Reglan] IVITY Review of Systems Constitutional: Denies: Chills, Fever, Malaise, Weakness Eyes: Denies: Eye discharge ENT: Reports: Congestion Respiratory: Reports: Cough, Dyspnea, Wheezes Cardiovascular: Denies: Chest pain, Palpitations, Syncope Gastrointestinal: Denies: Abdominal pain, Diarrhea, Nausea, Vomiting Genitourinary: Denies: Dysuria Musculoskeletal: Denies: Arthralgia, Myalgia Skin: Denies: Bruising, Change in color, Rash Neurological: Denies: Headache Psychiatric: Denies: Anxiety Hematological/Lymphatic: Denies: Blood Clots, Easy bleeding, Easy bruising Past Medical History - SOCIAL HISTORY Smoking Status: Never smoker Drug Use: None - RESPIRATORY Hx Respiratory Disorders: Yes Hx Asthma: Yes Comment:: "vocal coord disorder" - CARDIOVASCULAR Hx Cardio Disorders: No - NEURO Hx Neuro Disorders: Yes Hx Seizures: Yes (2013) - GI Hx GI Disorders: Yes Hx Reflux: Yes Comment:: gastric bypass - Hx Genitourinary Disorders: No - ENDOCRINE Hx Endocrine Disorders: No - MUSCULOSKELETAL Hx Musculoskeletal Disorders: Yes Hx Arthritis: Yes Hx Fibromyalgia: Yes Comment:: RLS - PSYCH Hx Psych Problems: Yes Hx Anxiety: Yes - HEMATOLOGY/ONCOLOGY Hx Hematology/Oncology Disorders: No Family Medical History Hx Cancer: Mother Hx Heart Disease: Grandparents Physical Exam - General General Appearance: Alert, Oriented x3, Cooperative, No acute distress Limitations: No limitations - Head Head exam: Atraumatic, Normal inspection - Eye Eye exam: Normal appearance. negative: Conjunctival injection - ENT ENT exam: Normal exam, Mucous membranes moist Ear exam: Normal external inspection Nasal Exam: Normal inspection Mouth exam: Normal external inspection - Neck Neck exam: Normal inspection - Respiratory Respiratory exam: Decreased breath sounds, Prolonged expiratory, Rhonchi, Wheezes. negative: Normal lung sounds bilaterally - Cardiovascular Cardiovascular Exam: Normal rhythm, Normal heart sounds, Tachycardia - GI/Abdominal GI/Abdominal exam: Soft. negative: Tenderness - Rectal Rectal exam: Deferred - exam: Deferred - Extremities Extremities exam: Tenderness. negative: Normal inspection, Pedal edema Image of Full Body: 1 - erythema , tenderness in the AC at the site of prior IV - Back Back exam: Denies: CVA tenderness (R), CVA tenderness (L) - Neurological Neurological exam: Alert, Oriented X3 - Psychiatric Psychiatric exam: Normal affect, Normal mood - Skin Skin exam: Dry, Intact, Normal color, Warm Course Vital Signs 05/30/18 23:51 Temperature 98.8 F Pulse Rate [ 113 H Pulse Ox Probe] Respiratory 24 Rate Blood Pressure 153/101 [Left Arm] Pulse Ox 99 - Reevaluation(s) Reevaluation #1: EMR reviewed from yesterday's (05/29) DC Summary The patient was unable to get her prescriptions filled She additionally has some pain at an IV site from admission in the left AC 05/31/18 00:00 05/31/18 00:42 The labs were reviewed No acute changes. Improving chronic anemia. The patient was rechecked. Improved air exchange. Greatly improved wheezing. 05/31/18 00:50 Influenza are negative 05/31/18 00:50 05/31/18 01:06 The XR was reviewed. No acute infiltrate 05/31/18 01:11 Resting comfortably, HR 95. 98% on room air. 05/31/18 01:47 The patient continues to do well. HR 94 97% on room air At rest she has essentially clear lungs. She had some mild wheeze with coughing We discussed getting her prescriptions filled without fail She will be started on Keflex as well for the superfical small area of erythema She was provided and inhaler as well to ensure this time she has the medication she needs upon discharge. She has prescriptions ready at [facility] she just needs to pick them up. 05/31/18 01:52 Medical Decision Making - Lab Data Result diagrams: 05/31/18 00:10 05/31/18 00:10 Disposition Disposition: Discharge Clinical Impression: Asthma exacerbation, Cellulitis Disposition: Home, Self-Care Condition: (1) Good Instructions: Asthma (ED) Additional Instructions: Call the [facility] for a follow up appointment Fill your prescriptions today without fail Return to have the arm recheck if any pain or swelling Return if your wheezing returns with shortness of breath Return for an ultrasound Tuesday of the arm Prescriptions: Cephalexin [Keflex] 500 mg PO QID #28 cap Forms: Patient Portal Access Time of Disposition: 01:51 Quality - Quality Measures Quality Measures: N/A - Blood Pressure Screening Does Patient Have Any of the Following: No Blood Pressure Classification: Normal BP Reading Systolic Measurement: 102 Diastolic Measurement: 48 Screening for High Blood Pressure: < Normal BP, F/U Not Required > [G8783]
[2018-05-31] MEDS ORDERED: ALBUTEROL (0.5% CONCENTRATED) 2.5 MG/0.5 ML VIAL.NEB INH ONE (00:03)
[2018-05-31 00:22] LABS: HEMOGLOBIN 9.4 gm/dl (11.6-16.0); MEAN CELL VOLUME 85.8 fl (81-97); MEAN CORPUSCULAR HEMOGLOBIN 25.2 pg (27-33); MEAN CORPUSCULAR HGB CONC 29.4 g/dl (32-36); MEAN PLATELET VOLUME 8.6 fl (7.4-10.4); PLATELET COUNT 400 K/uL (130-400); RED BLOOD COUNT 3.73 M/uL (3.80-5.40); RED CELL DISTRIBUTION WIDTH 20.4 % (11.5-14.5); WHITE BLOOD COUNT W/O DIFF 6.8 K/uL (4.2-12.2)
[2018-05-31 00:29] LABS: BLOOD UREA NITROGEN 14 mg/dL (6-20); CREATININE 0.8 mg/dL (0.5-0.9); EST GLOMERULAR FILTRATION RATE > 60 mL/min
[2018-05-31 00:32] LABS: GLUCOSE,RANDOM 107 mg/dL (74-109)
[2018-05-31 00:45] LABS: INFLUENZA A NEGATIVE (NEGATIVE); INFLUENZA B NEGATIVE (NEGATIVE)
[2018-05-31] MEDS ORDERED: CEPHALEXIN 500 MG CAPSULE PO STA (00:49)
[2018-05-31 00:56] LABS: ANISOCYTOSIS 2+; MICROCYTOSIS 1+; PLATELET ESTIMATE NORMAL (NORMAL)
[2018-05-31] MEDS ORDERED: GUAIFENESIN/D-METH. 10 ML UDC PO ONE (01:27)
[2018-05-31] MEDS ORDERED: PREDNISONE 20 MG TAB PO ONE (01:45)
[2018-05-31] MEDS ORDERED: ALBUTEROL HFA 8 GM INHALER INH STA (01:45)
--- NOTE | 2018-05-31 14:33 | RADIOLOGY REPORT ---
EXAM: CHEST 1 VIEW HISTORY: DIFFICULTY IN BREATHING. TECHNIQUE: A portable AP upright view of the chest was performed. FINDINGS: Heart size is normal. The lung farmer are clear. No infiltrate or pleural effusion. The osseous structures are normal. IMPRESSION: NEGATIVE CHEST EXAMINATION. JOB NUMBER: [id number] MTDD
== END 2018-05-31 02:06 | disposition home or self-care (01) ==
LOC: ER 23:44
DX: J45.901 Unspecified asthma with (acute) exacerbation (principal); L03.113 Cellulitis of right upper limb
CPT/HCPCS: 99283; 99284; 80048; 87400; 85027; 71045; 94664; 94640; J7512; J2930

== ENCOUNTER 2018-06-08 21:03 | Emergency (ER) | payer BC ==
[2018-06-08] MEDS ORDERED: IPRATROPIUM/ALBUTEROL (0.5MG/3MG) NEB INH ONE (21:33)
[2018-06-08] MEDS ORDERED: METHYLPREDNISOLONE PF 125MG/VIAL IVP ONE (21:33)
[2018-06-08] MEDS ORDERED: LORAZEPAM 2 MG/ML VIAL IV ONE (21:39)
[2018-06-08] MEDS ORDERED: ALBUTEROL (0.5% CONCENTRATED) 2.5 MG/0.5 ML VIAL.NEB INH ONE (21:41)
[2018-06-08 22:06] LABS: BASO % 0.5 % (0-6); EOS % 3.9 % (0-6); GRAN % 59.9 % (47-80); HEMATOCRIT 30.1 % (35.0-47.0); HEMOGLOBIN 8.8 gm/dl (11.6-16.0); LYMPH % 24.6 % (16-45); MEAN CELL VOLUME 84.8 fl (81-97); MEAN CORPUSCULAR HEMOGLOBIN 24.7 pg (27-33); MEAN CORPUSCULAR HGB CONC 29.2 g/dl (32-36); MEAN PLATELET VOLUME 9.1 fl (7.4-10.4); MONO % 11.1 % (0-9); PLATELET COUNT 448 K/uL (130-400); RED BLOOD COUNT 3.55 M/uL (3.80-5.40); RED CELL DISTRIBUTION WIDTH 20.2 % (11.5-14.5); WHITE BLOOD COUNT W/O DIFF 5.9 K/uL (4.2-12.2)
[2018-06-08 22:19] LABS: BLOOD UREA NITROGEN 6 mg/dL (6-20); CREATININE 0.8 mg/dL (0.5-0.9); EST GLOMERULAR FILTRATION RATE > 60 mL/min
[2018-06-08 22:22] LABS: GLUCOSE,RANDOM 88 mg/dL (74-109)
[2018-06-08 22:27] LABS: NTpro B-NATRIURETIC PEPTIDE 57.35 pg/mL (<125)
[2018-06-08 22:29] LABS: INFLUENZA A NEGATIVE (NEGATIVE); INFLUENZA B NEGATIVE (NEGATIVE)
--- NOTE | 2018-06-08 22:38 | Emergency Department Record ---
History of Present Illness - General Chief Complaint: Cough Stated Complaint: COUGH Time Seen by Provider: 06/08/18 21:18 Source: Patient Mode of Arrival: Ambulatory Limitations: No limitations - History of Present Illness Initial Comments: pt here for sob and constant cough. she was hospitalized 05/26-05/29 for asthma. she was back on 05/30 for asthma. she is back tonight stating she is having a constant cough for days and cant rest. MD Complaint: "Asthma attack", Cough, Shortness of breath Onset/Timin Consistency: Constant Improves With: Bronchodilators Context: Recent illness Associated Symptoms: Cough Treatments Prior to Arrival: Bronchodilator - Related Data Previous Rx's Medication Instructions Recorded Ropinirole HCl [Requip] 4 mg PO TID #15 tablet 04/17/17 Albuterol Sulfate 0.083% [Neb] 2.5 mg INH RESP.Q1H PRN #30 05/29/18 [Albuterol Sulfate] nebulization solution Albuterol Sulfate [Proair Hfa] 8.5 gm IH ASDIR PRN #10 inhaler 05/29/18 Fluticasone/Salmeterol [Advair 1 each IH BID #1 blst.w.dev 05/29/18 250-50 Diskus] Lorazepam [Ativan] 0.5 mg PO DAILY #7 tablet 05/29/18 Nystatin 1 each PO BID #1 powder.ea. 05/29/18 Prednisone [Prednisone 20Mg] 40 mg PO DAILYWM 3 Days #6 tab 05/29/18 Cephalexin [Keflex] 500 mg PO QID #28 cap 05/31/18 Azithromycin [Zithromax] 250 mg PO DAILY #4 tab 06/08/18 Prednisone [Prednisone 20Mg] 20 mg PO Q12HR #4 tab 06/08/18 Promethazine HCl/Codeine 5 - 10 ml PO .AT BEDTIME PRN #118 06/08/18 [Phenergan W/Codeine] ml Allergies Allergy/AdvReac Type Severity Reaction Status Date / Time latex Allergy Unknown BLISTERS Verified 05/30/18 23:58 morphine Allergy Unknown RASH Verified 05/30/18 23:58 nitrofurantoin Allergy Unknown MUSCLE PAIN Verified 05/30/18 23:58 nitrofurantoin Allergy Unknown MUSCLE PAIN Verified 05/30/18 23:58 macrocrystalline dexamethasone [From Decadron] Allergy BEHAVIORAL Verified 05/30/18 23:58 CHANGES dexamethasone sod phosphate Allergy BEHAVIORAL Verified 05/30/18 23:58 [From Decadron] CHANGES duloxetine HCl Allergy BEHAVIORAL Verified 05/30/18 23:58 [From Cymbalta] CHANGES levofloxacin [From Levaquin] Allergy RASH Verified 05/30/18 23:58 metoclopramide HCl AdvReac HYPERSENSIT Verified 05/30/18 23:58 [From Reglan] IVITY Travel Screening - Travel/Exposure Within Last 30 Days Have you traveled within the last 30 days?: No - Travel Symptoms Symptom Screening: None Review of Systems Reviewed: No additional complaints except as noted below Constitutional: Reports: As per HPI. Denies: Chills, Fever, Malaise, Night sweats, Weakness, Weight change Eyes: Reports: As per HPI. Denies: Eye discharge, Eye pain, Photophobia, Vision change ENT: Reports: As per HPI. Denies: Congestion, Dental pain, Ear pain, Epistaxis , Hearing loss, Throat pain Respiratory: Reports: As per HPI, Cough, Dyspnea. Denies: Hemoptysis, Stridor, Wheezes Cardiovascular: Reports: As per HPI. Denies: Arrhythmia, Chest pain, Dyspnea on exertion, Edema, Murmurs, Orthopnea, Palpitations, Paroxysmal nocturnal dyspnea, Rheumatic Fever, Syncope Endocrine: Reports: As per HPI. Denies: Fatigue, Heat or cold intolerance, Polydipsia, Polyuria Gastrointestinal: Reports: As per HPI. Denies: Abdominal pain, Constipation, Diarrhea, Hematemesis, Hematochezia, Melena, Nausea, Vomiting Genitourinary: Reports: As per HPI. Denies: Abnormal menses, Discharge, Dyspareunia, Dysuria, Frequency, Hematuria, Incontinence, Retention, Urgency Musculoskeletal: Reports: As per HPI. Denies: Arthralgia, Back pain, Gout, Joint swelling, Myalgia, Neck pain Skin: Reports: As per HPI. Denies: Bruising, Change in color, Change in hair/ nails, Lesions, Pruritus, Rash Neurological: Reports: As per HPI. Denies: Abnormal gait, Confusion, Headache, Numbness, Paresthesias, Seizure, Tingling, Tremors, Vertigo, Weakness Psychiatric: Reports: As per HPI. Denies: Anxiety, Auditory hallucinations, Depression, Homicidal thoughts, Suicidal thoughts, Visual hallucinations Hematological/Lymphatic: Reports: As per HPI. Denies: Anemia, Blood Clots, Easy bleeding, Easy bruising, Swollen glands Past Medical History - SOCIAL HISTORY Smoking Status: Never smoker Alcohol Use: None Drug Use: None - RESPIRATORY Hx Respiratory Disorders: Yes Hx Asthma: Yes Comment:: "vocal coord disorder" - CARDIOVASCULAR Hx Cardio Disorders: No - NEURO Hx Neuro Disorders: Yes Hx Seizures: Yes (2013) - GI Hx GI Disorders: Yes Hx Reflux: Yes Comment:: gastric bypass - Hx Genitourinary Disorders: No - ENDOCRINE Hx Endocrine Disorders: No - MUSCULOSKELETAL Hx Musculoskeletal Disorders: Yes Hx Arthritis: Yes Hx Fibromyalgia: Yes Comment:: RLS - PSYCH Hx Psych Problems: Yes Hx Anxiety: Yes - HEMATOLOGY/ONCOLOGY Hx Hematology/Oncology Disorders: No Family Medical History Any Significant Family History?: Yes Hx Cancer: Mother Hx Heart Disease: Grandparents Physical Exam - General General Appearance: Alert, Oriented x3, Cooperative, Mild distress - Head Head exam: Normal inspection - Eye Eye exam: Normal appearance, PERRL, EOMI Pupils: Normal accommodation - ENT ENT exam: Normal exam, Mucous membranes moist, Normal external ear exam, Normal orophraynx Ear exam: Normal external inspection. negative: External canal tenderness Nasal Exam: Normal inspection. negative: Discharge, Sinus tenderness Mouth exam: Normal external inspection, Tongue normal Teeth exam: Normal inspection. negative: Dental caries Throat exam: Normal inspection. negative: Tonsillar erythema, Tonsillar exudate - Neck Neck exam: Normal inspection, Full ROM. negative: Tenderness - Respiratory Respiratory exam: Respiratory distress, Wheezes - Cardiovascular Cardiovascular Exam: Normal rhythm, Normal heart sounds, Tachycardia - GI/Abdominal GI/Abdominal exam: Soft, Normal bowel sounds. negative: Tenderness - Rectal Rectal exam: Deferred - exam: Deferred - Extremities Extremities exam: Normal inspection, Full ROM, Normal capillary refill. negative: Tenderness - Back Back exam: Reports: Normal inspection, Full ROM. Denies: Muscle spasm, Rash noted, Tenderness - Neurological Neurological exam: Alert, Normal gait, Oriented X3, Reflexes normal - Psychiatric Psychiatric exam: Normal affect, Normal mood - Skin Skin exam: Dry, Intact, Normal color, Warm Course Vital Signs 06/08/18 06/08/18 06/08/18 21:07 21:44 22:26 Temperature 98.4 F Pulse Rate 122 H 94 H Pulse Rate [ 103 H Pulse Ox Probe] Respiratory 24 20 24 Rate Blood Pressure 133/85 Blood Pressure 109/63 [Right Arm] Pulse Ox 98 98 - Reevaluation(s) Reevaluation #1: 06/08/18 23:34 pt feels better Reevaluation #2: 06/08/18 23:36 pertussis pending Medical Decision Making - Lab Data Result diagrams: 06/08/18 21:50 06/08/18 21:50 Lab Results 06/08/18 06/08/18 06/08/18 Range/Units 21:50 21:50 22:10 WBC 5.9 (4.2-12.2) K/uL RBC 3.55 L (3.80-5.40) M/uL Hgb 8.8 L (11.6-16.0) gm/dl Hct 30.1 L (35.0-47.0) % MCV 84.8 (81-97) fl MCH 24.7 L (27-33) pg MCHC 29.2 L (32-36) g/dl RDW 20.2 H (11.5-14.5) % Plt Count 448 H (130-400) K/uL MPV 9.1 (7.4-10.4) fl Gran % 59.9 (47-80) % Lymphocytes % 24.6 (16-45) % Monocytes % 11.1 H (0-9) % Eosinophils % 3.9 (0-6) % Basophils % 0.5 (0-6) % Sodium 139 (136-145) mmol/L Potassium 3.8 (3.4-4.5) mmol/L Chloride 103 (98-107) mmol/L Carbon Dioxide 21.0 L (22-29) mmol/L Anion Gap 15.0 (7-16) BUN 6 (6-20) mg/dL Creatinine 0.8 (0.5-0.9) mg/dL Estimated GFR > 60 mL/min Random Glucose 88 (74-109) mg/dL Calcium 8.8 (8.6-10.0) mg/dL NT-Pro-B Natriuret Pep 57.35 (<125) pg/mL Influenza Type A Ag Negative (NEGATIVE) Influenza Type B Ag Negative (NEGATIVE) Disposition Disposition: Discharge Clinical Impression: Bronchitis Asthma Qualifiers: Asthma severity: moderate Asthma persistence: persistent Asthma complication type: with acute exacerbation Qualified Code(s): J45.41 - Moderate persistent asthma with (acute) exacerbation Asthma exacerbation Qualifiers: Asthma severity: moderate Asthma persistence: persistent Qualified Code(s): J45.41 - Moderate persistent asthma with (acute) exacerbation Disposition: Home, Self-Care Condition: (1) Good Instructions: Asthma (ED), Acute Bronchitis (ED) Additional Instructions: follow up with family doctor. return sooner if worse. sleep propped up or in a recliner. Prescriptions: Prednisone [Prednisone 20Mg] 20 mg PO Q12HR #4 tab Azithromycin [Zithromax] 250 mg PO DAILY #4 tab Promethazine HCl/Codeine [Phenergan W/Codeine] 5 - 10 ml PO .AT BEDTIME PRN # 118 ml PRN Reason: Cough Forms: Patient Portal Access Quality - Quality Measures Quality Measures: Adult Bronchitis (18-64yr) - Adult Bronchitis Quality Measure: Measure #116: Avoidance of ABX w/Adult Bronchitis Is patient being admitted: No Avoidance of ABX w/Bronchitis: ABX prescribed or dispensed Medical Reason For Rx: Bacterial infection - Blood Pressure Screening Does Patient Have Any of the Following: No Blood Pressure Classification: Pre-Hypertensive BP Reading Systolic Measurement: 133 Diastolic Measurement: 85 Screening for High Blood Pressure: < Pre-Hypertensive BP, F/U Documented > [ G8950] Pre-Hypertensive Follow-up Interventions: Follow-up with rescreen every year.
[2018-06-08] MEDS ORDERED: PROMETHAZINE W/CODEINE 10ML UD PO ONE (22:40)
[2018-06-08] MEDS ORDERED: AZITHROMYCIN 500 MG TABLET PO ONE (23:34)
--- NOTE | 2018-06-09 10:38 | RADIOLOGY REPORT ---
EXAM: CHEST, TWO VIEWS HISTORY: COUGH. TECHNIQUE: Two views of the chest are obtained. FINDINGS: The lungs are clear. The cardiac size and pulmonary vascularity are normal. IMPRESSION: NEGATIVE CHEST EXAMINATION. JOB NUMBER: [id number] [facility]
== END 2018-06-08 23:53 | disposition home or self-care (01) ==
LOC: ER 21:03
DX: J45.41 Moderate persistent asthma with (acute) exacerbation (principal); J20.9 Acute bronchitis, unspecified
CPT/HCPCS: 99284 ×2; 96374; 96375; 85025; 80048; 87400; 83880; 71046; 94640; J2060; J2930

== ENCOUNTER 2018-10-01 01:13 | Emergency (ER) | payer BC ==
--- NOTE | 2018-10-01 01:31 | Emergency Department Record ---
History of Present Illness - General Chief Complaint: General Stated Complaint: MEDICATION REFILL Time Seen by Provider: 10/01/18 01:26 Source: Patient Mode of Arrival: Ambulatory Limitations: No limitations - History of Present Illness Initial comments: 48 yo female presents to ED for evaluation of her restless leg symptoms as she is out of her Requip. Patient reports that she normally takes her medication 3/ times daily but has reduced her daily use to 1/day to make them last until she could get a new prescription. Patient reports that she has been unable to sleep without her medication. Onset/Timin -: Days(s) Radiation: Non-Radiating Consistency: Constant Improves with: Medication Worsens with: None Associated Symptoms: Denies other symptoms Treatments Prior to Arrival: None - [place] Coma Scale Eye Response: (4) Open spontaneously Motor Response: (6) Obeys commands Verbal Response: (5) Oriented Reynaldo Total: 15 - Related Data Previous Rx's Medication Instructions Recorded Ropinirole HCl [Requip] 4 mg PO TID #15 tablet 04/17/17 Albuterol Sulfate 0.083% [Neb] 2.5 mg INH RESP.Q1H PRN #30 05/29/18 [Albuterol Sulfate] nebulization solution Albuterol Sulfate [Proair Hfa] 8.5 gm IH ASDIR PRN #10 inhaler 05/29/18 Fluticasone/Salmeterol [Advair 1 each IH BID #1 blst.w.dev 05/29/18 250-50 Diskus] Lorazepam [Ativan] 0.5 mg PO DAILY #7 tablet 05/29/18 Nystatin 1 each PO BID #1 powder.ea. 05/29/18 Prednisone [Prednisone 20Mg] 40 mg PO DAILYWM 3 Days #6 tab 05/29/18 Cephalexin [Keflex] 500 mg PO QID #28 cap 05/31/18 Azithromycin [Zithromax] 250 mg PO DAILY #4 tab 06/08/18 Prednisone [Prednisone 20Mg] 20 mg PO Q12HR #4 tab 06/08/18 Promethazine HCl/Codeine 5 - 10 ml PO .AT BEDTIME PRN #118 06/08/18 [Phenergan W/Codeine] ml Ropinirole HCl [Requip] 4 mg PO DAILY #10 tablet 10/01/18 Allergies Allergy/AdvReac Type Severity Reaction Status Date / Time latex Allergy Unknown BLISTERS Verified 05/30/18 23:58 morphine Allergy Unknown RASH Verified 05/30/18 23:58 nitrofurantoin Allergy Unknown MUSCLE PAIN Verified 05/30/18 23:58 nitrofurantoin Allergy Unknown MUSCLE PAIN Verified 05/30/18 23:58 macrocrystalline dexamethasone [From Decadron] Allergy BEHAVIORAL Verified 05/30/18 23:58 CHANGES dexamethasone sod phosphate Allergy BEHAVIORAL Verified 05/30/18 23:58 [From Decadron] CHANGES duloxetine HCl Allergy BEHAVIORAL Verified 05/30/18 23:58 [From Cymbalta] CHANGES levofloxacin [From Levaquin] Allergy RASH Verified 05/30/18 23:58 metoclopramide HCl AdvReac HYPERSENSIT Verified 05/30/18 23:58 [From Reglan] IVITY Travel Screening - Travel/Exposure Within Last 30 Days Have you traveled within the last 30 days?: No - Travel/Exposure Within Last Year Have you traveled outside the [place] in the last year?: No - Additonal Travel Details Have you been exposed to anyone with a communicable illness?: No - Travel Symptoms Symptom Screening: None Review of Systems Constitutional: Denies: Chills, Fever, Malaise, Night sweats Eyes: Denies: Eye discharge, Eye pain ENT: Denies: Congestion, Ear pain Respiratory: Denies: Cough, Dyspnea Cardiovascular: Denies: Chest pain, Dyspnea on exertion Endocrine: Denies: Fatigue, Heat or cold intolerance Gastrointestinal: Denies: Abdominal pain, Nausea, Vomiting Genitourinary: Denies: Incontinence, Retention Musculoskeletal: Reports: Myalgia. Denies: Arthralgia, Back pain Skin: Denies: Bruising, Change in color Neurological: Denies: Abnormal gait, Confusion, Headache, Seizure Psychiatric: Denies: Anxiety Hematological/Lymphatic: Denies: Anemia, Blood Clots Past Medical History - SOCIAL HISTORY Smoking Status: Never smoker - RESPIRATORY Hx Respiratory Disorders: Yes Hx Asthma: Yes Comment:: "vocal coord disorder" - CARDIOVASCULAR Hx Cardio Disorders: No - NEURO Hx Neuro Disorders: Yes Hx Seizures: Yes (2013) - GI Hx GI Disorders: Yes Hx Reflux: Yes Comment:: gastric bypass - Hx Genitourinary Disorders: No - ENDOCRINE Hx Endocrine Disorders: No - MUSCULOSKELETAL Hx Musculoskeletal Disorders: Yes Hx Arthritis: Yes Hx Fibromyalgia: Yes Comment:: RLS - PSYCH Hx Psych Problems: Yes Hx Anxiety: Yes - HEMATOLOGY/ONCOLOGY Hx Hematology/Oncology Disorders: No Family Medical History Any Significant Family History?: No Hx Cancer: Mother Hx Heart Disease: Grandparents Physical Exam - General General Appearance: Alert, Oriented x3, Cooperative, No acute distress Limitations: No limitations - Head Head exam: Atraumatic, Normocephalic, Normal inspection Head exam detail: negative: Abrasion, Contusion, Hernández's sign, General tenderness, Hematoma, Laceration - Eye Eye exam: Normal appearance. negative: Conjunctival injection, Periorbital swelling, Periorbital tenderness, Scleral icterus - ENT Ear exam: negative: Auricular hematoma, Auricular trauma Nasal Exam: negative: Active bleeding, Discharge, Dried blood, Foreign body Mouth exam: negative: Drooling, Laceration, Muffled voice, Tongue elevation - Neck Neck exam: Normal inspection. negative: Meningismus, Tenderness - Respiratory Respiratory exam: Normal lung sounds bilaterally. negative: Rales, Respiratory distress, Rhonchi, Stridor - Cardiovascular Cardiovascular Exam: Regular rate, Normal rhythm, Normal heart sounds - GI/Abdominal GI/Abdominal exam: Soft. negative: Rebound, Rigid, Tenderness - Rectal Rectal exam: Deferred - exam: Deferred - Extremities Extremities exam: Normal inspection. negative: Pedal edema, Tenderness - Back Back exam: Denies: CVA tenderness (R), CVA tenderness (L) - Neurological Neurological exam: Alert, Normal gait, Oriented X3 - Psychiatric Psychiatric exam: Anxious - Skin Skin exam: Normal color. negative: Abrasion Type of lesion: negative: abrasion Course Vital Signs 10/01/18 10/01/18 01:18 01:19 Temperature 98.3 F 98.3 F Pulse Rate [ 105 H Pulse Ox Probe] Respiratory 24 Rate Blood Pressure 133/87 [Left Arm] Pulse Ox 98 - Reevaluation(s) Reevaluation #1: 10/01/18 01:35 Will refill the patient's prescription for #10 tablets. Patient appears stable for discharge at this time. Disposition Disposition: Discharge Clinical Impression: Medication refill Disposition: Home, Self-Care Condition: (2) Stable Instructions: Medicine Refill (ED) Additional Instructions: Return to ED if your symptoms worsen or if you have any concerns. Requip as directed. Follow-up with your family doctor in 1-3 days as directed. Prescriptions: Ropinirole HCl [Requip] 4 mg PO DAILY #10 tablet Forms: Patient Portal Access Time of Disposition: 01:30 Quality - Quality Measures Quality Measures: N/A - Blood Pressure Screening Does Patient Have Any of the Following: No Blood Pressure Classification: Pre-Hypertensive BP Reading Systolic Measurement: 133 Diastolic Measurement: 87 Screening for High Blood Pressure: < Pre-Hypertensive BP, F/U Documented > [ G8950] Pre-Hypertensive Follow-up Interventions: Referral to alternative/primary care provider.
== END 2018-10-01 01:35 | disposition home or self-care (01) ==
LOC: ER 01:13
DX: Z76.0 Encounter for issue of repeat prescription (principal); G25.81 Restless legs syndrome
CPT/HCPCS: 99282

== ENCOUNTER 2018-10-08 21:30 | Emergency (ER) | payer BC ==
[2018-10-08] MEDS ORDERED: IPRATROPIUM/ALBUTEROL (0.5MG/3MG) NEB INH ONE (21:38)
[2018-10-08] MEDS ORDERED: ALBUTEROL (0.5% CONCENTRATED) 2.5 MG/0.5 ML VIAL.NEB INH ONE (21:38)
[2018-10-08] MEDS ORDERED: METHYLPREDNISOLONE PF 125MG/VIAL IVP ONE (21:45)
--- NOTE | 2018-10-08 21:49 | Emergency Department Record ---
History of Present Illness - General Chief Complaint: Asthma Stated Complaint: ASTHMA ATTK Time Seen by Provider: 10/08/18 21:45 Source: Patient Mode of Arrival: Ambulatory Limitations: No limitations - History of Present Illness Initial Comments: 48 yo female presents to ED for evaluation of "asthma attack", reports symptoms began 30 minutes prior to arrival. Patient reports using her albuterol inhaler x 2 prior to arrival without improvement. Patient denies fevers, chills, or productive cough symptoms. Patient denies recent illness prior to the onset of her symptoms. MD Complaint: "Asthma attack" Onset/Timin -: Hour(s) Asthma History: Childhood onset Severity: Moderate Context: None known Associated Symptoms: None - Related Data Current Asthma Therapy: Inhaled bronchodilator Previous Rx's Medication Instructions Recorded Ropinirole HCl [Requip] 4 mg PO TID #15 tablet 04/17/17 Albuterol Sulfate 0.083% [Neb] 2.5 mg INH RESP.Q1H PRN #30 05/29/18 [Albuterol Sulfate] nebulization solution Albuterol Sulfate [Proair Hfa] 8.5 gm IH ASDIR PRN #10 inhaler 05/29/18 Fluticasone/Salmeterol [Advair 1 each IH BID #1 blst.w.dev 05/29/18 250-50 Diskus] Lorazepam [Ativan] 0.5 mg PO DAILY #7 tablet 05/29/18 Azithromycin [Zithromax] 250 mg PO DAILY #4 tab 06/08/18 Prednisone [Prednisone 20Mg] 20 mg PO TID #12 tab 10/08/18 Allergies Allergy/AdvReac Type Severity Reaction Status Date / Time latex Allergy Unknown BLISTERS Verified 05/30/18 23:58 morphine Allergy Unknown RASH Verified 05/30/18 23:58 nitrofurantoin Allergy Unknown MUSCLE PAIN Verified 05/30/18 23:58 nitrofurantoin Allergy Unknown MUSCLE PAIN Verified 05/30/18 23:58 macrocrystalline dexamethasone [From Decadron] Allergy BEHAVIORAL Verified 05/30/18 23:58 CHANGES dexamethasone sod phosphate Allergy BEHAVIORAL Verified 05/30/18 23:58 [From Decadron] CHANGES duloxetine HCl Allergy BEHAVIORAL Verified 05/30/18 23:58 [From Cymbalta] CHANGES levofloxacin [From Levaquin] Allergy RASH Verified 05/30/18 23:58 metoclopramide HCl AdvReac HYPERSENSIT Verified 05/30/18 23:58 [From [facility]] IVITY Travel Screening - Travel/Exposure Within Last 30 Days Have you traveled within the last 30 days?: No Review of Systems Constitutional: Denies: Chills, Fever, Malaise, Night sweats Eyes: Denies: Eye discharge, Eye pain ENT: Denies: Congestion, Ear pain, Epistaxis Respiratory: Reports: Dyspnea, Wheezes. Denies: Cough Cardiovascular: Denies: Chest pain, Dyspnea on exertion, Palpitations Endocrine: Denies: Fatigue, Heat or cold intolerance Gastrointestinal: Denies: Abdominal pain, Nausea, Vomiting Genitourinary: Denies: Incontinence, Retention Musculoskeletal: Denies: Arthralgia, Back pain Skin: Denies: Bruising, Change in color Neurological: Denies: Abnormal gait, Confusion, Headache, Seizure Psychiatric: Denies: Anxiety Hematological/Lymphatic: Denies: Anemia, Blood Clots Past Medical History - SOCIAL HISTORY Smoking Status: Never smoker Alcohol Use: None Drug Use: None - RESPIRATORY Hx Respiratory Disorders: Yes Hx Asthma: Yes Comment:: "vocal coord disorder" - CARDIOVASCULAR Hx Cardio Disorders: No - NEURO Hx Neuro Disorders: Yes Hx Seizures: Yes (2013) - GI Hx GI Disorders: Yes Hx Reflux: Yes Comment:: gastric bypass - Hx Genitourinary Disorders: No - ENDOCRINE Hx Endocrine Disorders: No - MUSCULOSKELETAL Hx Musculoskeletal Disorders: Yes Hx Arthritis: Yes Hx Fibromyalgia: Yes Comment:: RLS - PSYCH Hx Psych Problems: Yes Hx Anxiety: Yes - HEMATOLOGY/ONCOLOGY Hx Hematology/Oncology Disorders: No Family Medical History Any Significant Family History?: Yes Hx Cancer: Mother Hx Heart Disease: Grandparents Physical Exam - General General Appearance: Alert, Oriented x3, Cooperative, Moderate distress Limitations: No limitations - Head Head exam: Atraumatic, Normocephalic, Normal inspection Head exam detail: negative: Abrasion, Contusion, Hernández's sign, General tenderness, Hematoma, Laceration - Eye Eye exam: Normal appearance. negative: Conjunctival injection, Periorbital swelling, Periorbital tenderness, Scleral icterus - ENT Ear exam: negative: Auricular hematoma, Auricular trauma Nasal Exam: negative: Active bleeding, Discharge, Dried blood, Foreign body Mouth exam: negative: Drooling, Laceration, Muffled voice, Tongue elevation - Neck Neck exam: Normal inspection. negative: Meningismus, Tenderness - Respiratory Respiratory exam: Prolonged expiratory, Wheezes. negative: Rales, Respiratory distress, Rhonchi, Stridor - Cardiovascular Cardiovascular Exam: Normal rhythm, Normal heart sounds, Tachycardia - GI/Abdominal GI/Abdominal exam: Soft. negative: Rebound, Rigid, Tenderness - Rectal Rectal exam: Deferred - exam: Deferred - Extremities Extremities exam: Normal inspection. negative: Pedal edema, Tenderness - Back Back exam: Denies: CVA tenderness (R), CVA tenderness (L) - Neurological Neurological exam: Alert, Normal gait, Oriented X3 - Psychiatric Psychiatric exam: Normal affect, Normal mood - Skin Skin exam: Normal color. negative: Abrasion Type of lesion: negative: abrasion Course Vital Signs 10/08/18 21:42 Pulse Rate 115 H Respiratory 28 H Rate Pulse Ox 99 - Reevaluation(s) Reevaluation #1: 10/08/18 22:50 Patient was reassessed and reports that her symptoms are significantly improved. Patient appears stable for discharge at this time with Prednisone as directed. Disposition Disposition: Discharge Clinical Impression: Asthma exacerbation Qualifiers: Asthma severity: moderate Asthma persistence: unspecified Qualified Code(s): J45.901 - Unspecified asthma with (acute) exacerbation Disposition: Home, Self-Care Condition: (2) Stable Instructions: Asthma (ED) Additional Instructions: Return to ED if your symptoms worsen or if you have any concerns. Prednisone as directed. Follow-up with your family doctor in 3-5 days as directed. Prescriptions: Prednisone [Prednisone 20Mg] 20 mg PO TID #12 tab Forms: Patient Portal Access Time of Disposition: 22:51 Quality - Quality Measures Quality Measures: N/A - Blood Pressure Screening Does Patient Have Any of the Following: No Blood Pressure Classification: Normal BP Reading Systolic Measurement: 108 Diastolic Measurement: 57 Screening for High Blood Pressure: < Normal BP, F/U Not Required > [G8783]
== END 2018-10-08 23:01 | disposition home or self-care (01) ==
LOC: ER 21:30
DX: J45.901 Unspecified asthma with (acute) exacerbation (principal)
CPT/HCPCS: 94640; 96374; 99284; J2930

== ENCOUNTER 2018-12-04 21:39 | Emergency (ER) | payer BC ==
[2018-12-04] MEDS ORDERED: KETOROLAC 30 MG/ML VIAL IM ONE (21:47)
--- NOTE | 2018-12-04 21:49 | Emergency Department Record ---
History of Present Illness - General Chief Complaint: Ankle/Foot Injury Stated Complaint: ANKLE INJURY Time Seen by Provider: 12/04/18 21:43 Source: Patient, Family Mode of Arrival: Wheelchair Limitations: No limitations - History of Present Illness Initial Comments: The patient was walking and rolled her R ankle accidentally. She then had severe pain and has been unable to walk on it. The patient states she has had a break in that ankle in the past. The patient denies any other inuries. MD Complaint: Ankle injury Onset/Timin -: Hour(s) - Related Data Previous Rx's Medication Instructions Recorded Ropinirole HCl [Requip] 4 mg PO TID #15 tablet 04/17/17 Albuterol Sulfate 0.083% [Neb] 2.5 mg INH RESP.Q1H PRN #30 05/29/18 [Albuterol Sulfate] nebulization solution Albuterol Sulfate [Proair Hfa] 8.5 gm IH ASDIR PRN #10 inhaler 05/29/18 Fluticasone/Salmeterol [Advair 1 each IH BID #1 blst.w.dev 05/29/18 250-50 Diskus] Lorazepam [Ativan] 0.5 mg PO DAILY #7 tablet 05/29/18 Azithromycin [Zithromax] 250 mg PO DAILY #4 tab 06/08/18 Prednisone [Prednisone 20Mg] 20 mg PO TID #12 tab 10/08/18 Hydrocodone/Acetaminophen [[place] 1 each PO QID #12 tablet 12/04/18 5-325 Tablet] Allergies Allergy/AdvReac Type Severity Reaction Status Date / Time latex Allergy Unknown BLISTERS Verified 05/30/18 23:58 morphine Allergy Unknown RASH Verified 05/30/18 23:58 nitrofurantoin Allergy Unknown MUSCLE PAIN Verified 05/30/18 23:58 nitrofurantoin Allergy Unknown MUSCLE PAIN Verified 05/30/18 23:58 macrocrystalline dexamethasone [From Decadron] Allergy BEHAVIORAL Verified 05/30/18 23:58 CHANGES dexamethasone sod phosphate Allergy BEHAVIORAL Verified 05/30/18 23:58 [From Decadron] CHANGES duloxetine HCl Allergy BEHAVIORAL Verified 05/30/18 23:58 [From Cymbalta] CHANGES levofloxacin [From Levaquin] Allergy RASH Verified 05/30/18 23:58 metoclopramide HCl AdvReac HYPERSENSIT Verified 05/30/18 23:58 [From Reglan] IVITY Review of Systems Constitutional: Denies: Chills, Fever Past Medical History - SOCIAL HISTORY Smoking Status: Never smoker Alcohol Use: None Drug Use: None - RESPIRATORY Hx Respiratory Disorders: Yes Hx Asthma: Yes Comment:: "vocal cord disorder" - CARDIOVASCULAR Hx Cardio Disorders: No - NEURO Hx Neuro Disorders: Yes Hx Seizures: Yes (2013) - GI Hx GI Disorders: Yes Hx Reflux: Yes Comment:: gastric bypass - Hx Genitourinary Disorders: No - ENDOCRINE Hx Endocrine Disorders: No - MUSCULOSKELETAL Hx Musculoskeletal Disorders: Yes Hx Arthritis: Yes Hx Fibromyalgia: Yes Comment:: RLS - PSYCH Hx Psych Problems: Yes Hx Anxiety: Yes - HEMATOLOGY/ONCOLOGY Hx Hematology/Oncology Disorders: No Family Medical History Any Significant Family History?: Yes Hx Cancer: Mother Hx Heart Disease: Grandparents Physical Exam - General General Appearance: Alert, Moderate distress (The patient is presently crying uncontrollably due to the pain. She appears very anxious.) - Extremities Extremities exam: Normal capillary refill, Tenderness (There is R ankle tenderness over the lateral malleolus that is clearly out of proportion to the exam findings.). negative: Normal inspection (There is very mild swelling at the R lateral malleolus with tenderness out of proportion to the exam. There is no bruising presently. ), Full ROM (The patient will not allow me to examine the ankle properly.) Course Vital Signs 12/04/18 21:45 Pulse Rate [ 129 H Left] Respiratory 24 Rate Blood Pressure 123/106 [Left] Pulse Ox 98 - Reevaluation(s) Reevaluation #1: The ankle does appear more swollen at this time and the xrays do appear to demonstrate a mild avulsion fx of the tip of the distal R lateral malleolus. There is evidence of the old bimalleolar fx but no acute findings in that area. Do to that fact we will place the patient on Lincoln for pain and have her non weight bearing on crutches with a referral to Dr. Carlson in the [facility]. 12/04/18 22:31 Reevaluation #2: The patient did calm down a good bit and I was able to re-examine the ankle better. There is no anterior drawer and the joint does appear stable. Due to that fact we will place the patient in a walking boot but she is to be non- weight bearing until she see's her Orthopedic doctor. 12/04/18 22:40 Reevaluation #3: The patient is doing a lot better at this time. She is MUCH more calm and states the pain is MUCH improved. She also states she is ready for home. 12/04/18 23:01 Medical Decision Making - Data Complexity MDM Data: X-Ray Ordered and/or Reviewed - Radiology Data Radiology results: Report reviewed (R ankle: Avulsion fx tip of the distal lateral malleolus.) Disposition Disposition: Discharge Clinical Impression: Ankle fracture, right Qualifiers: Encounter type: initial encounter Fracture type: closed Qualified Code(s): S82.891A - Other fracture of right lower leg, initial encounter for closed fracture Disposition: Home, Self-Care Condition: (2) Stable Instructions: Ankle Fracture (ED) Additional Instructions: Please ice and elevate the R ankle when possible and use the walking boot and crutches at all times. Do not walk on the ankle until evaluated by Dr. Carlson in the [facility]. Take Lincoln for pain as directed. Prescriptions: Hydrocodone/Acetaminophen [[place] 5-325 Tablet] 1 each PO QID #12 tablet Referrals: [facility] [Provider Group] Forms: Patient Portal Access Time of Disposition: 22:36 Quality - Quality Measures Quality Measures: N/A - Blood Pressure Screening View Details: Yes Does Patient Have Any of the Following: No Blood Pressure Classification: Pre-Hypertensive BP Reading Systolic Measurement: 102 Diastolic Measurement: 80 Screening for High Blood Pressure: < Pre-Hypertensive BP, F/U Documented > [G8950] Pre-Hypertensive Follow-up Interventions: Referral to alternative/primary care provider.
[2018-12-04] MEDS ORDERED: HYDROCODONE/APAP 5/325MG TABLET PO ONE ×2 (22:27→22:36)
== END 2018-12-04 23:08 | disposition home or self-care (01) ==
LOC: ER 21:39
DX: S82.61XA Displaced fracture of lateral malleolus of right fibula, initial encounter for closed fracture (principal); X50.0XXA Overexertion from strenuous movement or load, initial encounter; Y93.39 Activity, other involving climbing, rappelling and jumping off
CPT/HCPCS: 99283; 96372; 99284; 73610; J1885

== ENCOUNTER 2019-01-17 21:09 | Emergency (ER) | payer BC ==
[2019-01-17] MEDS ORDERED: IPRATROPIUM/ALBUTEROL (0.5MG/3MG) NEB INH ONE (21:21)
[2019-01-17] MEDS ORDERED: LORAZEPAM 2 MG/ML VIAL IV ONE (21:34)
[2019-01-17 22:08] LABS: ABSOLUTE NEUTROPHIL COUNT 3.98; BASO % 0.9 % (0-6); EOS % 3.9 % (0-6); HEMATOCRIT 31.7 % (35.0-47.0); HEMOGLOBIN 9.7 gm/dl (11.6-16.0); LYMPH % 23.7 % (16-45); MEAN CELL VOLUME 76.2 fl (81-97); MEAN CORPUSCULAR HEMOGLOBIN 23.3 pg (27-33); MEAN PLATELET VOLUME 9.1 fl (7.4-10.4); MONO % 9.5 % (0-9); PLATELET COUNT 404 K/uL (130-400); RED BLOOD COUNT 4.16 M/uL (3.80-5.40); WHITE BLOOD COUNT W/O DIFF 6.4 K/uL (4.2-12.2)
[2019-01-17 22:17] LABS: MEAN CORPUSCULAR HGB CONC 30.6 g/dl (32-36); RED CELL DISTRIBUTION WIDTH 20.4 % (11.5-14.5)
[2019-01-17 22:20] LABS: BLOOD UREA NITROGEN 6 mg/dL (6-20); CREATININE 0.9 mg/dL (0.5-0.9); EST GLOMERULAR FILTRATION RATE > 60 mL/min
[2019-01-17 22:23] LABS: GLUCOSE,RANDOM 114 mg/dL (74-109)
[2019-01-17] MEDS ORDERED: ACETAMINOPHEN 500 MG TABLET PO ONE (22:41)
[2019-01-17] MEDS ORDERED: IBUPROFEN 600 MG TABLET PO ONE (22:50)
[2019-01-17] MEDS ORDERED: ALBUTEROL SULFATE (0.083%) 2.5 MG/3 ML NEB INH ONE (22:50)
[2019-01-17] MEDS ORDERED: DIPHENHYDRAMINE HCL 50 MG/ML VIAL IVP ONE (23:50)
--- NOTE | 2019-01-18 00:03 | Emergency Department Record ---
History of Present Illness - General Chief Complaint: Shortness of breath Stated Complaint: TROUBLE BREATHING/PLUGGED EARS Time Seen by Provider: 01/17/19 21:21 Source: Patient Mode of Arrival: Ambulatory Limitations: No limitations - History of Present Illness Initial Comments: pt has been sick this week w congestion,ear pain, sinus pressure, cough and wheezing. she is out of her inhaler. her eyes have been watery and crusty MD Complaint: "Asthma attack", Cough Onset/Timin -: Days(s) Severity: Moderate Quality: Aching Consistency: Constant, Getting worse Improves With: Nothing Associated Symptoms: Cough, Fever, Other - Related Data Home Oxygen Therapy: No Previous Rx's Medication Instructions Recorded Ropinirole HCl [Requip] 4 mg PO TID #15 tablet 04/17/17 Albuterol Sulfate 0.083% [Neb] 2.5 mg INH RESP.Q1H PRN #30 05/29/18 [Albuterol Sulfate] nebulization solution Albuterol Sulfate [Proair Hfa] 8.5 gm IH ASDIR PRN #10 inhaler 05/29/18 Fluticasone/Salmeterol [Advair 1 each IH BID #1 blst.w.dev 05/29/18 250-50 Diskus] Lorazepam [Ativan] 0.5 mg PO DAILY #7 tablet 05/29/18 Hydrocodone/APAP 5/325Mg [[place] 1 each PO Q6H #6 tab 12/23/18 5Mg/325Mg] Albuterol Sulfate [Ventolin Hfa] 1 - 2 puff IH .EVERY 4-6 HOURS PRN 01/18/19 #1 inhaler Prednisone [Prednisone 20Mg] 20 mg PO Q12HR #7 tab 01/18/19 Allergies Allergy/AdvReac Type Severity Reaction Status Date / Time latex Allergy Unknown BLISTERS Verified 01/17/19 21:18 morphine Allergy Unknown RASH Verified 01/17/19 21:18 nitrofurantoin Allergy Unknown MUSCLE PAIN Verified 01/17/19 21:18 nitrofurantoin Allergy Unknown MUSCLE PAIN Verified 01/17/19 21:18 macrocrystalline dexamethasone [From Decadron] Allergy BEHAVIORAL Verified 01/17/19 21:18 CHANGES dexamethasone sod phosphate Allergy BEHAVIORAL Verified 01/17/19 21:18 [From Decadron] CHANGES duloxetine HCl Allergy BEHAVIORAL Verified 01/17/19 21:18 [From Cymbalta] CHANGES levofloxacin [From Levaquin] Allergy RASH Verified 01/17/19 21:18 metoclopramide HCl AdvReac HYPERSENSIT Verified 01/17/19 21:18 [From Reglan] IVITY Travel Screening - Travel/Exposure Within Last 30 Days Have you traveled within the last 30 days?: No - Additonal Travel Details Have you been exposed to anyone with a communicable illness?: No - Travel Symptoms Symptom Screening: None Review of Systems Reviewed: No additional complaints except as noted below Constitutional: Reports: As per HPI. Denies: Chills, Fever, Malaise, Night sweats, Weakness, Weight change Eyes: Reports: As per HPI, Eye discharge. Denies: Eye pain, Photophobia, Vision change ENT: Reports: As per HPI, Congestion, Ear pain. Denies: Dental pain, Epistaxis, Hearing loss, Throat pain Respiratory: Reports: As per HPI, Cough, Wheezes. Denies: Dyspnea, Hemoptysis, Stridor Cardiovascular: Reports: As per HPI. Denies: Arrhythmia, Chest pain, Dyspnea on exertion, Edema, Murmurs, Orthopnea, Palpitations, Paroxysmal nocturnal dyspnea, Rheumatic Fever, Syncope Endocrine: Reports: As per HPI. Denies: Fatigue, Heat or cold intolerance, Polydipsia, Polyuria Gastrointestinal: Reports: As per HPI. Denies: Abdominal pain, Constipation, D iarrhea, Hematemesis, Hematochezia, Melena, Nausea, Vomiting Genitourinary: Reports: As per HPI. Denies: Abnormal menses, Discharge, Dyspareunia, Dysuria, Frequency, Hematuria, Incontinence, Retention, Urgency Musculoskeletal: Reports: As per HPI. Denies: Arthralgia, Back pain, Gout, Joint swelling, Myalgia, Neck pain Skin: Reports: As per HPI. Denies: Bruising, Change in color, Change in hair/nails, Lesions, Pruritus, Rash Neurological: Reports: As per HPI. Denies: Abnormal gait, Confusion, Headache, Numbness, Paresthesias, Seizure, Tingling, Tremors, Vertigo, Weakness Psychiatric: Reports: As per HPI. Denies: Anxiety, Auditory hallucinations, Depression, Homicidal thoughts, Suicidal thoughts, Visual hallucinations Hematological/Lymphatic: Reports: As per HPI. Denies: Anemia, Blood Clots, Easy bleeding, Easy bruising, Swollen glands Past Medical History - SOCIAL HISTORY Smoking Status: Never smoker Alcohol Use: Rare Drug Use: None - RESPIRATORY Hx Respiratory Disorders: Yes Hx Asthma: Yes Comment:: "vocal cord disorder" - CARDIOVASCULAR Hx Cardio Disorders: No - NEURO Hx Neuro Disorders: Yes Hx Seizures: Yes (2013) - GI Hx GI Disorders: Yes Hx Reflux: Yes Comment:: gastric bypass - Hx Genitourinary Disorders: No - ENDOCRINE Hx Endocrine Disorders: No - MUSCULOSKELETAL Hx Musculoskeletal Disorders: Yes Hx Arthritis: Yes Hx Fibromyalgia: Yes Comment:: RLS - PSYCH Hx Psych Problems: Yes Hx Anxiety: Yes - HEMATOLOGY/ONCOLOGY Hx Hematology/Oncology Disorders: No Family Medical History Any Significant Family History?: No Hx Cancer: Mother Hx Heart Disease: Grandparents Physical Exam - General General Appearance: Alert, Oriented x3, Cooperative, Mild distress - Head Head exam: Normal inspection - Eye Eye exam: Normal appearance, PERRL, EOMI Pupils: Normal accommodation - ENT ENT exam: Normal exam, Mucous membranes moist, Normal external ear exam, Normal orophraynx, TM's normal bilaterally Ear exam: Normal external inspection. negative: External canal tenderness Nasal Exam: Normal inspection. negative: Discharge, Sinus tenderness Mouth exam: Normal external inspection, Tongue normal Teeth exam: Normal inspection. negative: Dental caries Throat exam: Normal inspection. negative: Tonsillar erythema, Tonsillar exudate - Neck Neck exam: Normal inspection, Full ROM. negative: Tenderness - Respiratory Respiratory exam: Respiratory distress, Wheezes - Cardiovascular Cardiovascular Exam: Normal rhythm, Normal heart sounds, Tachycardia - GI/Abdominal GI/Abdominal exam: Soft, Normal bowel sounds. negative: Tenderness - Rectal Rectal exam: Deferred - exam: Deferred - Extremities Extremities exam: Normal inspection, Full ROM, Normal capillary refill. negative: Tenderness - Back Back exam: Reports: Normal inspection, Full ROM. Denies: Muscle spasm, Rash noted, Tenderness - Neurological Neurological exam: Alert, CN II-XII intact, Normal gait, Oriented X3 - Psychiatric Psychiatric exam: Normal affect, Normal mood - Skin Skin exam: Dry, Intact, Normal color, Warm Course Vital Signs 01/17/19 01/17/19 01/17/19 21:18 21:31 21:42 Temperature 98.4 F Pulse Rate 118 H 80 Pulse Rate [ Pulse Ox Probe] Respiratory 36 H 20 Rate Blood Pressure 137/102 Blood Pressure [Left Arm] Pulse Ox 97 01/17/19 01/17/19 22:55 23:30 Temperature 97.6 F Pulse Rate 78 Pulse Rate [ 115 H Pulse Ox Probe] Respiratory 16 24 Rate Blood Pressure Blood Pressure 137/100 [Left Arm] Pulse Ox 99 - Reevaluation(s) Reevaluation #1: 01/18/19 00:03 pt feels better as far as wheezing and sob Medical Decision Making - Lab Data Result diagrams: 01/17/19 20:00 01/17/19 20:00 Lab Results 01/17/19 01/17/19 Range/Units 20:00 20:00 WBC 6.4 (4.2-12.2) K/uL RBC 4.16 (3.80-5.40) M/uL Hgb 9.7 L (11.6-16.0) gm/dl Hct 31.7 L (35.0-47.0) % MCV 76.2 L (81-97) fl MCH 23.3 L (27-33) pg MCHC 30.6 L (32-36) g/dl RDW 20.4 H (11.5-14.5) % Plt Count 404 H (130-400) K/uL MPV 9.1 (7.4-10.4) fl Gran % 62.0 (47-80) % Lymphocytes % 23.7 (16-45) % Monocytes % 9.5 H (0-9) % Eosinophils % 3.9 (0-6) % Basophils % 0.9 (0-6) % Absolute Neutrophils 3.98 Sodium 141 (136-145) mmol/L Potassium 3.7 (3.4-4.5) mmol/L Chloride 111 H (98-107) mmol/L Carbon Dioxide 14.0 L (22-29) mmol/L Anion Gap 16.0 (7-16) BUN 6 (6-20) mg/dL Creatinine 0.9 (0.5-0.9) mg/dL Estimated GFR > 60 mL/min Random Glucose 114 H (74-109) mg/dL Calcium 9.1 (8.6-10.0) mg/dL Disposition Disposition: Discharge Clinical Impression: Viral syndrome Asthma Qualifiers: Asthma severity: mild Asthma persistence: intermittent Asthma complication type: with acute exacerbation Qualified Code(s): J45.21 - Mild intermittent asthma with (acute) exacerbation Disposition: Home, Self-Care Condition: (1) Good Instructions: Asthma (ED), Viral Syndrome (ED) Additional Instructions: follow up with family doctor. return sooner if worse. tylenol or motrin or dayquil and nyquil for symptoms. Prescriptions: Prednisone [Prednisone 20Mg] 20 mg PO Q12HR #7 tab Albuterol Sulfate [Ventolin Hfa] 1 - 2 puff IH .EVERY 4-6 HOURS PRN #1 inhaler PRN Reason: Difficulty In Breathing Quality - Quality Measures Quality Measures: N/A - Blood Pressure Screening Does Patient Have Any of the Following: No Blood Pressure Classification: Hypertensive Reading Systolic Measurement: 137 Diastolic Measurement: 102 Screening for High Blood Pressure: < First Hypertensive BP, F/U Documented > [ G8950] First Hypertensive Follow-up Interventions: Follow-up with rescreen GT 1 day and LT 4 weeks.
--- NOTE | 2019-01-18 12:50 | RADIOLOGY REPORT ---
EXAM: CHEST, TWO VIEWS HISTORY: DIFFICULTY BREATHING, THROAT SWELLING. TECHNIQUE: PA and lateral upright views of the chest were obtained. Comparison: 06/08/18. FINDINGS: The heart, mediastinum, and pulmonary vasculature are normal. There is the suggestion for a small hiatal hernia. The lungs are clear. There is no pneumothorax or effusion. The bones appear intact. IMPRESSION: NO ACUTE CHEST PATHOLOGY. JOB NUMBER: [id number] [facility]
== END 2019-01-18 00:20 | disposition home or self-care (01) ==
LOC: ER 21:09
DX: J45.21 Mild intermittent asthma with (acute) exacerbation (principal); B34.9 Viral infection, unspecified; R06.02 Shortness of breath
CPT/HCPCS: 99284 ×2; 96374; 96375; 85025; 80048; 71046; 94640 ×2; J2060; J1200; J7613

== ENCOUNTER 2019-01-20 09:40 | Emergency (ER) | payer BC ==
[2019-01-20] MEDS ORDERED: CLINDAMYCIN 150 MG CAP PO ONE (09:47)
--- NOTE | 2019-01-20 09:48 | Emergency Department Record ---
History of Present Illness - General Stated complaint: ENT Time Seen by Provider: 01/20/19 09:41 Source: Patient Mode of Arrival: Ambulatory Limitations: No limitations - History of Present Illness Initial comments: 48 yo female presents with congestion and fullness in the ears. She has had six days of drainage. Her ears feel plugged. She has discolored discharge from the nose. She has had some eye drainage as well. She has pressure over the maxillary sinus area. Mild sore throat. She does not have any fevers. No swollen glands. No nausea or vomiting. No rash. No vision changes. No PCP because she does not like to wait for appointments. She was seen on 01/17 for congestion and asthma. She just filled her prescriptions this morning for the her steroid and inhaler. MD complaint: Ear pain -: Days(s) (6) Location: R ear, L ear Severity: Moderate Quality: Aching Consistency: Constant Improves with: None Worsens with: Other (blowing her nose) Context- Ear: Recent illness, Other Associated Symptoms: Cough (dry non productive) - Related Data Previous Rx's Medication Instructions Recorded Ropinirole HCl [Requip] 4 mg PO TID #15 tablet 04/17/17 Albuterol Sulfate 0.083% [Neb] 2.5 mg INH RESP.Q1H PRN #30 05/29/18 [Albuterol Sulfate] nebulization solution Albuterol Sulfate [Proair Hfa] 8.5 gm IH ASDIR PRN #10 inhaler 05/29/18 Fluticasone/Salmeterol [Advair 1 each IH BID #1 blst.w.dev 05/29/18 250-50 Diskus] Albuterol Sulfate [Ventolin Hfa] 1 - 2 puff IH .EVERY 4-6 HOURS PRN 01/18/19 #1 inhaler Prednisone [Prednisone 20Mg] 20 mg PO Q12HR #7 tab 01/18/19 Clindamycin HCl 300 mg PO QID #40 capsule 01/20/19 Allergies Allergy/AdvReac Type Severity Reaction Status Date / Time latex Allergy Unknown BLISTERS Verified 01/17/19 21:18 morphine Allergy Unknown RASH Verified 01/17/19 21:18 nitrofurantoin Allergy Unknown MUSCLE PAIN Verified 01/17/19 21:18 nitrofurantoin Allergy Unknown MUSCLE PAIN Verified 01/17/19 21:18 macrocrystalline dexamethasone [From Decadron] Allergy BEHAVIORAL Verified 01/17/19 21:18 CHANGES dexamethasone sod phosphate Allergy BEHAVIORAL Verified 01/17/19 21:18 [From Decadron] CHANGES duloxetine HCl Allergy BEHAVIORAL Verified 01/17/19 21:18 [From Cymbalta] CHANGES levofloxacin [From Levaquin] Allergy RASH Verified 01/17/19 21:18 metoclopramide HCl AdvReac HYPERSENSIT Verified 01/17/19 21:18 [From Reglan] IVITY Review of Systems Constitutional: Denies: Chills, Fever, Malaise, Night sweats, Weakness Eyes: Denies: Eye discharge, Eye pain, Photophobia, Vision change ENT: Reports: Congestion, Ear pain. Denies: Throat pain Respiratory: Reports: Cough. Denies: Dyspnea, Hemoptysis, Stridor, Wheezes Cardiovascular: Denies: Chest pain, Edema Endocrine: Denies: Fatigue Gastrointestinal: Denies: Abdominal pain, Diarrhea, Nausea, Vomiting Genitourinary: Denies: Dysuria, Urgency Musculoskeletal: Denies: Arthralgia, Back pain, Joint swelling, Myalgia Skin: Denies: Bruising, Change in color, Rash Neurological: Reports: Headache. Denies: Numbness, Tingling, Tremors, Vertigo, Weakness Psychiatric: Denies: Anxiety Hematological/Lymphatic: Denies: Easy bleeding, Easy bruising Past Medical History - SOCIAL HISTORY Smoking Status: Never smoker Drug Use: None - RESPIRATORY Hx Respiratory Disorders: Yes Hx Asthma: Yes Comment:: "vocal cord disorder" - CARDIOVASCULAR Hx Cardio Disorders: No - NEURO Hx Neuro Disorders: Yes Hx Seizures: Yes (2013) - GI Hx GI Disorders: Yes Hx Reflux: Yes Comment:: gastric bypass - Hx Genitourinary Disorders: No - ENDOCRINE Hx Endocrine Disorders: No - MUSCULOSKELETAL Hx Musculoskeletal Disorders: Yes Hx Arthritis: Yes Hx Fibromyalgia: Yes Comment:: RLS - PSYCH Hx Psych Problems: Yes Hx Anxiety: Yes - HEMATOLOGY/ONCOLOGY Hx Hematology/Oncology Disorders: No Family Medical History Hx Cancer: Mother Hx Heart Disease: Grandparents Physical Exam - General General Appearance: Alert, Oriented x3, Cooperative, No acute distress Limitations: No limitations - Head Head exam: Atraumatic, Normal inspection - Eye Eye exam: Normal appearance, PERRL. negative: Conjunctival injection, Periorbital swelling, Scleral icterus - ENT ENT exam: Mucous membranes moist, Normal orophraynx. negative: TM's normal bilaterally (Left TM fluid with mild erythema, Right mild fluid no erythema) Ear exam: Normal external inspection. negative: Auricular hematoma, Auricular trauma, External canal tenderness Nasal Exam: Discharge (discolored), Sinus tenderness (maxillary). negative: Active bleeding Mouth exam: Normal external inspection Teeth exam: Normal inspection Throat exam: Normal inspection. negative: Tonsillar erythema, Tonsillomegaly, Tonsillar exudate, R peritonsillar mass, L peritonsillar mass - Neck Neck exam: Normal inspection, Full ROM. negative: Lymphadenopathy, Meningismus, Tenderness - Respiratory Respiratory exam: Decreased breath sounds, Wheezes (minimal faint wheeze), Other (Non labored. No conversational dyspnea). negative: Normal lung sounds bilaterally, Accessory muscle use, Prolonged expiratory - Cardiovascular Peripheral Pulses: 2+: Radial (R), Radial (L) - GI/Abdominal GI/Abdominal exam: Soft. negative: Tenderness - Extremities Extremities exam: Normal inspection. negative: Pedal edema, Tenderness - Back Back exam: Reports: Normal inspection - Neurological Neurological exam: Alert, Oriented X3 - Psychiatric Psychiatric exam: Anxious (tearful). negative: Agitated - Skin Skin exam: Dry, Intact, Normal color, Warm Course - Reevaluation(s) Reevaluation #1: The patient was seen and examined. She is afebrile. Her examination is consistent with acute sinusitis with the drainage. Mild wheeze on examination. Normal throat examination Supple neck with full ROM, no meningeal signs, no lymphadenopathy, no swelling Frequent non productive cough on initial examination 01/20/19 09:58 01/20/19 10:04 The mild wheeze on initial examination resolved with the Duoneb. 01/20/19 10:46 Much improved and relaxed. HR 102. Lungs clear. Ready for DC Disposition Disposition: Discharge Clinical Impression: Sinusitis Qualifiers: Sinusitis location: maxillary Chronicity: acute Recurrence: not specified as recurrent Qualified Code(s): J01.00 - Acute maxillary sinusitis, unspecified Asthma exacerbation Qualifiers: Asthma severity: mild Asthma persistence: intermittent Qualified Code(s): J45.21 - Mild intermittent asthma with (acute) exacerbation Disposition: Home, Self-Care Condition: (1) Good Instructions: Sinusitis (ED) Additional Instructions: Call for a new doctor for the next available follow up appointment Review this ER visit and the tests performed with your new family doctor Return to the ER for a recheck if worse, any new concerns or questions Take the prescriptions provided as directed Prescriptions: Clindamycin HCl 300 mg PO QID #40 capsule Time of Disposition: 10:07 Quality - Quality Measures Quality Measures: N/A - Blood Pressure Screening Does Patient Have Any of the Following: No Blood Pressure Classification: Pre-Hypertensive BP Reading Systolic Measurement: 123 Diastolic Measurement: 89 Screening for High Blood Pressure: < Pre-Hypertensive BP, F/U Documented > [G8950] Pre-Hypertensive Follow-up Interventions: Referral to alternative/primary care provider.
[2019-01-20] MEDS ORDERED: PREDNISONE 20 MG TAB PO ONE (09:52)
[2019-01-20] MEDS ORDERED: IPRATROPIUM/ALBUTEROL (0.5MG/3MG) NEB INH ONE (09:52)
[2019-01-20] MEDS ORDERED: KETOROLAC 30 MG/ML VIAL IM ONE (09:54)
[2019-01-20] MEDS ORDERED: SULFACETAMIDE SODIUM 15ML BTL OPTH ONE (10:06)
== END 2019-01-20 10:54 | disposition home or self-care (01) ==
LOC: ER 09:40
DX: J45.21 Mild intermittent asthma with (acute) exacerbation (principal); J01.00 Acute maxillary sinusitis, unspecified; R05 Cough
CPT/HCPCS: 99284 ×2; 96372; 94640; J1885

== ENCOUNTER 2019-02-25 03:24 | Observation (INO) | payer BC ==
[2019-02-25] MEDS ORDERED: METHYLPREDNISOLONE PF 125MG/VIAL IVP ONE (03:42)
[2019-02-25] MEDS ORDERED: IPRATROPIUM/ALBUTEROL (0.5MG/3MG) NEB INH ONE (03:42)
[2019-02-25] MEDS ORDERED: ALBUTEROL SULFATE (0.083%) 2.5 MG/3 ML NEB INH ONE ×2 (03:42→12:52)
[2019-02-25] MEDS ORDERED: LORAZEPAM 2 MG/ML VIAL IV ONE (03:43)
--- NOTE | 2019-02-25 03:47 | Emergency Department Record ---
History of Present Illness - General Chief Complaint: Shortness of breath Stated Complaint: IRAJ Time Seen by Provider: 02/25/19 03:32 Source: Patient Mode of Arrival: Ambulatory Limitations: No limitations - History of Present Illness Initial Comments: The patient is here due to a one hour hx of SOB. She states she was watching TV when she suddenly became SOB and felt like her vocal chords were not working. The patient does have a hx of Asthma and Vocal Chord Dysfunction with similar symptoms. She did have some chest pressure at the onset but that was brief and only lasted a few minutes. The patient has been ill for about a month with a cough and congestion. She has had no fever, chills, CP, back pain or vomiting. The patient has been admitted to the hospital for asthma in the past but never to the ICU or intubated. MD Complaint: Shortness of breath Onset/Timin -: Hour(s) Improves With: Nothing Worsens With: Movement Known History Of: Asthma Context: Allergen exposure Associated Symptoms: Denies other symptoms - Related Data Previous Rx's Medication Instructions Recorded Ropinirole HCl [Requip] 4 mg PO TID #15 tablet 04/17/17 Albuterol Sulfate 0.083% [Neb] 2.5 mg INH RESP.Q1H PRN #30 05/29/18 [Albuterol Sulfate] nebulization solution Albuterol Sulfate [Proair Hfa] 8.5 gm IH ASDIR PRN #10 inhaler 05/29/18 Fluticasone Propion/Salmeterol 1 each IH BID #1 blst.w.dev 05/29/18 [Advair 250-50 Diskus] Albuterol Sulfate [Ventolin Hfa] 1 - 2 puff IH .EVERY 4-6 HOURS PRN 01/18/19 #1 inhaler Allergies Allergy/AdvReac Type Severity Reaction Status Date / Time latex Allergy Unknown BLISTERS Verified 02/25/19 03:35 morphine Allergy Unknown RASH Verified 02/25/19 03:35 nitrofurantoin Allergy Unknown MUSCLE PAIN Verified 02/25/19 03:35 nitrofurantoin Allergy Unknown MUSCLE PAIN Verified 02/25/19 03:35 macrocrystalline dexamethasone [From Decadron] Allergy BEHAVIORAL Verified 02/25/19 03:35 CHANGES dexamethasone sod phosphate Allergy BEHAVIORAL Verified 02/25/19 03:35 [From Decadron] CHANGES duloxetine HCl Allergy BEHAVIORAL Verified 02/25/19 03:35 [From Cymbalta] CHANGES levofloxacin [From Levaquin] Allergy RASH Verified 02/25/19 03:35 amoxicillin [From Augmentin] AdvReac RASH Verified 02/25/19 03:36 clavulanic acid AdvReac RASH Verified 02/25/19 03:36 [From Augmentin] lithium AdvReac ALTERED Verified 02/25/19 03:36 MENTAL STATUS metoclopramide HCl AdvReac HYPERSENSIT Verified 02/25/19 03:35 [From Reglan] IVITY Travel Screening - Travel/Exposure Within Last 30 Days Have you traveled within the last 30 days?: No - Travel/Exposure Within Last Year Have you traveled outside the [place] in the last year?: No - Additonal Travel Details Have you been exposed to anyone with a communicable illness?: No - Travel Symptoms Symptom Screening: None Review of Systems Constitutional: Denies: Chills, Fever Eyes: Denies: Eye discharge ENT: Reports: Congestion Respiratory: Reports: Cough, Dyspnea. Denies: Hemoptysis Cardiovascular: Denies: Arrhythmia, Chest pain Endocrine: Denies: Fatigue Gastrointestinal: Denies: Diarrhea, Vomiting Genitourinary: Denies: Dysuria Musculoskeletal: Denies: Arthralgia Skin: Denies: Bruising Past Medical History - SOCIAL HISTORY Smoking Status: Never smoker Alcohol Use: Occasional Drug Use: None - RESPIRATORY Hx Respiratory Disorders: Yes Hx Asthma: Yes Comment:: "vocal cord disorder" - CARDIOVASCULAR Hx Cardio Disorders: No - NEURO Hx Neuro Disorders: Yes Hx Seizures: Yes (2013) - GI Hx GI Disorders: Yes Hx Reflux: Yes Comment:: gastric bypass - Hx Genitourinary Disorders: No - ENDOCRINE Hx Endocrine Disorders: No - MUSCULOSKELETAL Hx Musculoskeletal Disorders: Yes Hx Arthritis: Yes Hx Fibromyalgia: Yes Comment:: RLS - PSYCH Hx Psych Problems: Yes Hx Anxiety: Yes - HEMATOLOGY/ONCOLOGY Hx Hematology/Oncology Disorders: No Family Medical History Any Significant Family History?: Yes Hx Cancer: Mother Hx Heart Disease: Grandparents Physical Exam - General General Appearance: Alert, Oriented x3, Cooperative, Mild distress (due to dyspnea. She is able to speak in full sentences with a hoarse voice.) - Head Head exam: Atraumatic, Normocephalic - Eye Eye exam: Normal appearance, PERRL - ENT Throat exam: Normal inspection. negative: Tonsillar erythema, Tonsillomegaly, Tonsillar exudate - Neck Neck exam: Normal inspection, Full ROM. negative: Lymphadenopathy, Meningismus, Tenderness - Respiratory Respiratory exam: Normal lung sounds bilaterally, Stridor (mildly.), Wheezes (There are end expiratory wheezes bibasilar.). negative: Decreased breath sounds, Rales, Respiratory distress, Rhonchi - GI/Abdominal GI/Abdominal exam: Soft, Normal bowel sounds. negative: Tenderness - Extremities Extremities exam: Normal inspection, Full ROM, Normal capillary refill. negative: Tenderness - Back Back exam: Reports: Normal inspection - Neurological Neurological exam: Alert, Normal gait, Oriented X3. negative: Abnormal gait, Altered, Motor sensory deficit Course Vital Signs 02/25/19 03:27 Temperature 98.5 F Pulse Rate 113 H Respiratory 28 H Rate Blood Pressure 95/86 Pulse Ox 99 - Reevaluation(s) Reevaluation #1: The patient is back from xray and denies any improvement. She is able to speak in full sentences with mild stridor. Her xrays did not demonstrate any acute changes and due to the persistent stridor we will try a racemic Epi tx. for the vocal cord dysfunction. 02/25/19 04:41 Reevaluation #2: The patient is doing a little better at this time. Her stridor is improved but not resolved and she feels that her asthma may still be an issue. Due to the persistent nature of her complaints we will admit the patient overnight. 02/25/19 04:49 Reevaluation #3: The patient is presently doing better. She is now sleeping and is no longer stridorous. Her O2 sats are 99% and she is resting comfortably. 02/25/19 04:57 Medical Decision Making - Data Complexity MDM Data: Labs Ordered and/or Reviewed, X-Ray Ordered and/or Reviewed, EKG Ordered and/or Reviewed - Lab Data Result diagrams: 02/25/19 03:45 02/25/19 03:45 - EKG Data -: EKG Interpreted by [place] EKG: No Acute Changes, Normal EKG (Sinus tach at 110. Neg for ST- T changes.) - Radiology Data Radiology results: Report reviewed (CXR: Neg. Soft tissue neck: Neg epiglottitis.) Disposition Disposition: Admit Clinical Impression: Asthma exacerbation Disposition: Still a Patient at [facility] Decision to Admit: Admit from ER Decision to Admit Date: 02/25/19 Decision to Admit Time: 04:51 Accepting Physician: Love Villanueva Discussed w/Accepting Physician: 04:51 Condition: (2) Stable Time of Disposition: 04:51 Quality - Quality Measures Quality Measures: N/A - Blood Pressure Screening View Details: Yes Does Patient Have Any of the Following: No Blood Pressure Classification: Pre-Hypertensive BP Reading Systolic Measurement: 95 Diastolic Measurement: 86 Screening for High Blood Pressure: < Pre-Hypertensive BP, F/U Documented > [[id number]] Pre-Hypertensive Follow-up Interventions: Referral to alternative/primary care provider.
[2019-02-25] MEDS ORDERED: ALBUTEROL (0.5% CONCENTRATED) 2.5 MG/0.5 ML VIAL.NEB INH ONE (03:53)
[2019-02-25 03:55] LABS: HEMATOCRIT 30.1 % (35.0-47.0); HEMOGLOBIN 8.8 gm/dl (11.6-16.0); MEAN CELL VOLUME 80.7 fl (81-97); MEAN CORPUSCULAR HGB CONC 29.2 g/dl (32-36); MEAN PLATELET VOLUME 9.3 fl (7.4-10.4); PLATELET COUNT 328 K/uL (130-400); RED BLOOD COUNT 3.73 M/uL (3.80-5.40); RED CELL DISTRIBUTION WIDTH 21.7 % (11.5-14.5); WHITE BLOOD COUNT W/O DIFF 4.4 K/uL (4.2-12.2)
[2019-02-25 03:57] LABS: MEAN CORPUSCULAR HEMOGLOBIN 23.5 pg (27-33)
[2019-02-25 04:04] LABS: BLOOD UREA NITROGEN 8 mg/dL (6-20); CREATININE 0.8 mg/dL (0.5-0.9); EST GLOMERULAR FILTRATION RATE > 60 mL/min
[2019-02-25 04:05] LABS: TOTAL PROTEIN 6.9 g/dL (6.6-8.7)
[2019-02-25 04:07] LABS: GLUCOSE,RANDOM 103 mg/dL (74-109)
[2019-02-25 04:09] LABS: ALB/GLOB RATIO 1.2 (1.1-1.8); ALBUMIN 3.8 g/dL (4.0-5.0); ALKALINE PHOSPHATASE 118 U/L (35-104); ALT/SGPT 16 U/L (<33); AST/SGOT 22 U/L (10.0-35.0)
[2019-02-25 04:18] LABS: ANISOCYTOSIS 2+; HYPOCHROMIA 1+; MICROCYTOSIS 1+; PLATELET ESTIMATE NORMAL (NORMAL)
[2019-02-25] MEDS ORDERED: 0.9 % SODIUM CHLORIDE 1,000 ML BAG IV ONE (04:19)
[2019-02-25] MEDS ORDERED: RACEPINEPHRINE 2.25% (0.5ML) NEB INH ONE (04:40)
[2019-02-25] MEDS ORDERED: 0.9 % SODIUM CHLORIDE 1000ML 1,000 ML IV ONE (05:08)
[2019-02-25] MEDS ORDERED: LORAZEPAM 2 MG/ML VIAL IV PRN (05:08)
[2019-02-25] MEDS: ROPINIROLE HCL 1 MG TABLET PO SCH ×4 (05:51→21:11)
[2019-02-25] MEDS: IPRATROPIUM/ALBUTEROL (0.5MG/3MG) NEB INH SCH ×3 (06:29→13:30)
[2019-02-25] MEDS: BREO (FLUTICASONE/VILANTEROL) 200MCG/25MCG INHALER INH SCH (10:45)
--- NOTE | 2019-02-25 11:53 | History & Physical ---
History of Present Illness - Date of Service Date of Service for History & Physical: 02/25/19 - History of Present Illness Admitting Diagnosis: 1. Acute Asthma Exacerbation with Vocal Cord Dysfunction. History of Present Illness: 48 y/o female presented to ED with 1 hour history of shortness of breath. The episode was unprovoked, she was watching TV. She has a history of vocal cord dysfunction and felt an acute exacerbation of it at that time as well; episode lasted only a few minutes. Patient did report in the ED she had been ill with cough and congestion for about a month, denying fever, chill, chest pain, back pain, or vomiting. Tut that was brief and only lasted a few minutes. The patient has been ill for about a month with a cough and congestion. The patient has been admitted to the hospital for asthma in the past but never to the ICU or intubated. Past medical history includes, asthma, vocal cord dysfunction, seizures, s/p gastric bypass, post menopausal, OA, fibromyalgia, RLS, anxiety. While in ED she arrived dysnpneic, tachypneic, [id number], RR 28. BP 95/86. Afebrile. HGb 8.8, MVH/MCH low (review of records shows chronic anemia, last 01/17/19- 9.7, 06/08/18-8.8). Troponin x 2 negative. EKG sinus tach. CXR negative for acute process, soft tissue x-ray negative for abnormalities or acute epiglottitis. She was stridorous with slow improvement with breathing treatments and solumedrol. She did eventually make some improvements in dyspnea, stridor has resolved by the time she was transferred to the floor. She was admitted for observation of stridor and exacerbation of asthma. 02/25/19- Travel Screening - Travel/Exposure Within Last 30 Days Have you traveled within the last 30 days?: No - Travel/Exposure Within Last Year Have you traveled outside the [place] in the last year?: No - Additonal Travel Details Have you been exposed to anyone with a communicable illness?: No - Travel Symptoms Symptom Screening: None Review of Systems Constitutional: Denies: Chills, Fever Eyes: Denies: Eye discharge ENT: Reports: Congestion Respiratory: Reports: Cough, Dyspnea. Denies: Hemoptysis Cardiovascular: Denies: Arrhythmia, Chest pain Endocrine: Denies: Fatigue Gastrointestinal: Denies: Diarrhea, Vomiting Genitourinary: Denies: Dysuria Musculoskeletal: Denies: Arthralgia Skin: Denies: Bruising Past Medical History - SOCIAL HISTORY Smoking Status: Never smoker Alcohol Use: Occasional Drug Use: None - RESPIRATORY Hx Respiratory Disorders: Yes Hx Asthma: Yes Comment:: "vocal cord disorder" - CARDIOVASCULAR Hx Cardio Disorders: No - NEURO Hx Neuro Disorders: Yes Hx Seizures: Yes (2013) - GI Hx GI Disorders: Yes Hx Reflux: Yes Comment:: gastric bypass - Hx Genitourinary Disorders: No - ENDOCRINE Hx Endocrine Disorders: No - MUSCULOSKELETAL Hx Musculoskeletal Disorders: Yes Hx Arthritis: Yes Hx Fibromyalgia: Yes Comment:: RLS - PSYCH Hx Psych Problems: Yes Hx Anxiety: Yes - HEMATOLOGY/ONCOLOGY Hx Hematology/Oncology Disorders: No Family Medical History Any Significant Family History?: Yes Hx Cancer: Mother Hx Heart Disease: Grandparents H&P Meds/Allergies - Allergies Allergies: Allergies Allergy/AdvReac Type Severity Reaction Status Date / Time latex Allergy Unknown BLISTERS Verified 02/25/19 03:35 morphine Allergy Unknown RASH Verified 02/25/19 03:35 nitrofurantoin Allergy Unknown MUSCLE PAIN Verified 02/25/19 03:35 nitrofurantoin Allergy Unknown MUSCLE PAIN Verified 02/25/19 03:35 macrocrystalline dexamethasone [From Decadron] Allergy BEHAVIORAL Verified 02/25/19 03:35 CHANGES dexamethasone sod phosphate Allergy BEHAVIORAL Verified 02/25/19 03:35 [From Decadron] CHANGES duloxetine HCl Allergy BEHAVIORAL Verified 02/25/19 03:35 [From Cymbalta] CHANGES levofloxacin [From Levaquin] Allergy RASH Verified 02/25/19 03:35 amoxicillin [From Augmentin] AdvReac RASH Verified 02/25/19 03:36 clavulanic acid AdvReac RASH Verified 02/25/19 03:36 [From Augmentin] lithium AdvReac ALTERED Verified 02/25/19 03:36 MENTAL STATUS metoclopramide HCl AdvReac HYPERSENSIT Verified 02/25/19 03:35 [From Reglan] IVITY - Home Medications Previous Rx's Medication Instructions Recorded Ropinirole HCl [Requip] 4 mg PO TID #15 tablet 04/17/17 Albuterol Sulfate 0.083% [Neb] 2.5 mg INH RESP.Q1H PRN #30 05/29/18 [Albuterol Sulfate] nebulization solution Albuterol Sulfate [Proair Hfa] 8.5 gm IH ASDIR PRN #10 inhaler 05/29/18 Fluticasone Propion/Salmeterol 1 each IH BID #1 blst.w.dev 05/29/18 [Advair 250-50 Diskus] Albuterol Sulfate [Ventolin Hfa] 1 - 2 puff IH .EVERY 4-6 HOURS PRN 01/18/19 #1 inhaler - Active Medications Active Medications: Current Medications Acetaminophen (Tylenol 325mg) 650 mg PO Q6H PRN PRN Reason: PAIN - MILD(1-4)/FEVER Albuterol/Ipratropium (Duoneb) 3 ml INH RESP.Q4H.WA [facility] Last Admin: 02/25/19 10:45 Dose: 3 ml Documented by: Sodium Chloride () 1,000 mls @ 100 mls/hr IV .Q10H ONE Stop: 02/25/19 15:07 Last Admin: 02/25/19 05:52 Dose: 100 mls/hr Documented by: Lorazepam (Ativan) 0.5 mg IV Q8H PRN PRN Reason: ANXIETY Last Admin: 02/25/19 10:54 Dose: 0.5 mg Documented by: Methylprednisolone Sodium Succinate (Solu-Medrol) 60 mg IVP DAILY [facility] Ropinirole HCl (Requip) 4 mg PO TID [facility] Last Admin: 02/25/19 05:51 Dose: 4 mg Documented by: Physical Exam - Vital Signs Vital Signs: Vital Signs - Last 24 Hrs Temp Pulse Pulse Resp BP BP Pulse Ox 02/25/19 11:31 97.5 F L 20 129/81 99 02/25/19 10:48 88 18 99 02/25/19 08:08 108 H 22 98 02/25/19 08:00 106 H 24 126/74 97 02/25/19 05:57 98.5 F 20 123/69 100 02/25/19 04:41 105 H 24 98/68 100 02/25/19 04:08 108 H 24 96 02/25/19 03:54 105 H 30 H 96 02/25/19 03:27 98.5 F 113 H 28 H 95/86 99 - General General Appearance: Alert, Oriented x3, Cooperative Limitations: No limitations - Head Head exam: Atraumatic, Normocephalic - Eye Eye exam: Normal appearance, PERRL - ENT Throat exam: Normal inspection. negative: Tonsillar erythema, Tonsillomegaly, Tonsillar exudate - Neck Neck exam: Normal inspection, Full ROM. negative: Lymphadenopathy, Meningismus, Tenderness - Respiratory Respiratory exam: Normal lung sounds bilaterally, Stridor (mildly.), Wheezes (There are end expiratory wheezes bibasilar.). negative: Decreased breath sounds, Rales, Respiratory distress, Rhonchi - GI/Abdominal GI/Abdominal exam: Soft, Normal bowel sounds. negative: Tenderness - Extremities Extremities exam: Normal inspection, Full ROM, Normal capillary refill. nega tive: Tenderness - Back Back exam: Reports: Normal inspection - Neurological Neurological exam: Alert, Normal gait, Oriented X3. negative: Abnormal gait, Altered, Motor sensory deficit Results - Labs Result Diagrams: 02/25/19 03:45 02/25/19 03:45 Labs Last 24 Hours: Laboratory Results - last 24 hr 02/25/19 02/25/19 02/25/19 03:45 03:45 03:45 WBC 4.4 RBC 3.73 L Hgb 8.8 L Hct 30.1 L MCV 80.7 L MCH 23.5 L MCHC 29.2 L RDW 21.7 H Plt Count 328 MPV 9.3 Neutrophils % 37.0 L Eosinophils % Not Reportable Basophils % Not Reportable Absolute Neutrophils 1.60 Lymphocytes 35.0 Monocytes 18.0 H Platelet Estimate Normal Hypochromasia 1+ Anisocytosis 2+ Microcytosis 1+ Macrocytosis 1+ Eosinophil Count 10.0 H Sodium 137 Potassium 3.9 Chloride 105 Carbon Dioxide 18.0 L Anion Gap 14.0 BUN 8 Creatinine 0.8 Estimated GFR > 60 Random Glucose 103 Calcium 8.9 Total Bilirubin 0.20 AST 22 ALT 16 Alkaline Phosphatase 118 H Troponin T < 0.010 Total Protein 6.9 Albumin 3.8 L Globulin 3.1 Albumin/Globulin Ratio 1.2 VTE H&P Assessment - Risk for VTE Risk for VTE: Yes Risk Level: Moderate Risk Assessment Date: 02/25/19 Risk Assessment Time: 12:20 VTE Orders Placed or Will Be Placed: Yes Plan - Detailed Diagnosis and Plan (1) Asthma exacerbation Current Visit: Yes Status: Acute Base Code: J45.901 - UNSPECIFIED ASTHMA WIT H (ACUTE) EXACERBATION Comment: 02/25/19 - on albuterol nebs q4H PRN, duonebs Q6H NOMAN, oxygen prn to keep sats > 92% - Solumedrol 60mg QD - Ativan 0.5mg IV PRN for anxiety - Breo - Telemetry - IV hydration (2) Anemia Current Visit: Yes Status: Acute Base Code: D64.9 - ANEMIA, UNSPECIFIED Comment: 02/25/19 - Chronic 01/17/19- 9.7, 06/08/18 8.8 - MCV and MCH low, appears to be iron deficient - Iron studies today (3) Anxiety Current Visit: No Status: Acute Base Code: F41.9 - ANXIETY DISORDER, UNSPECIFIED Comment: 02/25/19 - Ativan 0.5 mg IVP Q6H PRN (4) DVT prophylaxis Current Visit: No Status: Acute Base Code: [id number] - Comment: 02/25/19 - Nursing to encourage frequent ambulation (5) Full code status Current Visit: No Status: Acute Base Code: Z78.9 - OTHER SPECIFIED HEALTH STATUS
[2019-02-25] MEDS ORDERED: ACETAMINOPHEN 500 MG TABLET PO PRN (12:22)
[2019-02-25] MEDS: ACETAMINOPHEN 325 MG TAB PO PRN (12:24)
[2019-02-25 12:44] LABS: % SATURATION 2 % (20-50)
[2019-02-25] MEDS ORDERED: IRON SUCROSE COMPLEX 500 MG in 0.9 % SODIUM CHLORIDE 250ML 250 ML IVPB ONE (13:01)
[2019-02-25] MEDS: ENOXAPARIN 40 MG/0.4 ML SYR SQ SCH (13:22)
[2019-02-25] MEDS: METHYLPREDNISOLONE PF 125MG/VIAL IVP SCH ×2 (13:23→20:52)
[2019-02-25] MEDS: LORATADINE 10 MG TABLET PO SCH (13:25)
[2019-02-25] MEDS: LORAZEPAM 2 MG/ML VIAL IV PRN ×3 (13:26→21:09)
[2019-02-25] MEDS ORDERED: ALBUTEROL SULFATE (0.083%) 2.5 MG/3 ML NEB INH PRN (15:49)
--- NOTE | 2019-02-25 17:06 | History & Physical ---
History of Present Illness - Date of Service Date of Service for History & Physical: 02/25/19 - History of Present Illness Admitting Diagnosis: 1. Acute Asthma Exacerbation with Vocal Cord Dysfunction. History of Present Illness: 48 y/o female presented to ED with 1 hour history of shortness of breath. The episode was unprovoked, she was watching TV. She has a history of vocal cord dysfunction and felt an acute exacerbation of it at that time as well; episode lasted only a few minutes. Patient did report in the ED she had been ill with cough and congestion for about a month, denying fever, chill, chest pain, back pain, or vomiting. Tut that was brief and only lasted a few minutes. The patient has been ill for about a month with a cough and congestion. The patient has been admitted to the hospital for asthma in the past but never to the ICU or intubated, shes hospitalized approximately twice yearly. She does not currently have a PCP, has never seen a transition mgr outside of the inpatient setting. Has seen ENT in the past who recommend surgical intervention at [facility] for vocal cord dysfunction but had a 50/50 chance of not having a voice at all so has been hesitant to proceed. She reports she has had vocal cord dysfunction for the past 10+ years, not sure what caused it. Stress and asthma exacerbations seem to exacerbate it. She reports over the last 8 months her voice has been progressively more raspy with fewer days of a clear voice. Past medical history includes, asthma, vocal cord dysfunction, seizures, s/p gastric bypass, post menopausal, OA, fibromyalgia, RLS, anxiety. While in ED she arrived dysnpneic, tachypneic, [id number], RR 28. BP 95/86. Afebrile. HGb 8.8, MVH/MCH low (review of records shows chronic anemia, last 01/17/19- 9.7, 06/08/18-8.8). Troponin x 2 negative. EKG sinus tach. CXR negative for acute process, soft tissue x-ray negative for abnormalities or acute epiglottitis. She was stridorous with slow improvement with breathing treatments and solumedrol. She did eventually make some improvements in dyspnea, stridor has resolved by the time she was transferred to the floor. She was admitted for observation of stridor and exacerbation of asthma. 02/25/19- resting in bed, in mild distress. She is dyspneic, very restless. Conversation regarding her hospital course seems to make her restlessness worse, her heart rate on telemetry increased to 120's during conversation. She reports prior to hospitalization she was managing her anxiety with ativan, had tried SSRI and SNRI before and made her RLS worse. She denies any previous surgeries in the last 30 days, no active cancerous process, had not been bed-bound recently. No previous hx DVT/PE, no clotting disorders PCP: none Travel Screening - Travel/Exposure Within Last 30 Days Have you traveled within the last 30 days?: No - Travel/Exposure Within Last Year Have you traveled outside the [place] in the last year?: No - Additonal Travel Details Have you been exposed to anyone with a communicable illness?: No - Travel Symptoms Symptom Screening: None Review of Systems Constitutional: Denies: Chills, Fever Eyes: Denies: Eye discharge ENT: Reports: Congestion Respiratory: Reports: Cough, Dyspnea. Denies: Hemoptysis Cardiovascular: Denies: Arrhythmia, Chest pain Endocrine: Denies: Fatigue Gastrointestinal: Denies: Diarrhea, Vomiting Genitourinary: Denies: Dysuria Musculoskeletal: Denies: Arthralgia Skin: Denies: Bruising Past Medical History - SOCIAL HISTORY Smoking Status: Never smoker Alcohol Use: Occasional Drug Use: None - RESPIRATORY Hx Respiratory Disorders: Yes Hx Asthma: Yes Comment:: "vocal cord disorder" - CARDIOVASCULAR Hx Cardio Disorders: No - NEURO Hx Neuro Disorders: Yes Hx Seizures: Yes (2013) - GI Hx GI Disorders: Yes Hx Reflux: Yes Comment:: gastric bypass - Hx Genitourinary Disorders: No - ENDOCRINE Hx Endocrine Disorders: No - MUSCULOSKELETAL Hx Musculoskeletal Disorders: Yes Hx Arthritis: Yes Hx Fibromyalgia: Yes Comment:: RLS - PSYCH Hx Psych Problems: Yes Hx Anxiety: Yes - HEMATOLOGY/ONCOLOGY Hx Hematology/Oncology Disorders: No Family Medical History Any Significant Family History?: Yes Hx Cancer: Mother Hx Heart Disease: Grandparents H&P Meds/Allergies - Allergies Allergies: Allergies Allergy/AdvReac Type Severity Reaction Status Date / Time latex Allergy Unknown BLISTERS Verified 02/25/19 03:35 morphine Allergy Unknown RASH Verified 02/25/19 03:35 nitrofurantoin Allergy Unknown MUSCLE PAIN Verified 02/25/19 03:35 nitrofurantoin Allergy Unknown MUSCLE PAIN Verified 02/25/19 03:35 macrocrystalline dexamethasone [From Decadron] Allergy BEHAVIORAL Verified 02/25/19 03:35 CHANGES dexamethasone sod phosphate Allergy BEHAVIORAL Verified 02/25/19 03:35 [From Decadron] CHANGES duloxetine HCl Allergy BEHAVIORAL Verified 02/25/19 03:35 [From Cymbalta] CHANGES levofloxacin [From Levaquin] Allergy RASH Verified 02/25/19 03:35 amoxicillin [From Augmentin] AdvReac RASH Verified 02/25/19 03:36 clavulanic acid AdvReac RASH Verified 02/25/19 03:36 [From Augmentin] lithium AdvReac ALTERED Verified 02/25/19 03:36 MENTAL STATUS metoclopramide HCl AdvReac HYPERSENSIT Verified 02/25/19 03:35 [From Reglan] IVITY - Home Medications Previous Rx's Medication Instructions Recorded Ropinirole HCl [Requip] 4 mg PO TID #15 tablet 04/17/17 Albuterol Sulfate 0.083% [Neb] 2.5 mg INH RESP.Q1H PRN #30 05/29/18 [Albuterol Sulfate] nebulization solution Albuterol Sulfate [Proair Hfa] 8.5 gm IH ASDIR PRN #10 inhaler 05/29/18 Fluticasone Propion/Salmeterol 1 each IH BID #1 blst.w.dev 05/29/18 [Advair 250-50 Diskus] Albuterol Sulfate [Ventolin Hfa] 1 - 2 puff IH .EVERY 4-6 HOURS PRN 01/18/19 #1 inhaler - Active Medications Active Medications: Current Medications Acetaminophen (Tylenol 325mg) 650 mg PO Q6H PRN PRN Reason: PAIN - MILD(1-4)/FEVER Last Admin: 02/25/19 12:24 Dose: 650 mg Documented by: Albuterol Sulfate (Albuterol Sulfate) 2.5 mg INH RESP.Q4H.WA PRN PRN Reason: DIFFICULTY IN BREATHING Albuterol/Ipratropium (Duoneb) 3 ml INH RESP.Q4H.WA [facility] Last Admin: 02/25/19 13:30 Dose: 3 ml Documented by: Enoxaparin Sodium (Lovenox) 40 mg SQ DAILY [facility] Last Admin: 02/25/19 13:22 Dose: 40 mg Documented by: Iron Sucrose 500 mg/ Sodium (Chloride) 275 mls @ 68 mls/hr IVPB NOW ONE Stop: 02/25/19 17:03 Loratadine (Claritin) 10 mg PO DAILY [facility] Last Admin: 02/25/19 13:25 Dose: 10 mg Documented by: Lorazepam (Ativan) 0.25 mg IV Q4HR PRN PRN Reason: ANXIETY Last Admin: 02/25/19 13:26 Dose: 0.25 mg Documented by: Methylprednisolone Sodium Succinate (Solu-Medrol) 60 mg IVP Q8H [facility] Last Admin: 02/25/19 13:23 Dose: 60 mg Documented by: Montelukast Sodium (Singulair) 10 mg PO QHS [facility] Ropinirole HCl (Requip) 4 mg PO TID [facility] Last Admin: 02/25/19 12:10 Dose: Not Given Documented by: Physical Exam - Vital Signs Vital Signs: Vital Signs - Last 24 Hrs Temp Pulse Pulse Resp BP BP Pulse Ox 02/25/19 15:38 97.9 F 112 H 30 H 154/82 96 02/25/19 15:31 106 H 24 98 02/25/19 13:30 109 H 22 99 02/25/19 11:31 97.5 F L 20 129/81 99 02/25/19 10:48 88 18 99 02/25/19 08:08 108 H 22 98 02/25/19 08:00 106 H 24 126/74 97 02/25/19 05:57 98.5 F 20 123/69 100 02/25/19 04:41 105 H 24 98/68 100 02/25/19 04:08 108 H 24 96 02/25/19 03:54 105 H 30 H 96 02/25/19 03:27 98.5 F 113 H 28 H 95/86 99 - General General Appearance: Alert, Oriented x3, Cooperative, Mild distress Limitations: No limitations - Head Head exam: Atraumatic, Normocephalic - Eye Eye exam: Normal appearance, PERRL - ENT ENT exam: Normal exam, Mucous membranes moist Throat exam: Normal inspection. negative: Tonsillar erythema, Tonsillomegaly, Tonsillar exudate - Neck Neck exam: Normal inspection, Full ROM. negative: Lymphadenopathy, Meningismus, Tenderness - Respiratory Respiratory exam: Normal lung sounds bilaterally, Wheezes (There are end expiratory wheezes bilat upper lobes). negative: Decreased breath sounds, Rales, Respiratory distress, Rhonchi, Stridor - Cardiovascular Cardiovascular Exam: Normal rhythm, Tachycardia - GI/Abdominal GI/Abdominal exam: Soft, Normal bowel sounds. negative: Tenderness - Extremities Extremities exam: Normal inspection, Full ROM, Normal capillary refill. negative: Tenderness - Back Back exam: Reports: Normal inspection - Neurological Neurological exam: Alert, Normal gait, Oriented X3. negative: Abnormal gait, Altered, Motor sensory deficit - Psychiatric Psychiatric exam: Anxious - Skin Skin exam: Dry, Intact, Normal color, Warm Results - Labs Result Diagrams: 02/25/19 03:45 02/25/19 03:45 Labs Last 24 Hours: Laboratory Results - last 24 hr 02/25/19 02/25/19 02/25/19 03:45 03:45 03:45 WBC 4.4 RBC 3.73 L Hgb 8.8 L Hct 30.1 L MCV 80.7 L MCH 23.5 L MCHC 29.2 L RDW 21.7 H Plt Count 328 MPV 9.3 Neutrophils % 37.0 L Eosinophils % Not Reportable Basophils % Not Reportable Absolute Neutrophils 1.60 Lymphocytes 35.0 Monocytes 18.0 H Platelet Estimate Normal Hypochromasia 1+ Anisocytosis 2+ Microcytosis 1+ Macrocytosis 1+ Eosinophil Count 10.0 H D-Dimer Sodium 137 Potassium 3.9 Chloride 105 Carbon Dioxide 18.0 L Anion Gap 14.0 BUN 8 Creatinine 0.8 Estimated GFR > 60 Random Glucose 103 Calcium 8.9 Iron TIBC % Saturation Total Bilirubin 0.20 AST 22 ALT 16 Alkaline Phosphatase 118 H Troponin T < 0.010 Total Protein 6.9 Albumin 3.8 L Globulin 3.1 Albumin/Globulin Ratio 1.2 02/25/19 02/25/19 02/25/19 11:00 12:17 12:29 WBC RBC Hgb Hct MCV MCH MCHC RDW Plt Count MPV Neutrophils % Eosinophils % Basophils % Absolute Neutrophils Lymphocytes Monocytes Platelet Estimate Hypochromasia Anisocytosis Microcytosis Macrocytosis Eosinophil Count D-Dimer 0.55 Sodium Potassium Chloride Carbon Dioxide Anion Gap BUN Creatinine Estimated GFR Random Glucose Calcium Iron 12 L TIBC 436 H % Saturation 2 L Total Bilirubin AST ALT Alkaline Phosphatase Troponin T < 0.010 Total Protein Albumin Globulin Albumin/Globulin Ratio - Imaging and Cardiology Chest x-ray Status: Report reviewed (no acute process) VTE H&P Assessment - Risk for VTE Risk for VTE: Yes Risk Level: Moderate Risk Assessment Date: 02/25/19 Risk Assessment Time: 12:20 VTE Orders Placed or Will Be Placed: Yes Plan - Detailed Diagnosis and Plan (1) Asthma exacerbation Current Visit: Yes Status: Acute Base Code: J45.901 - UNSPECIFIED ASTHMA WITH (ACUTE) EXACERBATION Comment: 02/25/19 - albuterol nebs q2H PRN, duonebs Q6H [facility], oxygen prn to keep sats > 92% - Little improvement in IRAJ and wheezing, patient still reporting difficulty getting a breath in - increase Solumedrol 60mg TID - Ativan 0.25 mg IV Q4hr PRN for anxiety - Pulomonolgy consult - D-dimer for persistent IRAJ and tachycardia - Eosinophils elevated, add Loratadine and Singulair - Breo - Telemetry - IV hydration (2) Anemia Current Visit: Yes Status: Acute Qualifiers: Anemia type: iron deficiency Base Code: D64.9 - ANEMIA, UNSPECIFIED Comment: 02/25/19 - Chronic 01/17/19- 9.7, 06/08/18 8.8 - MCV and MCH low, appears to be iron deficient - Iron studies today - Dose of Venofer if iron studies are low (3) Anxiety Current Visit: No Status: Acute Base Code: F41.9 - ANXIETY DISORDER, UNSPECIFIED Comment: 02/25/19 - Ativan 025 mg IVP Q4H PRN - She will need to establish with PCP after discharge for treatment of persistent anxiety, not recommended to contiue with benzos for the long-term (4) DVT prophylaxis Current Visit: No Status: Acute Base Code: [id number] - Comment: 02/25/19 - Nursing to encourage frequent ambulation - Lovenox 40mg QD (5) Full code status Current Visit: No Status: Acute Base Code: Z78.9 - OTHER SPECIFIED HEALTH STATUS
[2019-02-25] MEDS ORDERED: CEFTRIAXONE SODIUM 1 GM in 0.9 % SODIUM CHLORIDE 100ML 100 ML IVPB SCH (18:00)
[2019-02-25] MEDS ORDERED: AZITHROMYCIN 500 MG in 0.9 % SODIUM CHLORIDE 250ML 250 ML IVPB SCH (18:00)
[2019-02-25] MEDS ORDERED: LEVALBUTEROL HCL 1.25 MG/3 ML INH PRN ×2 (18:01)
[2019-02-25 19:06] LABS: ARTERIAL BLOOD GAS HCO3 16.8 mmol/L (18-23); ARTERIAL BLOOD GAS PCO2 26.3 mmHg (35-48); ARTERIAL BLOOD GAS pH 7.42 (7.35-7.45)
[2019-02-25 19:07] LABS: ALLEN TEST PASS; ARTERIAL BLD GAS O2 SATURATION 92.5 % (95-98)
[2019-02-25] MEDS: IBUPROFEN 600 MG TABLET PO PRN (20:51)
[2019-02-25] MEDS: MONTELUKAST SODIUM 10MG TABLET PO SCH (21:11)
[2019-02-25] MEDS ORDERED: HYDROCODONE/APAP 5/325MG TABLET PO ONE (22:05)
[2019-02-26] MEDS: KETOROLAC 30 MG/ML VIAL IVP PRN ×4 (00:14→19:06)
[2019-02-26] MEDS: IBUPROFEN 600 MG TABLET PO PRN (04:30)
[2019-02-26] MEDS: LORAZEPAM 2 MG/ML VIAL IV PRN ×4 (04:31→21:03)
[2019-02-26] MEDS: METHYLPREDNISOLONE PF 125MG/VIAL IVP SCH ×3 (04:32→21:03)
[2019-02-26 06:24] LABS: ABSOLUTE NEUTROPHIL COUNT 3.98; HEMATOCRIT 29.9 % (35.0-47.0); HEMOGLOBIN 8.5 gm/dl (11.6-16.0); MEAN CORPUSCULAR HGB CONC 28.4 g/dl (32-36); MEAN PLATELET VOLUME 9.1 fl (7.4-10.4); PLATELET COUNT 382 K/uL (130-400); RED BLOOD COUNT 3.69 M/uL (3.80-5.40); RED CELL DISTRIBUTION WIDTH 21.7 % (11.5-14.5); WHITE BLOOD COUNT W/O DIFF 4.7 K/uL (4.2-12.2)
[2019-02-26] MEDS: IPRATROPIUM BR 0.02% NEB (0.5MG) INH SCH ×4 (06:24→13:22)
[2019-02-26 06:38] LABS: ALB/GLOB RATIO 1.3 (1.1-1.8); ALBUMIN 3.9 g/dL (4.0-5.0); ALKALINE PHOSPHATASE 107 U/L (35-104); ALT/SGPT 15 U/L (<33); AST/SGOT 14 U/L (10.0-35.0); BLOOD UREA NITROGEN 9 mg/dL (6-20); CREATININE 0.7 mg/dL (0.5-0.9); EST GLOMERULAR FILTRATION RATE > 60 mL/min; GLUCOSE,RANDOM 163 mg/dL (74-109)
[2019-02-26 06:39] LABS: ANISOCYTOSIS 2+; MICROCYTOSIS 1+; PLATELET ESTIMATE NORMAL (NORMAL)
--- NOTE | 2019-02-26 07:18 | RADIOLOGY REPORT ---
EXAM: SOFT TISSUES OF THE NECK, TWO VIEWS HISTORY: PATIENT AWOKE WITH SHORTNESS OF BREATH. CHEST PAIN. TECHNIQUE: Two views of the soft tissues of the neck are provided along with the comparison study dated 03/28/[address] scan of the neck dated 02/04/18. FINDINGS: The vertebral body height, contour, and AP alignment of the visualized cervical spine is within normal limits. Degenerative disk disease of the cervical spine appears similar to the prior examination. The prevertebral soft tissue is unremarkable. The aryepiglottic folds appear similar to the prior examination. The epiglottis is unremarkable. The visualized airways are unremarkable. The visualized upper lung farmer are unremarkable. IMPRESSION: UNREMARKABLE PLAIN FILM RADIOGRAPH OF THE SOFT TISSUES OF THE NECK. JOB NUMBER: [id number] [facility]
--- NOTE | 2019-02-26 07:21 | RADIOLOGY REPORT ---
EXAM: CHEST, TWO VIEWS HISTORY: PATIENT HAS CHEST PAIN. TECHNIQUE: Two views of the chest are provided along with the comparison study dated 01/17/19. FINDINGS: The cardiomediastinal silhouette is within normal limits for size and contour. The asritha appear unremarkable. There is no radiographic evidence of a focal infiltrate, pleural effusion, or pneumothorax. IMPRESSION: STABLE RADIOGRAPHIC APPEARANCE OF THE CHEST WITH RESPECT TO THE PRIOR EXAMINATION. JOB NUMBER: [id number] [facility]
--- NOTE | 2019-02-26 07:31 | CT ANGIOGRAM REPORT ---
EXAM: CTA OF THE CHEST HISTORY: DIFFICULTY BREATHING. TACHYPNEA, CHEST PAIN. TECHNIQUE: After the uneventful administration of intravenous contrast contiguous axial sections were obtained through the chest, contrast timing to evaluate the pulmonary arteries. Coronal and sagittal reformats were provided. Comparison: 05/15/11. FINDINGS: Motion limits evaluation for small distal pulmonary emboli. Artifact from patient body habitus also limits the evaluation. Given this, no filling defects are identified within the pulmonary arteries. The central pulmonary arteries appear normal in caliber. No aneurysm or dissection of the thoracic aorta. There is a small hiatal hernia. The heart size is at the upper limits of normal. No pericardial thickening. No evidence for right heart strain. There are coronary artery calcifications. No mediastinal or hilar adenopathy evident. The airways appear grossly patent. The small airways are limited by motion. Motion limits evaluation of the lungs. There is a small amount of dependent atelectasis. Possible parahilar patchy air space disease of the right upper lobe. Pneumothorax. Limited cuts through the upper abdomen are grossly unremarkable. There is mild spurring of the spine. IMPRESSION: 1. STUDY LIMITED BY MOTION AND ARTIFACT FROM PATIENT BODY HABITUS. THIS LIMITS EVALUATION FOR SMALL DISTAL PULMONARY EMBOLI. GIVEN THIS, NO CTA EVIDENCE FOR PULMONARY EMBOLISM. 2. MOTION ALSO LIMITS EVALUATION OF THE LUNGS. THERE MAY BE A SUBTLE PARAHILAR INFILTRATE PRESENT WITHIN THE RIGHT UPPER LOBE. SHORT TERM FOLLOW-UP RECOMMENDED. 3. HIATAL HERNIA. 4. ADDITIONAL FINDINGS ABOVE. 5. THE ORDERING PHYSICIAN WAS NOTIFIED BY VOICE CLIP. JOB NUMBER: [id number] [facility]
[2019-02-26] MEDS: ACETAMINOPHEN 325 MG TAB PO PRN ×2 (09:08→16:46)
[2019-02-26] MEDS: ENOXAPARIN 40 MG/0.4 ML SYR SQ SCH (09:09)
[2019-02-26] MEDS: ROPINIROLE HCL 1 MG TABLET PO SCH ×3 (09:09→21:03)
[2019-02-26] MEDS: LORATADINE 10 MG TABLET PO SCH (09:09)
[2019-02-26] MEDS: BREO (FLUTICASONE/VILANTEROL) 200MCG/25MCG INHALER INH SCH (09:19)
[2019-02-26] MEDS ORDERED: METHYLPREDNISOLONE PF 125MG/VIAL IVP SCH (10:00)
--- NOTE | 2019-02-26 10:05 | Physician Progress Note ---
Subjective - Date Date of Physician Progress Note: 02/26/19 - Subjective Subjective Comment: Patient did not sleep much during the night. Ativan at current dose is not relieving anxiety. Yesterday her RR climbed as high as 40/min, continued restlessness and tachycardia. Did try Bi-pap for about 45 minutes and was able to rest for a couple hours, awoke startled with the mask on her face and became very anxious. Has requested no further use of Bi-pap. She does report her breathing is 50% better than yesterday, able to inhale more fully. Voice is less raspy. Objective - Vital Signs Vital Signs: Vital Signs - Last 24 Hrs Temp Pulse Pulse Pulse Resp BP Pulse Ox 02/26/19 09:31 104 H 20 98 02/26/19 09:20 112 H 20 98 02/26/19 08:30 97.9 F 114 H 22 147/87 98 02/26/19 07:47 98 H 02/26/19 04:00 97.9 F 101 H 24 142/93 96 02/26/19 00:00 98.1 F 119 H 26 H 162/83 98 02/25/19 21:00 108 H 02/25/19 19:47 98.0 F 111 H 24 168/84 99 02/25/19 15:38 97.9 F 112 H 30 H 154/82 96 02/25/19 15:31 106 H 24 98 02/25/19 13:30 109 H 22 99 02/25/19 11:31 97.5 F L 20 129/81 99 02/25/19 10:48 88 18 99 - General General Appearance: Alert, Oriented x3, Cooperative Limitations: No limitations - Head Head exam: Atraumatic, Normocephalic - Eye Eye exam: Normal appearance, PERRL - ENT ENT exam: Normal exam, Mucous membranes moist Throat exam: Normal inspection (quailty and tone of voice more clear today, less raspy). negative: Tonsillar erythema, Tonsillomegaly, Tonsillar exudate - Neck Neck exam: Normal inspection, Full ROM. negative: Lymphadenopathy, Meningismus, Tenderness - Respiratory Respiratory exam: Normal lung sounds bilaterally. negative: Decreased breath sounds, Rales, Respiratory distress, Rhonchi, Stridor, Wheezes (There are end expiratory wheezes bilat upper lobes) - Cardiovascular Cardiovascular Exam: Normal rhythm, Tachycardia - GI/Abdominal GI/Abdominal exam: Soft, Normal bowel sounds. negative: Tenderness - Extremities Extremities exam: Normal inspection, Full ROM, Normal capillary refill. negative: Tenderness - Back Back exam: Reports: Normal inspection - Neurological Neurological exam: Alert, Normal gait, Oriented X3. negative: Abnormal gait, Al tered, Motor sensory deficit - Psychiatric Psychiatric exam: Anxious - Skin Skin exam: Dry, Intact, Normal color, Warm Assessment and Plan - Assessment and Plan (1) Asthma exacerbation Current Visit: Yes Status: Acute Base Code: J45.901 - UNSPECIFIED ASTHMA WITH (ACUTE) EXACERBATION Comment: 02/26/19 - Albuterol changed to Levalbuterol due to tachycardia, levalbuterol nebs q2H PRN, Levalbuterol/Ipratropium Q6H [place], oxygen prn to keep sats > 92% - Bipap applied yesterday due to continued tachypnea and restlessness, tolerated about 45 minutes - increase Solumedrol 60mg TID- appear to have clinical improvement today - Increae Ativan 0.5 mg IV Q4hr PRN for anxiety - Pulomonolgy consult - D-dimer for persistent IRAJ and tachycardia- negative - CTA chest yesterday due to persistent tachycardia, restlessness, dyspnea- negative for PE, possible subtle perihilar infiltrate, hiatial hernia - ABG suggests chronic respiratory alkalosis, most likey from hyperventilatory behavior 2/2 anxiety - Rocephin 500mg and Rocephin 1GM - Eosinophils elevated, add Loratadine and Singulair - Breo - Telemetry - IV hydration - Peak flow/Spirometry - Anticipate DC home tomorrow pending continued improvement of dyspnea (2) Anemia Current Visit: Yes Status: Acute Qualifiers: Anemia type: iron deficiency Base Code: D64.9 - ANEMIA, UNSPECIFIED Comment: 02/25/19 - Chronic 01/17/19- 9.7, 06/08/18 8.8 - Iron 12, TIBC 436, % 2 - Venofer 500mg, repeat in 2 weeks with repeat iron studies in 4 weeks (3) Anxiety Current Visit: No Status: Acute Base Code: F41.9 - ANXIETY DISORDER, UNSPECIFIED Comment: 02/26/19 - Increase Ativan to 0.5mg IVP Q4H PRN - Clinical picture reflects uncontrolled anxiety causing exacerbation in asthma and vocal cord dysfunction, she is respoding well to solumedrol. - She will need to establish with PCP after discharge for treatment of persistent anxiety, not recommended to contiue with benzos for the long-term (4) Tachycardia Current Visit: Yes Status: Acute Base Code: R00.0 - TACHYCARDIA, UNSPECIFIED Comment: 02/26/19 - pt has been had been tachycardic throughout her stay primarily due her anxiety and hyperventilation. She has been on continuous rn plastic surgery which has not shown any acute changes. - TSH 0.64 (5) DVT prophylaxis Current Visit: No Status: Acute Base Code: [id number] - Comment: 02/26/19 - Nursing to encourage frequent ambulation - Lovenox 40mg QD (6) Full code status Current Visit: No Status: Acute Base Code: Z78.9 - OTHER SPECIFIED HEALTH STATUS Results - Labs Result Diagrams: 02/26/19 06:15 02/26/19 06:15 Labs Last 24 Hours: Laboratory Results - last 24 hr 02/25/19 02/25/19 02/25/19 11:00 12:17 12:29 WBC RBC Hgb Hct MCV MCH MCHC RDW Plt Count MPV Neutrophils % Band Neutrophils % Eosinophils % Basophils % Absolute Neutrophils Lymphocytes Monocytes Platelet Estimate Anisocytosis Microcytosis Macrocytosis D-Dimer 0.55 Puncture Site pCO2 pO2 HCO3 Oxyhemoglobin ABG pH ABG O2 Saturation ABG Base Excess Mykel Test Carboxyhemoglobin Methemoglobin Actual Respiration Rate FiO2 Sodium Potassium Chloride Carbon Dioxide Anion Gap BUN Creatinine Estimated GFR Random Glucose Calcium Iron 12 L TIBC 436 H % Saturation 2 L Total Bilirubin AST ALT Alkaline Phosphatase Troponin T < 0.010 Total Protein Albumin Globulin Albumin/Globulin Ratio Procalcitonin TSH 02/25/19 02/25/19 02/26/19 17:45 17:53 06:15 WBC 4.7 RBC 3.69 L Hgb 8.5 L Hct 29.9 L MCV 81.0 MCH 23.0 L MCHC 28.4 L RDW 21.7 H Plt Count 382 MPV 9.1 Neutrophils % 83.0 H Band Neutrophils % 3.0 Eosinophils % Not Reportable Basophils % Not Reportable Absolute Neutrophils 3.98 Lymphocytes 12.0 L Monocytes 2.0 Platelet Estimate Normal Anisocytosis 2+ Microcytosis 1+ Macrocytosis 1+ D-Dimer Puncture Site Right wrist pCO2 26.3 L pO2 88.0 HCO3 16.8 L Oxyhemoglobin Not Reportable ABG pH 7.42 ABG O2 Saturation 92.5 L ABG Base Excess Not Reportable Mykel Test Pass Carboxyhemoglobin Not Reportable Methemoglobin Not Reportable Actual Respiration Rate 24.0 H FiO2 21.0 Sodium Potassium Chloride Carbon Dioxide Anion Gap BUN Creatinine Estimated GFR Random Glucose Calcium Iron TIBC % Saturation Total Bilirubin AST ALT Alkaline Phosphatase Troponin T Total Protein Albumin Globulin Albumin/Globulin Ratio Procalcitonin 0.020 TSH 02/26/19 02/26/19 06:15 06:15 WBC RBC Hgb Hct MCV MCH MCHC RDW Plt Count MPV Neutrophils % Band Neutrophils % Eosinophils % Basophils % Absolute Neutrophils Lymphocytes Monocytes Platelet Estimate Anisocytosis Microcytosis Macrocytosis D-Dimer Puncture Site pCO2 pO2 HCO3 Oxyhemoglobin ABG pH ABG O2 Saturation ABG Base Excess Mykel Test Carboxyhemoglobin Methemoglobin Actual Respiration Rate FiO2 Sodium 136 Potassium 3.8 Chloride 101 Carbon Dioxide 21.0 L Anion Gap 14.0 BUN 9 Creatinine 0.7 Estimated GFR > 60 Random Glucose 163 H Calcium 9.3 Iron TIBC % Saturation Total Bilirubin 0.40 AST 14 ALT 15 Alkaline Phosphatase 107 H Troponin T Total Protein 7.0 Albumin 3.9 L Globulin 3.1 Albumin/Globulin Ratio 1.3 Procalcitonin TSH 0.64 DVT/PE Assessment - Risk for VTE Risk for VTE: No Risk Level: Moderate Risk Assessment Date: 02/25/19 Risk Assessment Time: 12:20 VTE Orders Placed or Will Be Placed: Yes - Active Medicaitons Current Medications: Current Medications Acetaminophen (Tylenol 325mg) 650 mg PO Q6H PRN PRN Reason: PAIN - MILD(1-4)/FEVER Last Admin: 02/26/19 09:08 Dose: 650 mg Documented by: Diphenhydramine HCl (Benadryl) 25 mg IVP Q6H PRN PRN Reason: HEADACHE Enoxaparin Sodium (Lovenox) 40 mg SQ DAILY [facility] Last Admin: 02/26/19 09:09 Dose: 40 mg Documented by: Azithromycin 500 mg/ Sodium (Chloride) 250 mls @ 250 mls/hr IVPB Q24H [facility] Stop: 03/02/19 18:01 Last Infusion: 02/25/19 19:54 Dose: Infused Documented by: CEFTRIAXONE 1GM/50ML BAG (Ceftriaxone 1 Gm-D5w Bag) 1 gm in 50 mls @ 100 mls/hr IVPB Q24H [facility] Ibuprofen (Motrin 600mg) 600 mg PO Q6H PRN PRN Reason: PAIN - MILD TO MODERATE (1-7) Last Admin: 02/26/19 04:30 Dose: 600 mg Documented by: Ipratropium [place] (Atrovent 0.02% Neb) 2.5 ml INH RESP.Q4H.WA [facility] Last Admin: 02/26/19 09:18 Dose: 2.5 ml Documented by: Ketorolac Tromethamine (Toradol) 30 mg IVP Q6H PRN PRN Reason: PAIN - MOD TO SEVERE (5-10) Last Admin: 02/26/19 06:44 Dose: 30 mg Documented by: Levalbuterol HCl (Xopenex (1.25mg/3ml)) 1.25 mg INH RESP.Q2H PRN PRN Reason: DIFFICULTY IN BREATHING Levalbuterol HCl (Xopenex (1.25mg/3ml)) 1.25 mg INH RESP.Q4H.WA PRN PRN Reason: DIFFICULTY IN BREATHING Loratadine (Claritin) 10 mg PO DAILY [facility] Last Admin: 02/26/19 09:09 Dose: 10 mg Documented by: Lorazepam (Ativan) 0.5 mg IV Q4HR PRN PRN Reason: ANXIETY Methylprednisolone Sodium Succinate (Solu-Medrol) 60 mg IVP Q8H [facility] Last Admin: 02/26/19 04:32 Dose: 60 mg Documented by: Montelukast Sodium (Singulair) 10 mg PO QHS [facility] Last Admin: 02/25/19 21:11 Dose: 10 mg Documented by: Ropinirole HCl (Requip) 4 mg PO TID [facility] Last Admin: 02/26/19 09:09 Dose: 4 mg Documented by: CARMELO Plan - Labs Result Diagrams: 02/26/19 06:15 02/26/19 06:15
[2019-02-26] MEDS ORDERED: INFLUENZA VACCINE IM ONE (10:14)
[2019-02-26] MEDS ORDERED: IRON SUCROSE COMPLEX 500 MG in 0.9 % SODIUM CHLORIDE 250ML 250 ML IVPB ONE (10:30)
[2019-02-26] MEDS: DIPHENHYDRAMINE HCL 50 MG/ML VIAL IVP PRN ×2 (12:55→19:07)
[2019-02-26] MEDS: AZITHROMYCIN 500 MG TABLET PO SCH (15:36)
[2019-02-26] MEDS ORDERED: CEFTRIAXONE 1GM/50ML BAG 1 GM/50 ML BAG IVPB SCH (20:00)
[2019-02-26] MEDS: MONTELUKAST SODIUM 10MG TABLET PO SCH (21:03)
[2019-02-27] MEDS: KETOROLAC 30 MG/ML VIAL IVP PRN ×2 (02:20→08:04)
[2019-02-27] MEDS: DIPHENHYDRAMINE HCL 50 MG/ML VIAL IVP PRN ×2 (02:20→08:03)
[2019-02-27] MEDS: LORAZEPAM 2 MG/ML VIAL IV PRN (04:25)
[2019-02-27] MEDS: METHYLPREDNISOLONE PF 125MG/VIAL IVP SCH (04:45)
[2019-02-27 06:40] LABS: ABSOLUTE NEUTROPHIL COUNT 5.14; HEMATOCRIT 29.6 % (35.0-47.0); HEMOGLOBIN 8.5 gm/dl (11.6-16.0); MEAN CORPUSCULAR HEMOGLOBIN 23.5 pg (27-33); MEAN CORPUSCULAR HGB CONC 28.7 g/dl (32-36); MEAN PLATELET VOLUME 9.5 fl (7.4-10.4); PLATELET COUNT 394 K/uL (130-400); RED BLOOD COUNT 3.61 M/uL (3.80-5.40); WHITE BLOOD COUNT W/O DIFF 6.1 K/uL (4.2-12.2)
[2019-02-27] MEDS: IPRATROPIUM BR 0.02% NEB (0.5MG) INH SCH (06:40)
[2019-02-27 07:01] LABS: ANISOCYTOSIS 3+; HYPOCHROMIA 1+; MICROCYTOSIS 1+; PLATELET ESTIMATE NORMAL (NORMAL)
[2019-02-27] MEDS: ACETAMINOPHEN 325 MG TAB PO PRN (08:03)
--- NOTE | 2019-02-27 08:06 | Discharge Note ---
VTE H&P Assessment - Risk for VTE Risk for VTE: Yes Risk Level: Moderate Risk Assessment Date: 02/25/19 Risk Assessment Time: 12:20 VTE Orders Placed or Will Be Placed: Yes Discharge Medications - Discharge Medications Prescriptions: Montelukast Sodium [Singulair] 10 mg PO QHS #30 tab Albuterol Sulfate [Proair Hfa] 2 puff IH Q4HR PRN #1 inhaler PRN Reason: Asthma Dextromethorphan Hb/Doxylamine [Robitussin Nighttime Cough Dm] 10 ml PO Q4HR #230 ml Azithromycin 250 mg PO DAILY #6 tablet Loratadine [Claritin] 10 mg PO DAILY #30 tablet Prednisone [Prednisone 10Mg] 10 mg PO ASDIR #30 tab Ropinirole HCl [Requip] 4 mg PO TID #30 tablet Tiotropium [place] [Spiriva Respimat] 2 puff IH DAILY #1 mist.inhal Sertraline HCl [Zoloft] 25 mg PO DAILY #30 tablet Home Medications: Ambulatory Orders Albuterol Sulfate 0.083% [Neb] [Albuterol Sulfate] 2.5 mg INH RESP.Q1H PRN #30 nebulization solution 05/29/18 [Last Taken 02/25/19] Acetaminophen [Tylenol 325Mg] 650 mg PO Q6H PRN tablet 02/27/19 [Last Taken Unknown] Albuterol Sulfate [Proair Hfa] 2 puff IH Q4HR PRN #1 inhaler 02/27/19 [Last Taken Unknown] Ascorbic Acid/Ascorbate Sodium [Vit C-Brigitte Hips 500 mg Chew Tb] 1,000 mg PO DAILY #60 tab.chew 02/27/19 [Last Taken Unknown] Azithromycin 250 mg PO DAILY #6 tablet 02/27/19 [Last Taken Unknown] Dextromethorphan Hb/Doxylamine [Robitussin Nighttime Cough Dm] 10 ml PO Q4HR #230 ml 02/27/19 [Last Taken Unknown] Ferrous Sulfate 325 mg PO DAILY #30 tab 02/27/19 [Last Taken Unknown] Fluticasone/Vilanterol 200/25 [Breo Ellipta 200-25 Mcg INH] 1 puff INH DAILY #0 inhaler 02/27/19 [Last Taken Unknown] Loratadine [Claritin] 10 mg PO DAILY #30 tablet 02/27/19 [Last Taken Unknown] Montelukast Sodium [Singulair] 10 mg PO QHS #30 tab 02/27/19 [Last Taken Unknown] Prednisone [Prednisone 10Mg] 10 mg PO ASDIR #30 tab 02/27/19 [Last Taken Unknown] Ropinirole HCl [Requip] 4 mg PO TID #30 tablet 02/27/19 [Last Taken Unknown] Sertraline HCl [Zoloft] 25 mg PO DAILY #30 tablet 02/27/19 [Last Taken Unknown] Tiotropium [place] [Spiriva Respimat] 2 puff IH DAILY #1 mist.inhal 02/27/19 [Last Taken Unknown] Discharge Note - Date Date of Discharge Note: 02/27/19 Disposition: Home, Self-Care Condition: (2) Stable Instructions: Dyspnea (ED) Additional Instructions: New patient appointment with Sabi Santana NP on March 05 at 10:00am in the [place] Office. Address: [address] [place] [address]. . Please complete and bring all new patient paperwork with you to this appointment. Appointment with Dr. Jennifer Turner (Pulmonology) at [facility] March 12 at 11:00am. . Please complete and bring all new patient paperwork with you to this appointment. Please start iron ferrous sulfate 325 mg one a day OTC and vit C 1000 mg per day Prescriptions: Montelukast Sodium [Singulair] 10 mg PO QHS #30 tab Albuterol Sulfate [Proair Hfa] 2 puff IH Q4HR PRN #1 inhaler PRN Reason: Asthma Dextromethorphan Hb/Doxylamine [Robitussin Nighttime Cough Dm] 10 ml PO Q4HR #230 ml Azithromycin 250 mg PO DAILY #6 tablet Loratadine [Claritin] 10 mg PO DAILY #30 tablet Ferrous Sulfate 325 mg PO DAILY #30 tab Prednisone [Prednisone 10Mg] 10 mg PO ASDIR #30 tab Ropinirole HCl [Requip] 4 mg PO TID #30 tablet Tiotropium [place] [Spiriva Respimat] 2 puff IH DAILY #1 mist.inhal Ascorbic Acid/Ascorbate Sodium [Vit C-Brigitte Hips 500 mg Chew Tb] 1,000 mg PO DAILY #60 tab.chew Sertraline HCl [Zoloft] 25 mg PO DAILY #30 tablet Forms: Patient Portal Access Activity at Discharge: Increase Activity as Tolerated Diet at Discharge: Regular Diet
[2019-02-27] MEDS: ENOXAPARIN 40 MG/0.4 ML SYR SQ SCH (08:55)
[2019-02-27] MEDS: ROPINIROLE HCL 1 MG TABLET PO SCH (09:00)
[2019-02-27] MEDS: LORATADINE 10 MG TABLET PO SCH (09:00)
[2019-02-27] MEDS: AZITHROMYCIN 500 MG TABLET PO SCH (09:00)
--- NOTE | 2019-02-28 14:31 | Discharge Summary ---
DATE: 02/27/2019 DISCHARGE DIAGNOSES: 1. Right upper lobe pneumonia, subtle. 2. Acute exacerbation of asthma. 3. Anemia. Hemoglobin is 8.5 and stable. 4. Anxiety. ATTENDING PHYSICIAN: Raheem Hester DO, just taking over on the day of discharge. REASON FOR HOSPITALIZATION: Dyspnea. The patient states that she became very short of breath about 1 hour prior to arrival to the emergency department. She also has a vocal cord dysfunction and history of asthma. She has had hospital admissions for asthma in the past. She states that she was ill for about a month with a cough and congestion. She was admitted by Dr. Jennings in the emergency department with a diagnosis of exacerbation of asthma. SIGNIFICANT FINDINGS: Chest x-ray negative. CTA of the chest was negative for PE but did show a subtle infiltrate, perihilar right upper lobe. She also had a soft tissue neck x-ray, unremarkable soft tissues of the neck. WBC initially was 4400, hemoglobin 8.8. On 02/27/2019 the hemoglobin is stable at 8.5, white count 6100. She had a blood gas done in this hospitalization, pH was 7.42, PO2 was 88, PCO2 was 26, bicarb was 16.8 on room air from the right wrist. Her electrolytes, the last set, showing potassium 3.8, sodium 136, CO2 21, anion gap 14, glucose 163 most likely up because of Solu-Medrol use. She also had iron done which was low at 12, total iron binding capacity 436, percent saturation 2%. AST 22, ALT 16. Thyroid is normal at 0.64. Procalcitonin 0.02 which goes against antibiotic use. However, with the findings on the CT scan, we treated with antibiotics, Rocephin and azithromycin. She had troponin T done x2, which were negative. She had some MRSA cultures done too, pending. THERAPY PROVIDED: She was given IV Rocephin, oral azithromycin, nebulizer treatments of DuoNeb q.4 h. She was also started on Breo Ellipta in the hospital and given IV Solu-Medrol 60 mg q.8 h. She was also started on Singulair and Claritin. A consultation with Pulmonology who wrote prescriptions for Breo Ellipta 1 puff daily and Spiriva inhalation 1.25 mg 2 puffs daily. I am going to also write a prescription for albuterol as a rescue inhaler. Prednisone tapering from 40 mg at 3-day increments. She is also getting a prescription for iron and vitamin C for anemia. HOSPITAL COURSE: The patient gradually improved. Refusing her breathing treatments at the last day of discharge. CONDITION ON DISCHARGE: Improved but still coughing. We will continue azithromycin 250 mg a day for 6 days, one Z-Gonzalo. Prednisone taper for 40 mg a day for 3 days, 30 mg a day for 3 days, 20 mg a day for 3 days, and 10 mg a day for 3 days. Iron therapy 325 daily. Vitamin C 1000 mg daily for her anemia. Breo Ellipta and Spiriva inhalers were prescribed by Pulmonary. We are going to continue the Requip for restless leg which I believe was started in the hospital but I am not sure. Also started sertraline for her anxiety, which she says she has a lot of problems with, 25 mg once a day. Cough syrup, Robitussin DM 10 mL every 4 hours p.r.n. DISCHARGE INSTRUCTIONS: Follow up with Sabi on Tuesday on 03/05/2019 at 10 a.m. Follow up with [place], Dr. Turner, 03/12/2019 at 11 a.m. YOLA
--- NOTE | 2019-02-28 15:20 | Medical Records Consult ---
DATE OF CONSULTATION: 02/26/2019 REASON FOR CONSULTATION: Asthma/vocal cord dysfunction. HISTORY OF PRESENT ILLNESS: This is a 48-year-old woman who has been diagnosed with asthma 9 years ago. She previously was admitted to [facility]. At that time, she even required Heliox. No intubation or ICU admission at that time but she had a lengthy admission. She was told that she does have severe persistent asthma. Since then, she was seen by ENT and had a workup for a vocal cord dysfunction. Her asthma has been not very well controlled at home. She wakes up almost every night coughing and wheezing. She does use her Ventolin as needed and she has been taking her Advair Diskus of 500 twice a day. She does snore. She wakes up tired in the morning. She sleeps most of the time and she has nonrestorative sleep. She was told that she has witnessed apnea and she has [place] Sleepiness Score of 16. She never smoked. She has no change in her environment. She had no allergy test before. She lives with her 2 kids and , and there is no change in her environment. No recent remodeling. She has 2 cats and has had them for a long time. She never had any type of allergy test. She never smoked. 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 She was started on Requip with some help. No fever, no chills, no night sweating. She has cough that is mostly nonproductive. She underwent a chest x-ray. Images were reviewed and showing possible pneumonia. PAST MEDICAL HISTORY: Asthma, allergic rhinitis, and restless leg syndrome. ALLERGIES: LATEX, MORPHINE, MACROBID, DECADRON, CYMBALTA, LEVAQUIN, AMOXICILLIN, AUGMENTIN, LITHIUM, REGLAN. FAMILY HISTORY: Her son and her grandmother have asthma. SOCIAL HISTORY: She never smoked. She does not work. No IV drug abuse. No alcohol. She has 2 cats at home. She is not sure if she is allergic to cats. REVIEW OF SYSTEMS: Fourteen elements of review of systems were reviewed and appeared to be negative . PHYSICAL EXAMINATION: GENERAL: Awake, alert, oriented x3. Not in acute distress. Not cyanosed. Not jaundiced. Not pale. HEENT: Head atraumatic, normocephalic. Pupils are equal and reactive to light and accommodation. Extraocular movements are intact. NECK: Supple. No lymphadenopathy appreciated. CHEST: Wheezing bilateral. decreased air movements bilateral. Equal air entry. CARDIOVASCULAR: S1, S2 are regular rate and rhythm. ABDOMEN: Soft, nontender. Bowel sounds present. EXTREMITIES: No edema, no clubbing, no cyanosis. NEUROLOGIC: Cranial nerves II-XII intact. Sensation and motor strength appear to be intact and bilateral. ASSESSMENT: 1. Acute asthma exacerbation. 2. Vocal cord dysfunction. 3. Excessive data and sleepiness and snoring with underlying restless leg syndrome. 4. Obesity. 5. Possible pneumonia. PLAN: 1. The patient for sure has clinical impression, has underlying asthma that is not very well controlled. She does have also vocal cord dysfunction. To differentiate between both, it is going to be very difficult on a clinical basis. Currently she is on IV steroids. I will continue that. Will need to check q.shift peak flow and switch to p.o. after her peak flow reach 300 mL mily. Then, after she switched to p.o. prednisone and usually needs to be on 60 mg of prednisone once a day in the morning, she needs to be watched for 24 hours in the hospital on p.o. prednisone before she is discharged. 2. Possible pneumonia. Clinically she is very unlikely to have pneumonia. She is already on azithromycin. I will continue that for a total of 7 days. 3. Asthma is not very well controlled and very likely to be related to 2 reasons. She has underlying sleep apnea that is not very well treated. She does have all the symptoms suggestive of obstructive sleep apnea including restless leg syndrome, witnessed apnea, snoring, and EDS with [place] Sleepiness Scale of 16/24. This is very likely to be an obstructive sleep apnea. She needs to be managed for that and she needs to have a sleep study as an outpatient. 4. Reduce her body weight to ideal body weight would be beneficial, and this will be discussed with the patient later as an outpatient. 5. The patient needs later when she is off prednisone as an outpatient, to have further workup for her asthma phenotype, and this would be done as an outpatient with Ig levels, CBC with eosinophils, but when she is off prednisone. 6. I agree with Mj, needs to be continued. 7. Further evaluation for her vocal cord dysfunction as an outpatient with ENT. 8. For her home medication, she is on Advair and I would suggest to change the Advair to Breo 200 once a day and need to add Spiriva. There is a very important role of Spiriva in managing this patient with asthma that will be beneficial. 9. We will schedule her for a PFT as an outpatient. 10. Will have also a follow up with us in the office here at [facility] upon discharge within 1-2 weeks. Thank you very much for giving me the opportunity to take care of this patient. Please do not hesitate to give us a call if any question. Thank you very much Dr. Aleman. YOLA
== END 2019-02-27 09:10 | disposition home or self-care (01) ==
LOC: ER 03:24 → MEDSURG 05:07
PROVIDERS: ADMIT Internal Medicine; ATTEND Internal Medicine
DX: J45.901 Unspecified asthma with (acute) exacerbation (principal); J38.1 Polyp of vocal cord and larynx; R06.02 Shortness of breath; K21.9 Gastro-esophageal reflux disease without esophagitis; M19.90 Unspecified osteoarthritis, unspecified site; M79.7 Fibromyalgia; G25.81 Restless legs syndrome; Z86.14 Personal history of Methicillin resistant Staphylococcus aureus infection; F41.9 Anxiety disorder, unspecified
CPT/HCPCS: 36600; 70360; 71046; 71275; 80053; 82375; 82803; 83550; 84145; 84443; 84484; 85027; 85379; 90686; 93005; 93010; 94640; 94660; 96374; 96375; 99217; 99220; 99285; J0456; J0696; J1200; J1650; J1885; J2930; J7030; J7050; J7613

== ENCOUNTER 2019-04-16 22:36 | Observation (INO) | payer BC ==
[2019-04-16] MEDS ORDERED: IPRATROPIUM/ALBUTEROL (0.5MG/3MG) NEB INH ONE (22:49)
[2019-04-16] MEDS ORDERED: METHYLPREDNISOLONE PF 125MG/VIAL IVP ONE (22:49)
--- NOTE | 2019-04-16 22:57 | Emergency Department Record ---
History of Present Illness - General Chief Complaint: Shortness of breath Stated Complaint: IRAJ Time Seen by Provider: 04/16/19 22:43 Source: Patient Mode of Arrival: Ambulatory Limitations: No limitations - History of Present Illness Initial Comments: The patient is here due to a one hour hx of SOB due to perceived asthma. The onset was after arguing and yelling at her . The patient does have a hx of adult onset of asthma along with vocal cord dysfunction. She has been admitted to the hospital for it but never intubated. The patient did have an appointment with a sketch maker 7 weeks ago but has not followed up for the repeat visit. Presently she is complaining of SOB but also has a hoarse voice and is speaking in full sentences. MD Complaint: "Asthma attack", Shortness of breath Onset/Timin -: Hour(s) Quality: Aching Consistency: Getting worse Improves With: Nothing Worsens With: Exertion Known History Of: Asthma Associated Symptoms: Denies other symptoms Treatments Prior to Arrival: Bronchodilator - Related Data Home Oxygen Therapy: No Previous Rx's Medication Instructions Recorded Albuterol Sulfate 0.083% [Neb] 2.5 mg INH RESP.Q1H PRN #30 05/29/18 [Albuterol Sulfate] nebulization solution Acetaminophen [Tylenol 325Mg] 650 mg PO Q6H PRN tablet 02/27/19 Albuterol Sulfate [Proair Hfa] 2 puff IH Q4HR PRN #1 inhaler 02/27/19 Ascorbic Acid/Ascorbate Sodium 1,000 mg PO DAILY #60 tab.chew 02/27/19 [Vit C-Brigitte Hips 500 mg Chew Tb] Azithromycin 250 mg PO DAILY #6 tablet 02/27/19 Dextromethorphan Hb/Doxylamine 10 ml PO Q4HR #230 ml 02/27/19 [Robitussin Nighttime Cough Dm] Ferrous Sulfate 325 mg PO DAILY #30 tab 02/27/19 Fluticasone/Vilanterol 200/25 1 puff INH DAILY #0 inhaler 02/27/19 [Breo Ellipta 200-25 Mcg INH] Loratadine [Claritin] 10 mg PO DAILY #30 tablet 02/27/19 Montelukast Sodium [Singulair] 10 mg PO QHS #30 tab 02/27/19 Prednisone [Prednisone 10Mg] 10 mg PO ASDIR #30 tab 02/27/19 Ropinirole HCl [Requip] 4 mg PO TID #30 tablet 02/27/19 Sertraline HCl [Zoloft] 25 mg PO DAILY #30 tablet 02/27/19 Tiotropium [place] [Spiriva 2 puff IH DAILY #1 mist.inhal 02/27/19 Respimat] Allergies Allergy/AdvReac Type Severity Reaction Status Date / Time latex Allergy Unknown BLISTERS Verified 02/25/19 03:35 morphine Allergy Unknown RASH Verified 02/25/19 03:35 nitrofurantoin Allergy Unknown MUSCLE PAIN Verified 02/25/19 03:35 nitrofurantoin Allergy Unknown MUSCLE PAIN Verified 02/25/19 03:35 macrocrystalline dexamethasone [From Decadron] Allergy BEHAVIORAL Verified 02/25/19 03:35 CHANGES dexamethasone sod phosphate Allergy BEHAVIORAL Verified 02/25/19 03:35 [From Decadron] CHANGES duloxetine HCl Allergy BEHAVIORAL Verified 02/25/19 03:35 [From Cymbalta] CHANGES levofloxacin [From Levaquin] Allergy RASH Verified 02/25/19 03:35 amoxicillin [From Augmentin] AdvReac RASH Verified 02/25/19 03:36 clavulanic acid AdvReac RASH Verified 02/25/19 03:36 [From Augmentin] lithium AdvReac ALTERED Verified 02/25/19 03:36 MENTAL STATUS metoclopramide HCl AdvReac HYPERSENSIT Verified 02/25/19 03:35 [From Reglan] IVITY Travel Screening - Travel/Exposure Within Last 30 Days Have you traveled within the last 30 days?: No - Travel/Exposure Within Last Year Have you traveled outside the [place] in the last year?: No - Additonal Travel Details Have you been exposed to anyone with a communicable illness?: No - Travel Symptoms Symptom Screening: None Review of Systems Constitutional: Denies: Chills, Fever Eyes: Denies: Eye discharge ENT: Denies: Congestion Respiratory: Reports: Dyspnea. Denies: Cough Cardiovascular: Denies: Arrhythmia Endocrine: Denies: Fatigue Gastrointestinal: Denies: Nausea Genitourinary: Denies: Dysuria Musculoskeletal: Denies: Arthralgia Past Medical History - SOCIAL HISTORY Smoking Status: Never smoker Alcohol Use: None Drug Use: None - RESPIRATORY Hx Respiratory Disorders: Yes Hx Asthma: Yes Comment:: "vocal cord disorder" - CARDIOVASCULAR Hx Cardio Disorders: No - NEURO Hx Neuro Disorders: Yes Hx Seizures: Yes (2013) - GI Hx GI Disorders: Yes Hx Reflux: Yes Comment:: gastric bypass - Hx Genitourinary Disorders: No - ENDOCRINE Hx Endocrine Disorders: No - MUSCULOSKELETAL Hx Musculoskeletal Disorders: Yes Hx Arthritis: Yes Hx Fibromyalgia: Yes Comment:: RLS - PSYCH Hx Psych Problems: Yes Hx Anxiety: Yes - HEMATOLOGY/ONCOLOGY Hx Hematology/Oncology Disorders: No Family Medical History Any Significant Family History?: No Hx Cancer: Mother Hx Heart Disease: Grandparents Physical Exam - General General Appearance: Alert, Oriented x3, Cooperative, No acute distress (The patient is speaking in full sentences without difficulty with a hoarse voice and with a RA biox of 100%.) - Head Head exam: Atraumatic, Normocephalic - Eye Eye exam: Normal appearance, PERRL - ENT Throat exam: Normal inspection. negative: Tonsillar erythema, Tonsillar exudate - Neck Neck exam: Normal inspection, Full ROM. negative: Lymphadenopathy, Tenderness - Respiratory Respiratory exam: Wheezes (There are minor wheezes in the lower lobes.). negative: Normal lung sounds bilaterally, Accessory muscle use, Decreased breath sounds, Prolonged expiratory, Respiratory distress, Rhonchi, Stridor - Cardiovascular Cardiovascular Exam: Regular rate, Normal rhythm, Normal heart sounds. negative: Diastolic murmur, Systolic murmur - GI/Abdominal GI/Abdominal exam: Soft, Normal bowel sounds. negative: Tenderness - Extremities Extremities exam: Normal inspection, Full ROM, Normal capillary refill. negative: Tenderness - Back Back exam: Reports: Normal inspection - Neurological Neurological exam: Alert, Normal gait. negative: Abnormal gait, Motor sensory deficit - Psychiatric Psychiatric exam: Anxious Course Vital Signs 04/16/19 22:39 Temperature 98.5 F Pulse Rate 92 H Respiratory 22 Rate Blood Pressure 115/97 Pulse Ox 100 - Reevaluation(s) Reevaluation #1: The patient is doing better at this time but still is coughing intermittently and has a hoarse voice. She is becoming intermittently very anxious at times which seems to make the hoarseness and perceived vocal cord dysfunction worse. On exam her lung aeration is good but she does have mild end expiratory wheezes in the lower lobes. Due to the perceived wheezing and vocal cord dysfunction I did recommend a short stay admission and the patient did agree. 04/17/19 00:02 Reevaluation #2: The patient is doing very well at this time. She is laying flat trying to sleep and is not coughing or SOB. Her RA biox is 100% and she is still mildly hoarse when answering questions. 04/17/19 00:11 Medical Decision Making - Data Complexity MDM Data: Labs Ordered and/or Reviewed, X-Ray Ordered and/or Reviewed - Lab Data Result diagrams: 04/16/19 22:50 04/16/19 22:50 - Radiology Data Radiology results: Report reviewed (CXR: Neg) Disposition Disposition: Admit Clinical Impression: Asthma exacerbation Qualifiers: Asthma severity: unspecified severity Asthma persistence: unspecified Qualified Code(s): J45.901 - Unspecified asthma with (acute) exacerbation Disposition: Still a Patient at [facility] Decision to Admit: Admit from ER Decision to Admit Date: 04/17/19 Decision to Admit Time: 00:04 Accepting Physician: Love Time Discussed w/Accepting Physician: 00:05 Condition: (2) Stable Time of Disposition: 00:05 Quality - Quality Measures Quality Measures: N/A - Blood Pressure Screening View Details: Yes Does Patient Have Any of the Following: No Blood Pressure Classification: Hypertensive Reading Systolic Measurement: 115 Diastolic Measurement: 97 Screening for High Blood Pressure: < First Hypertensive BP, F/U Documented > [G8950] First Hypertensive Follow-up Interventions: Referral to alternative/primary care provider.
[2019-04-16] MEDS ORDERED: ALBUTEROL SULFATE (0.083%) 2.5 MG/3 ML NEB INH ONE ×2 (22:58→23:38)
[2019-04-16 23:11] LABS: ABSOLUTE NEUTROPHIL COUNT 1.98; BASO % 0.5 % (0-6); GRAN % 46.4 % (47-80); HEMATOCRIT 34.6 % (35.0-47.0); HEMOGLOBIN 10.4 gm/dl (11.6-16.0); LYMPH % 37.8 % (16-45); MEAN CELL VOLUME 85.2 fl (81-97); MEAN CORPUSCULAR HEMOGLOBIN 25.6 pg (27-33); MEAN CORPUSCULAR HGB CONC 30.1 g/dl (32-36); MEAN PLATELET VOLUME 8.3 fl (7.4-10.4); MONO % 11.3 % (0-9); PLATELET COUNT 293 K/uL (130-400); RED BLOOD COUNT 4.06 M/uL (3.80-5.40); WHITE BLOOD COUNT W/O DIFF 4.3 K/uL (4.2-12.2)
[2019-04-16 23:23] LABS: BLOOD UREA NITROGEN 7 mg/dL (6-20); CREATININE 0.6 mg/dL (0.5-0.9); EST GLOMERULAR FILTRATION RATE > 60 mL/min
[2019-04-16 23:24] LABS: TOTAL PROTEIN 6.7 g/dL (6.6-8.7)
--- NOTE | 2019-04-16 23:25 | RADIOLOGY REPORT ---
EXAMINATION: Two View Chest Radiographs EXAM DATE: 04/16/2019 11:14 PM TECHNIQUE: Frontal and lateral views INDICATION: IRAJ COMPARISON: None ENCOUNTER: Not applicable FINDINGS: The heart, mediastinum, and pulmonary vasculature are normal. No lung consolidation or pleural effu sions are present. IMPRESSION: No acute disease process Dictated by: Mary Garland DO on 04/16/2019 11:23 PM. .
[2019-04-16 23:26] LABS: GLUCOSE,RANDOM 118 mg/dL (74-109)
[2019-04-16 23:28] LABS: ALB/GLOB RATIO 1.4 (1.1-1.8); ALBUMIN 3.9 g/dL (4.0-5.0); ALKALINE PHOSPHATASE 106 U/L (35-104); ALT/SGPT 18 U/L (<33); AST/SGOT 22 U/L (10.0-35.0)
[2019-04-16] MEDS ORDERED: MAGNESIUM SULFATE 16 MEQ in 0.9 % SODIUM CHLORIDE 100ML 100 ML IV ONE (23:58)
[2019-04-17] MEDS ORDERED: ACETAMINOPHEN 500 MG TABLET PO PRN (00:28)
[2019-04-17] MEDS: ROPINIROLE HCL 1 MG TABLET PO SCH ×2 (01:29→09:45)
[2019-04-17] MEDS: IPRATROPIUM/ALBUTEROL (0.5MG/3MG) NEB INH SCH ×3 (01:36→09:43)
--- NOTE | 2019-04-17 08:33 | Discharge Note ---
VTE H&P Assessment - Risk for VTE Risk for VTE: Yes Risk Level: Moderate Risk Assessment Date: 04/17/19 Risk Assessment Time: 08:28 VTE Orders Placed or Will Be Placed: Yes Discharge Medications - Discharge Medications Prescriptions: Albuterol Sulfate 0.083% [Neb] [Albuterol Sulfate] 2.5 mg INH Q4HR PRN #30 nebulization solution PRN Reason: Difficulty In Breathing Azithromycin 250 mg PO DAILY #6 tablet Prednisone [Prednisone 20Mg] 20 mg PO BID #10 tab Home Medications: Ambulatory Orders Acetaminophen [Tylenol 325Mg] 650 mg PO Q6H PRN tablet 02/27/19 [Last Taken Unknown] Albuterol Sulfate [Proair Hfa] 2 puff IH Q4HR PRN #1 inhaler 02/27/19 [Last Taken Unknown] Ascorbic Acid/Ascorbate Sodium [Vit C-Brigitte Hips 500 mg Chew Tb] 1,000 mg PO DAILY #60 tab.chew 02/27/19 [Last Taken Unknown] Dextromethorphan Hb/Doxylamine [Robitussin Nighttime Cough Dm] 10 ml PO Q4HR #230 ml 02/27/19 [Last Taken Unknown] Ferrous Sulfate 325 mg PO DAILY #30 tab 02/27/19 [Last Taken Unknown] Loratadine [Claritin] 10 mg PO DAILY #30 tablet 02/27/19 [Last Taken Unknown] Montelukast Sodium [Singulair] 10 mg PO QHS #30 tab 02/27/19 [Last Taken Unknown] Ropinirole HCl [Requip] 4 mg PO TID #30 tablet 02/27/19 [Last Taken Unknown] Sertraline HCl [Zoloft] 25 mg PO DAILY #30 tablet 02/27/19 [Last Taken Unknown] Acetaminophen [Tylenol 500Mg Tab] 500 mg PO Q6H PRN tablet 04/17/19 [Last Taken Unknown] Albuterol Sulfate 0.083% [Neb] [Albuterol Sulfate] 2.5 mg INH Q4HR PRN #30 nebulization solution 04/17/19 [Last Taken Unknown] Azithromycin 250 mg PO DAILY #6 tablet 04/17/19 [Last Taken Unknown] Prednisone [Prednisone 20Mg] 20 mg PO BID #10 tab 04/17/19 [Last Taken Unknown] Discharge Note - Date Date of Discharge Note: 04/17/19 Disposition: Home, Self-Care Condition: (2) Stable Additional Instructions: follow up with Sabi Santana in 2 to 7 days prednisone 20 mg BId for 5 days zpak continue home meds Forms: Patient Portal Access Activity at Discharge: Increase Activity as Tolerated Diet at Discharge: Regular Diet
[2019-04-17] MEDS ORDERED: METHYLPREDNISOLONE PF 125MG/VIAL IVP SCH (10:00)
[2019-04-17] MEDS ORDERED: BREO (FLUTICASONE/VILANTEROL) 200MCG/25MCG INHALER INH SCH (10:00)
[2019-04-17] MEDS ORDERED: LORATADINE 10 MG TABLET PO SCH (10:00)
[2019-04-17] MEDS ORDERED: SERTRALINE HCL 50 MG TABLET PO SCH (10:00)
[2019-04-17] MEDS ORDERED: UMECLIDINIUM BROMIDE (INCRUSE) 62.5MCG IH SCH (10:00)
[2019-04-17] MEDS ORDERED: ENOXAPARIN 40 MG/0.4 ML SYR SQ SCH (10:00)
[2019-04-17] MEDS ORDERED: MONTELUKAST SODIUM 10MG TABLET PO SCH (22:00)
--- NOTE | 2019-04-18 09:51 | Discharge Summary ---
DISCHARGE DIAGNOSES: 1. Acute bronchitis. 2. Exacerbation of asthma. 3. Chronic laryngitis. ATTENDING PHYSICIAN: Raheem Hester DO REASON FOR HOSPITALIZATION: This 48-year-old female got in an argument with her , became short of breath, wheezing. Came to the ER for evaluation. Seen Dr. Jennings. Admitted to the hospital for exacerbation of asthma and chronic laryngitis. SIGNIFICANT FINDINGS: Chest x-ray is negative. WBC 4300, hemoglobin 10.4, potassium 3.5, alcohol level 0.13, pulse ox was good throughout the night. She still has her hoarse voice and a little bit of coughing. Because of that, we will start her on Z-Gonzalo. THERAPY PROVIDED: She was given 1 dose of IV Solu-Medrol in the emergency department, breathing treatments, and she is feeling much better. HOSPITAL COURSE: Improved. At this point, she is stable and can go home for further treatment. Follow up with Sabi Santana, her primary, in 2-7 days. Prednisone 20 mg b.i.d. for 5 days, Z-Gonzalo start today 2 pills initially and 1 pill a day after that until it is gone. Continue her home medications of albuterol nebulization q.4 h. p.r.n. or the albuterol inhaler 2 puffs q.4 h. p.r.n. when she is mobile. Drink plenty of fluids. YOLA
--- NOTE | 2019-04-18 11:40 | Discharge Summary ---
DISCHARGE DATE: 04/17/2019 DISCHARGE DIAGNOSES: 1. Acute exacerbation of asthma. 2. Bronchitis. 3. Acute intoxication. ATTENDING PHYSICIAN: Raheem Hester DO REASON FOR HOSPITALIZATION: Hoarse voice, shortness of breath, cough, and an argument with her which caused her to wheeze. SIGNIFICANT FINDINGS: Chest x-ray revealed no acute disease process. WBC 4300, hemoglobin 10.4. The kidney function is good. BUN 7, creatinine 0.6, potassium 3.5, glucose 118 random. Toxicology, ethyl alcohol is 0.13. THERAPY PROVIDED: The patient was given IV Solu-Medrol, breathing treatments, oxygen. Feeling much better at my evaluation. HOSPITAL COURSE: Improved. DISCHARGE INSTRUCTIONS: Follow up with Sabi Santana in 2-7 days. Will discharge with a Edith-Gonzalo and prednisone 20 mg b.i.d. for 5 days. MTDD
== END 2019-04-17 10:14 | disposition home or self-care (01) ==
LOC: ER 22:36 → MEDSURG 04-17 00:23
PROVIDERS: ADMIT Internal Medicine; ATTEND Internal Medicine
DX: J45.901 Unspecified asthma with (acute) exacerbation (principal); J20.9 Acute bronchitis, unspecified; R06.02 Shortness of breath; R49.0 Dysphonia; J37.0 Chronic laryngitis; K21.9 Gastro-esophageal reflux disease without esophagitis; M19.90 Unspecified osteoarthritis, unspecified site; M79.7 Fibromyalgia; G25.81 Restless legs syndrome; Z86.69 Personal history of other diseases of the nervous system and sense organs; Z98.84 Bariatric surgery status
CPT/HCPCS: 71046; 80053; 80320; 85025; 94640; 96374; 96375; 99220; 99285; J1650; J2930; J7613

== ENCOUNTER 2019-05-28 18:03 | Emergency (ER) | payer BC ==
--- NOTE | 2019-05-28 18:13 | Emergency Department Record ---
History of Present Illness - General Chief complaint: Flank Pain Stated complaint: BOTH SIDE FLANK PAIN Time Seen by Provider: 05/28/19 18:04 Source: Patient Mode of Arrival: Ambulatory Limitations: No limitations - History of Present Illness Initial comments: 48 yo female presents to ED for evaluation of bilateral flank pain symptoms that began early this morning (3:00 AM). Patient denies fevers, chills, or urinary symptoms, does report loose stools x 1 month. Patient reports previous appendectomy, martina, and hyst. previously. Patient denies nausea/vomiting symptoms as well, denies history of kidney stones. MD Complaint: Other Onset/Timin -: Hour(s) Radiation: L flank, R flank Severity: Moderate Quality: Aching Consistency: Constant Improves with: None Worsens with: None Patient : No Associated Symptoms: Denies other symptoms - Related Data Previous Rx's Medication Instructions Recorded Acetaminophen [Tylenol 325Mg] 650 mg PO Q6H PRN tablet 02/27/19 Albuterol Sulfate [Proair Hfa] 2 puff IH Q4HR PRN #1 inhaler 02/27/19 Ascorbic Acid/Ascorbate Sodium 1,000 mg PO DAILY #60 tab.chew 02/27/19 [Vit C-Brigitte Hips 500 mg Chew Tb] Ferrous Sulfate 325 mg PO DAILY #30 tab 02/27/19 Loratadine [Claritin] 10 mg PO DAILY #30 tablet 02/27/19 Montelukast Sodium [Singulair] 10 mg PO QHS #30 tab 02/27/19 Ropinirole HCl [Requip] 4 mg PO TID #30 tablet 02/27/19 Acetaminophen [Tylenol 500Mg Tab] 500 mg PO Q6H PRN tablet 04/17/19 Albuterol Sulfate 0.083% [Neb] 2.5 mg INH Q4HR PRN #30 04/17/19 [Albuterol Sulfate] nebulization solution Allergies Allergy/AdvReac Type Severity Reaction Status Date / Time latex Allergy Unknown BLISTERS Verified 05/28/19 18:12 morphine Allergy Unknown RASH Verified 05/28/19 18:12 nitrofurantoin Allergy Unknown MUSCLE PAIN Verified 05/28/19 18:12 nitrofurantoin Allergy Unknown MUSCLE PAIN Verified 05/28/19 18:12 macrocrystalline dexamethasone [From Decadron] Allergy BEHAVIORAL Verified 05/28/19 18:12 CHANGES dexamethasone sod phosphate Allergy BEHAVIORAL Verified 05/28/19 18:12 [From Decadron] CHANGES duloxetine HCl Allergy BEHAVIORAL Verified 05/28/19 18:12 [From Cymbalta] CHANGES levofloxacin [From Levaquin] Allergy RASH Verified 05/28/19 18:12 amoxicillin [From Augmentin] AdvReac RASH Verified 05/28/19 18:12 clavulanic acid AdvReac RASH Verified 05/28/19 18:12 [From Augmentin] lithium AdvReac ALTERED Verified 05/28/19 18:12 MENTAL STATUS metoclopramide HCl AdvReac HYPERSENSIT Verified 05/28/19 18:12 [From Reglan] IVITY Review of Systems Constitutional: Denies: Chills, Fever, Malaise, Night sweats Eyes: Denies: Eye discharge, Eye pain ENT: Denies: Congestion, Ear pain, Epistaxis Respiratory: Denies: Cough, Dyspnea Cardiovascular: Denies: Chest pain, Dyspnea on exertion Endocrine: Denies: Fatigue, Heat or cold intolerance Gastrointestinal: Reports: Abdominal pain. Denies: Nausea, Vomiting Genitourinary: Denies: Incontinence, Retention Musculoskeletal: Reports: Back pain. Denies: Arthralgia Skin: Denies: Bruising, Change in color Neurological: Denies: Abnormal gait, Confusion, Headache, Tingling, Tremors Psychiatric: Denies: Anxiety Hematological/Lymphatic: Denies: Anemia, Blood Clots Past Medical History - SOCIAL HISTORY Smoking Status: Never smoker Alcohol Use: None Drug Use: None - RESPIRATORY Hx Respiratory Disorders: Yes Hx Asthma: Yes Hx Pulmonary Embolism: Yes Comment:: "vocal cord disorder" - CARDIOVASCULAR Hx Cardio Disorders: No - NEURO Hx Neuro Disorders: Yes Hx Seizures: Yes (2013) - GI Hx GI Disorders: Yes Hx Reflux: Yes Comment:: gastric bypass - Hx Genitourinary Disorders: No - ENDOCRINE Hx Endocrine Disorders: No - MUSCULOSKELETAL Hx Musculoskeletal Disorders: Yes Hx Arthritis: Yes Hx Fibromyalgia: Yes Comment:: RLS - PSYCH Hx Psych Problems: Yes Hx Anxiety: Yes - HEMATOLOGY/ONCOLOGY Hx Hematology/Oncology Disorders: No Family Medical History Any Significant Family History?: Yes Hx Cancer: Mother Hx Heart Disease: Grandparents Physical Exam - General General Appearance: Alert, Oriented x3, Cooperative, Mild distress Limitations: No limitations - Head Head exam: Atraumatic, Normocephalic, Normal inspection Head exam detail: negative: Abrasion, Contusion, Hernández's sign, General te nderness, Hematoma, Laceration - Eye Eye exam: Normal appearance. negative: Conjunctival injection, Periorbital swelling, Periorbital tenderness, Scleral icterus - ENT Ear exam: negative: Auricular hematoma, Auricular trauma Nasal Exam: negative: Active bleeding, Discharge, Dried blood, Foreign body Mouth exam: negative: Drooling, Laceration, Muffled voice, Tongue elevation - Neck Neck exam: Normal inspection. negative: Tenderness - Respiratory Respiratory exam: Normal lung sounds bilaterally. negative: Respiratory distress, Rhonchi, Stridor, Wheezes - Cardiovascular Cardiovascular Exam: Regular rate, Normal rhythm, Normal heart sounds - GI/Abdominal GI/Abdominal exam: Soft, Tenderness (Mild, diffuse TTP, no peritoneal signs, no rebound, no guarding.). negative: Rebound, Rigid - Rectal Rectal exam: Deferred - exam: Deferred - Extremities Extremities exam: Normal inspection. negative: Pedal edema, Tenderness - Back Back exam: Reports: CVA tenderness (R), CVA tenderness (L) - Neurological Neurological exam: Alert, Normal gait, Oriented X3 - Psychiatric Psychiatric exam: Normal affect, Normal mood - Skin Skin exam: Normal color. negative: Abrasion Type of lesion: negative: abrasion Course - Reevaluation(s) Reevaluation #1: 05/28/19 18:58 Laboratory studies were reviewed and appear grossly unremarkable for an acute process. Reevaluation #2: 05/28/19 19:49 CT Abdomen and Pelvis: Post-operative changes from hysterectomy, cholecystectomy Suspected prior gastric bypass Hiatal hernia Appendix not seen Patient was updated on all results, reports improvement in her pain symptoms and appears stable for discharge at this time. Medical Decision Making - Lab Data Result diagrams: 05/28/19 18:20 05/28/19 18:20 Disposition Disposition: Discharge Clinical Impression: Flank pain Disposition: Home, Self-Care Instructions: Flank Pain (ED) Additional Instructions: Return to ED if your symptoms worsen or if you have any concerns. Follow-up with your family doctor in 3-5 days as directed. Ibuprofen as directed for pain symptoms. Forms: Patient Portal Access Time of Disposition: 19:51 Quality - Quality Measures Quality Measures: N/A - Blood Pressure Screening Does Patient Have Any of the Following: No Blood Pressure Classification: Hypertensive Reading Systolic Measurement: 150 Diastolic Measurement: 99 Screening for High Blood Pressure: < First Hypertensive BP, F/U Documented > [G8950] First Hypertensive Follow-up Interventions: Referral to alternative/primary care provider.
[2019-05-28] MEDS: 0.9 % SODIUM CHLORIDE 1000ML 1,000 ML IV SCH (18:22)
[2019-05-28] MEDS: KETOROLAC 30 MG/ML VIAL IVP ONE (18:22)
[2019-05-28 18:34] LABS: ABSOLUTE NEUTROPHIL COUNT 2.65; BASO % 0.4 % (0-6); EOS % 2.6 % (0-6); GRAN % 56.3 % (47-80); HEMATOCRIT 38.4 % (35.0-47.0); HEMOGLOBIN 11.7 gm/dl (11.6-16.0); LYMPH % 34.3 % (16-45); MEAN CELL VOLUME 86.1 fl (81-97); MEAN CORPUSCULAR HEMOGLOBIN 26.2 pg (27-33); MEAN CORPUSCULAR HGB CONC 30.5 g/dl (32-36); MEAN PLATELET VOLUME 8.8 fl (7.4-10.4); MONO % 6.4 % (0-9); PLATELET COUNT 373 K/uL (130-400); RED BLOOD COUNT 4.46 M/uL (3.80-5.40); RED CELL DISTRIBUTION WIDTH 20.7 % (11.5-14.5); WHITE BLOOD COUNT W/O DIFF 4.7 K/uL (4.2-12.2)
[2019-05-28 18:40] LABS: BLOOD UREA NITROGEN 6 mg/dL (6-20); CREATININE 0.8 mg/dL (0.5-0.9); EST GLOMERULAR FILTRATION RATE > 60 mL/min
[2019-05-28 18:41] LABS: TOTAL PROTEIN 6.9 g/dL (6.6-8.7)
[2019-05-28 18:43] LABS: GLUCOSE,RANDOM 115 mg/dL (74-109)
[2019-05-28 18:45] LABS: ALT/SGPT 25 U/L (<33)
[2019-05-28 18:46] LABS: ALB/GLOB RATIO 1.4 (1.1-1.8); ALKALINE PHOSPHATASE 118 U/L (35-104); AST/SGOT 43 U/L (10.0-35.0)
[2019-05-28 19:08] LABS: URINE APPEARANCE CLEAR; URINE BILIRUBIN NEGATIVE (NEGATIVE); URINE BLOOD NEGATIVE (NEGATIVE); URINE COLOR YELLOW; URINE GLUCOSE (UA) NEGATIVE (NEGATIVE); URINE KETONE NEGATIVE (NEGATIVE); URINE LEUKOCYTE ESTERASE NEGATIVE (NEGATIVE); URINE NITRITE NEGATIVE (NEGATIVE); URINE PROTEIN NEGATIVE (NEGATIVE); URINE UROBILINOGEN 0.2 E.U./dL (0.20 - 1.00)
[2019-05-28] MEDS: ACETAMINOPHEN 1,000 MG/100 ML BTL IVPB ONE (19:17)
--- NOTE | 2019-05-28 19:44 | CT SCAN REPORT ---
EXAMINATION: CT Abdomen and Pelvis with IV Contrast EXAM DATE: 05/28/2019 6:53 PM TECHNIQUE: CT imaging of the abdomen and pelvis was performed with intravenous contrast. Coronal and sagittal images were reconstructed. IV Contrast: The amount and type of contrast are recorded in the medical record. INDICATION: flank pain/abdominal pain COMPARISON: None ENCOUNTER: Not applicable FINDINGS: CT of abdomen with intravenous contrast: Liver, spleen, pancreas, adrenals, and kidneys have a normal CT appearance other than mild loba tion of the kidneys. The has been previously removed. There is no biliary dilatation. There is no bow el dilatation or bowel wall thickening. There is a hiatal hernia. Postoperative changes in the region of the proximal stomach suggest a prior gastric bypass, but the distal anastomosis is not identified . Bowel loops in the upper abdomen are otherwise unremarkable. There is no free air or free fluid. No enlarged lymph nodes are seen in the upper abdomen. The visible portions of the lung bases are clear. There are no discrete osseous lesions. CT pelvis with intravenous contrast: There is no free fluid. Bowel loops in the pelvis are unremarkable. The appendix is not seen. No infl ammatory changes are seen in the pelvis. The bladder is unremarkable. The uterus is absent. No enlarg ed lymph nodes are seen in the pelvis. There are no discrete osseous lesions. IMPRESSION: 1. Postoperative changes from a hysterectomy and cholecystectomy. There is also a suspected prior gas tric bypass procedure. 2. Hiatal hernia. If there has been a gastric bypass procedure, this hernia appears to contain the ga stric pouch. 3. The appendix is not seen. Dictated by: Francisco Simms MD on 05/28/2019 7:33 PM. .
== END 2019-05-28 20:00 | disposition home or self-care (01) ==
LOC: ER 18:03
DX: R10.84 Generalized abdominal pain (principal); R19.7 Diarrhea, unspecified
CPT/HCPCS: 99284 ×2; 96365; 96375; 96361; 85025; 80053; 81003; 74177; Q9967; J1885; J7030